=== PATIENT | female | born 1950 | race Caucasian/White ===

== ENCOUNTER 2020-01-08 17:21 | Outpatient (CLI) | payer MEDICARE, SELFPAY | END 2020-01-08 17:22 | disposition home or self-care (01) | LOC: ANHLAB 17:25 | PROVIDERS: PCP Internal Medicine; Visit Provider Internal Medicine | DX: R19.7 Diarrhea, unspecified (principal) | CPT/HCPCS: 87045; 87046; 87427 ==

== ENCOUNTER → 2020-01-22 10:31 | Outpatient (CLI) | payer MEDICARE, OTHER, SELFPAY ==
--- NOTE | ~2020-01-22 | XR_ITS ---
EXAMINATION: XR hip RT min 2V DATE: 01/22/2020 11:07 INDICATION: Anterior right hip pain and limited range of motion post fall 5-6 weeks prior. TECHNIQUE: Anteroposterior and frog-leg lateral views of the right hip were obtained. COMPARISON: None. FINDINGS: Alignment is normal. No fracture or suspected avascular necrosis. Mild right hip osteoarthritis with small marginal osteophytes along the femoral head and acetabulum but relatively preserved joint space . Mild osteoarthritis at the right sacroiliac joint and moderate lower lumbar facet osteoarthritis. M ultiple phleboliths in the pelvis. IMPRESSION: 1. Mild right hip osteoarthritis. Reviewed, dictated and finalized at location B.
== END ==
PROVIDERS: PCP Internal Medicine; Visit Provider Internal Medicine
DX: M25.551 Pain in right hip (principal); W19.XXXA Unspecified fall, initial encounter; M17.11 Unilateral primary osteoarthritis, right knee
CPT/HCPCS: 73502

== ENCOUNTER → 2020-07-11 01:58 | Outpatient (CLI) | payer MEDICARE, OTHER, SELFPAY ==
[2020-07-11 19:34] LABS: SARS-CoV-2 RNA PCR Negative
== END ==
PROVIDERS: PCP Internal Medicine; Visit Provider Internal Medicine Gastroenterology
DX: Z01.812 Encounter for preprocedural laboratory examination (principal); Z20.822 Contact with and (suspected) exposure to COVID-19
CPT/HCPCS: C9803; U0003; U0005

== ENCOUNTER 2020-07-15 01:06 | Day surgery (SDC) | payer MEDICARE, OTHER, SELFPAY ==
[2020-07-02 12:08] VITALS: BMI 28.0
[2020-07-15 10:57] VITALS: BP 112/73; PULSE 94; RESP 16; TEMP 36.8; O2SAT 97; BMI 28.7
[2020-07-15] MEDS: LACTATED RINGERS 1,000 ML 150 ML IV CONT (11:09)
--- NOTE | 2020-07-15 11:24 | WPDANESEPPF ---
Anes - Initial Pre Proc Eval Procedure: Operation Date: 07/15/20 12:30 Proposed Procedures p Colonoscopy - Tashi Grimes MD Date/Time: 07/15/20 11:24 Surgeon: Tashi Grimes MD Pre Op Diagnosis: constipation Patient Data Age: 70 Gender: F Height: 5 ft 1 in Weight: 69 kg Last Vital Signs Temp 98.3 F 07/15/20 10:57 Pulse 94 07/15/20 10:57 Resp 16 07/15/20 10:57 BP 112/73 07/15/20 10:57 Pulse Ox 97 07/15/20 10:57 Allergies Allergy/AdvReac Type Severity Reaction Status Date / Time No Known Allergies Allergy Verified 07/15/20 10:54 Home Medications Medication Instructions Recorded Confirmed Type albuterol sulfate 90 mcg/actuation 2 puff INHALATION Q4-6H #6.7 gm 05/31/19 07/02/20 Rx aerosol inhaler melatonin 5 mg tablet 5 mg PO .BEDTIME tablet 05/31/19 07/15/20 History buspirone 15 mg tablet 15 mg PO DAILY #90 tablet 02/28/20 07/15/20 Rx trazodone 150 mg tablet See Rx Instructions .ROUTE 03/30/20 07/15/20 Rx .COMPLEX #90 tablet ropinirole 1 mg tablet See Rx Instructions .ROUTE 05/27/20 07/15/20 Rx .COMPLEX #90 tablet losartan 50 mg tablet See Rx Instructions .ROUTE 06/22/20 07/15/20 Rx .COMPLEX #90 tablet alendronate [Fosamax] 70 mg PO WEEKLY 07/02/20 07/15/20 History clonazepam [Klonopin] 1 mg PO .COMPLEX PRN 07/02/20 07/15/20 History levothyroxine [Synthroid] 88 mcg PO DAILY 07/02/20 07/15/20 History venlafaxine [Effexor XR] 150 mg PO DAILY 07/02/20 07/15/20 History linaclotide 290 mcg capsule See Rx Instructions .ROUTE 07/06/20 07/15/20 Rx .COMPLEX #90 cap Patient hx anesthesia problems: none Family hx anesthesia problems: none PMFSH Past Medical History Medical History (Updated 06/03/20 @ 14:27 by Marycruz Ortiz DISABILITY REPRESENTATIVE-C) Acute insomnia Allergic rhinitis, seasonal Anxiety Arthritis Bacterial vaginosis Blood clotting disorder Bowel trouble Broken wrist Dementia Depression Diverticulitis GERD (gastroesophageal reflux disease) 6, not currently Hematuria Hemorrhoids Herniated disc High cholesterol History of anemia History of migraine headaches Kidney disease Mammogram abnormal Meniscus degeneration Normal colonoscopy Renal cyst RLS (restless legs syndrome) Stroke Suicide attempt Surgical History Surgical History History of appendectomy Knee joint replacement status Previous back surgery Family History Family History Father Family history of lung disease Depression Family history of malignant neoplasm of gastrointestinal tract Family history of migraine headaches Mother Family history of heart disease in male family member before age 55 Sibling Depression Family history of migraine headaches Other Family history of alcoholism Family history of mental disorder Hypertension Social History Social History Smoking packs per day: 1 Smoking cigarettes per day: 20.0 Years smoked: 6 Smoking pack-years: 6.00 Smoking status: Former smoker Tobacco type: cigarettes Second hand tobacco smoke exposure: No Alcohol intake: current Substance use type: does not use Living arrangements: with family Gender identity (if verbalized by the patient): Female Anes - Eval Final PreProcedure Day of Procedure 07/15/20 11:24 Patient weight: overweight Heart: regular rate and rhythm Lungs: clear to auscultation Airway: Mallampati scale class II Neurological: alert and oriented Last oral intake: >/= 8 hours ASA classification: III Emergent: no Anesthetic plan: proceed Anesthesia type and monitoring: general GIVS and standard monitoring Informed Consent: The patient's anesthetic plan and its attendant risks and benefits were discussed with the patient/family/POA. Questions were solicited and answers provided to the sa
--- NOTE | 2020-07-15 11:43 | PM.HPGS ---
History of Present Illness History of Present Illness Consent: Risks, benefits, and alternatives have been discussed and questions answered. Patient agrees to proceed with procedure. Chief complaint: constipation Narrative: Zena Butler is a 70 year old female with last colonoscopy 5 years ago, father with colon cancer Review of Systems Constitutional: Constitutional: Denies headache(s) and Denies weakness Eyes: Eyes: Denies blurry vision ENT: Reports Normal hearing present, Denies headache(s) and Denies neck pain Cardiovascular: Cardiovascular: Denies chest pain and Denies dyspnea Respiratory: Respiratory: Denies dyspnea Gastrointestinal: Gastrointestinal: Reports no additional gastrointestinal complaints Genitourinary: Genitourinary: Denies dysuria Musculoskeletal: Musculoskeletal: Denies neck pain Integumentary/Breasts: Skin/Breast: Denies dry skin Neurologic: Reports Normal hearing present, Denies headache(s) and Denies weakness Psychiatric: Psychiatric: Denies anxiety Endocrine: Endocrine: Denies change in body appearance Hematologic/Lymphatic: Hematologic/Lymphatic: Denies easy bleeding Allergic/Immunologic: Allergic/Immunologic: Denies urticaria PMFSH Past Medical History Medical History (Updated 07/15/20 @ 11:44 by Tashi Grimes MD) Acute insomnia Allergic rhinitis, seasonal Anxiety Arthritis Bacterial vaginosis Blood clotting disorder Bowel trouble Broken wrist Dementia Depression Diverticulitis Family history of colon cancer GERD (gastroesophageal reflux disease) 6, not currently Hematuria Hemorrhoids Herniated disc High cholesterol History of anemia History of migraine headaches Kidney disease Mammogram abnormal Meniscus degeneration Normal colonoscopy Renal cyst RLS (restless legs syndrome) Stroke Suicide attempt Surgical History Surgical History History of appendectomy Knee joint replacement status Previous back surgery Family History Family History Father Family history of lung disease Depression Family history of malignant neoplasm of gastrointestinal tract Family history of migraine headaches Mother Family history of heart disease in male family member before age 55 Sibling Depression Family history of migraine headaches Other Family history of alcoholism Family history of mental disorder Hypertension Social History Social History Smoking packs per day: 1 Smoking cigarettes per day: 20.0 Years smoked: 6 Smoking pack-years: 6.00 Smoking status: Former smoker Tobacco type: cigarettes Second hand tobacco smoke exposure: No Alcohol intake: current Substance use type: does not use Living arrangements: with family Gender identity (if verbalized by the patient): Female Meds Home Medications and Allergies Home Medications Medication Instructions Recorded Confirmed Type albuterol sulfate 90 mcg/actuation 2 puff INHALATION Q4-6H #6.7 gm 05/31/19 07/02/20 Rx aerosol inhaler melatonin 5 mg tablet 5 mg PO .BEDTIME tablet 05/31/19 07/15/20 History buspirone 15 mg tablet 15 mg PO DAILY #90 tablet 02/28/20 07/15/20 Rx trazodone 150 mg tablet See Rx Instructions .ROUTE 03/30/20 07/15/20 Rx .COMPLEX #90 tablet ropinirole 1 mg tablet See Rx Instructions .ROUTE 05/27/20 07/15/20 Rx .COMPLEX #90 tablet losartan 50 mg tablet See Rx Instructions .ROUTE 06/22/20 07/15/20 Rx .COMPLEX #90 tablet alendronate [Fosamax] 70 mg PO WEEKLY 07/02/20 07/15/20 History clonazepam [Klonopin] 1 mg PO .COMPLEX PRN 07/02/20 07/15/20 History levothyroxine [Synthroid] 88 mcg PO DAILY 07/02/20 07/15/20 History venlafaxine [Effexor XR] 150 mg PO DAILY 07/02/20 07/15/20 History linaclotide 290 mcg capsule See Rx Instructions .ROUTE 07/06/20 07/15/20 Tulio
[2020-07-15 12:09] VITALS: BP 96/61; PULSE 89; RESP 30; O2SAT 94
[2020-07-15 12:19] VITALS: BP 107/72; PULSE 67; RESP 17; O2SAT 100
[2020-07-15 12:29] VITALS: BP 106/69; PULSE 76; RESP 22; O2SAT 100
== END 2020-07-15 12:48 | disposition home or self-care (01) ==
PROVIDERS: PCP Internal Medicine; Visit Provider Internal Medicine Gastroenterology
PROC: 0DJD8ZZ Inspection of Lower Intestinal Tract, Via Natural or Artificial Opening Endoscopic (ICD-10-PCS; CPT 45378; principal; 2020-07-15 12:30)
DX: Z12.11 Encounter for screening for malignant neoplasm of colon (principal); K57.30 Diverticulosis of large intestine without perforation or abscess without bleeding; K64.8 Other hemorrhoids; Z80.0 Family history of malignant neoplasm of digestive organs; K21.9 Gastro-esophageal reflux disease without esophagitis; F03.90 Unspecified dementia, unspecified severity, without behavioral disturbance, psychotic disturbance, mood disturbance, and anxiety; E78.00 Pure hypercholesterolemia, unspecified; G25.81 Restless legs syndrome; Z86.73 Personal history of transient ischemic attack (TIA), and cerebral infarction without residual deficits; F32.9 Major depressive disorder, single episode, unspecified; Z79.51 Long term (current) use of inhaled steroids; Z87.891 Personal history of nicotine dependence
CPT/HCPCS: G0105; C9803; J2704; J7120; U0003; U0005

== ENCOUNTER 2020-07-18 09:59 | Outpatient (CLI) | payer MEDICARE, OTHER, SELFPAY ==
--- NOTE | ~2020-07-18 | US_ITS ---
EXAMINATION: US abdomen complete DATE: 07/18/2020 10:30 INDICATION: Unspecified abdominal pain TECHNIQUE: Multiple grayscale and Doppler ultrasound images of the abdomen were obtained. COMPARISON: CT, 08/11/2017 FINDINGS: The head and body of the pancreas are normal. The pancreatic tail is obscured by bowel gas. The liver is normal with normal echogenicity and echotexture. No surface nodularity. Normal hepatope rosy flow in the main portal vein. The gallbladder is surgically absent. The normal common bile duct m easures 4 mm. The visualized portions of the aorta and inferior vena cava are normal. The right kidney measures 9.1 x 4.8 x 4.8 cm. The left kidney measures 8.3 x 3.5 x 4.4 cm and contain s a 6.2 cm cyst. The kidneys demonstrate normal parenchymal echogenicity. The bladder area was scanne d however the bladder is not visualized due to recent voiding. There is no hydronephrosis. The spleen is normal in appearance and measures 9.7 cm. IMPRESSION: 1. Unremarkable postcholecystectomy ultrasound. Reviewed, dictated and finalized at location F.
== END 2020-07-18 10:00 | disposition home or self-care (01) ==
PROVIDERS: PCP Internal Medicine; Visit Provider Nurse Practitioner
DX: R10.9 Unspecified abdominal pain (principal)
CPT/HCPCS: 76700

== ENCOUNTER → 2021-01-29 05:20 | Outpatient (CLI) | payer MEDICARE, OTHER, SELFPAY ==
[2021-01-29 16:43] LABS: SARS-CoV-2 RNA PCR Negative
== END ==
PROVIDERS: PCP Internal Medicine; Visit Provider Internal Medicine
DX: R68.89 Other general symptoms and signs (principal); Z20.822 Contact with and (suspected) exposure to COVID-19
CPT/HCPCS: C9803; U0003; U0005

== ENCOUNTER 2021-07-17 15:53 | Emergency (ER) | payer MEDICARE, OTHER, SELFPAY ==
--- NOTE | ~2021-07-17 | CT_ITS ---
EXAMINATION: CT abdomen pelvis w con DATE: 07/17/2021 17:10 INDICATION: lower abd pain, no bm for 6 days now with nausea. TECHNIQUE: Computed tomography (CT) of the abdomen and pelvis was performed with 100 mL Omnipaque-350 intravenous contrast. The dose-length product was 444.63 mGy-cm. COMPARISON: 08/11/2017. FINDINGS: Lower thorax: Bibasilar atelectasis. Mild coronary artery calcification. Liver: Normal. Biliary/Gallbladder: Gallbladder is absent. No bile duct dilation. Spleen: Normal. Pancreas: No mass or duct dilation. Adrenals:No mass. Kidneys: Left upper pole simple renal cyst. Left lower pole nephrolith. No hydronephrosis. Scattered bilateral hypodensities that are too small to characterize. GI tract: Distal esophageal and gastric wall edema as can be seen with gastritis. No small or large b owel dilation. Visualized. Mesentery/Peritoneum: No ascites, mass, or free air. Retroperitoneum: No mass. Pelvis: Uterus not visualized, otherwise the organs are within normal limits. Bones/Soft Tissues: Soft tissues and body wall unremarkable. Grade 1 anterolisthesis of L4 on L5. No pars defect. Additional Findings: None. IMPRESSION: No acute abdominopelvic process. Reviewed, dictated and finalized at location K.
[2021-07-17 16:03] VITALS: BP 129/80; PULSE 98; RESP 16; TEMP 36.6; O2SAT 97
--- NOTE | 2021-07-17 16:08 | ED.ABDPAIN ---
HPI - Abdominal Pain General Chief Complaint: Abdominal Pain Stated Complaint: think i have a bowel blockage Time Seen by Provider: 07/17/21 15:54 Source: patient History of Present Illness HPI narrative: Patient presents with abdominal pain. Patient reports she has a longstanding history of constipation has a bowel movement approximately once a week and required multiple doses of MiraLAX and stool softeners to initiate her bowel movement. Last bowel movement was approximately 6 days ago but she also reports she had a liquidy stool this morning has attempted her usual routine but now has some nausea so she came to the ER for evaluation. Patient also reporting abdominal pain for the past 3 days is achy, constant, no radiation, no clear aggravating or alleviating factors. She denies any urinary symptoms denies any fever any known sick contacts. Related Data Allergies Allergy/AdvReac Type Severity Reaction Status Date / Time No Known Allergies Allergy Verified 07/17/21 16:22 Review of Systems Review of Systems: CONSTITUTIONAL: Denies fever, chills, or sweats. EYES: Denies visual changes, redness, or discharge. ENT: Denies rhinorrhea, congestion, sore throat, or otalgia. CARDIOVASCULAR: Denies chest pain, palpitations, or edema. RESPIRATORY: Denies cough or dyspnea. GASTROINTESTINAL: Mild pain nausea and vomiting GENITOURINARY: Denies dysuria or hematuria. SKIN: Denies rash or itching. MUSCULOSKELETAL: Denies back pain, joint pain, or myalgia. NEUROLOGIC: Denies headache, numbness, dizziness, or weakness. PSYCHIATRIC: Denies anxiety or depression. All systems reviewed & are unremarkable except as noted in HPI and below PMFSH Past Medical History Medical History Acute insomnia Allergic rhinitis, seasonal Anxiety Arthritis Bacterial vaginosis Blood clotting disorder Bowel trouble Broken wrist Dementia Depression Diverticulitis GERD (gastroesophageal reflux disease) 6, not currently Hematuria Hemorrhoids Herniated disc High cholesterol History of anemia History of migraine headaches Kidney disease Mammogram abnormal Meniscus degeneration Normal colonoscopy Renal cyst RLS (restless legs syndrome) Screening for lipid disorders Stroke Suicide attempt Surgical History Surgical History History of appendectomy Knee joint replacement status Previous back surgery Family History Family History Father Family history of lung disease Depression Family history of malignant neoplasm of gastrointestinal tract Family history of migraine headaches Mother Family history of heart disease in male family member before age 55 Sibling Depression Family history of migraine headaches Other Family history of alcoholism Family history of mental disorder Hypertension Social History Social History Smoking packs per day: 1 Smoking cigarettes per day: 20.0 Years smoked: 6 Smoking pack-years: 6.00 Smoking status: Never smoker Tobacco type: cigarettes Second hand tobacco smoke exposure: No Alcohol intake: current Substance use type: does not use Gender identity (if verbalized by the patient): Female Exam Narrative: GENERAL: Well-appearing, well-nourished, and in no acute distress. HEAD: Normocephalic, atraumatic. EYES: PERRLA and EOMI. ENT: Nares clear, no rhinorrhea or epistaxis. Mucous membranes moist. NECK: Supple. No masses. No JVD CHEST: Clear to auscultation. No respiratory distress. No wheezes rales or rhonchi HEART: Regular rate and rhythm. No murmur heard. Normal peripheral pulses. ABDOMEN: Mild pain with deep palpation in the lower abdomen no rebound or guarding soft, nondistended EXTREMITIES: Normal range of motion. No edema. SKIN: Warm, dry, no holli
[2021-07-17] MEDS: SODIUM CHLORIDE 0.9% IV 1,000 ML 999 ML IV CONT (16:25)
[2021-07-17 16:27] LABS: Basophils Percent Auto 0.5 % (0.2-1.2); Eosinophils Absolute Auto 0.1 K/mm3 (0-0.3); Hematocrit 39.3 % (37.0-47.0); Hemoglobin 12.4 g/dL (12.0-15.0); Immature Granulocyte Absolute 0.04 K/mm3 (0.00-0.031); Immature Granulocyte Percent A 0.5 % (0-0.5); Lymphocytes Absolute Auto 1.91 K/mm3 (0.9-3.2); Lymphocytes Percent Auto 23.1 % (18.3-44.2); Mean Corpuscular HGB Conc 31.6 g/dl (32-36); Mean Corpuscular Hemoglobin 26.7 pg (26-34); Mean Corpuscular Volume 84.7 fl (80-100); Mean Platelet Volume 9.3 fl (7.4-10.4); Monocytes Absolute Auto 0.6 K/mm3 (0.1-0.6); Monocytes Percent Auto 7.5 % (2.6-8.5); Neutrophils Absolute Auto 5.6 K/mm3 (1.3-6.7); Neutrophils Percent Auto 67.4 % (45.5-73.1); Platelet Count Result 203 k/mm3 (150-375); Red Blood Count 4.64 M/mm3 (4.2-5.4); Red Cell Distribution Width 14.4 % (11.5-14.5); White Blood Count 8.3 K/mm3 (4.5-10.0)
[2021-07-17 16:31] LABS: Add Urine Microscopic? YES; Appearance Urine Clear (Clear); Bilirubin Urine Negative (Negative); Blood Urine 2+ (Negative); Color Urine Straw (Yellow); Glucose Urine UA Negative (Negative); Ketones Urine Negative (Negative); Leukocyte Esterase Ur Negative LEU/UL (Negative); Nitrate Urine Negative (Negative); Protein Urine Negative (Negative); RBC Urine 0-2 /hpf (0-2); Urobilinogen Urine Negative mg/dL (<2.0); WBC Urine 0-3 /hpf
[2021-07-17 16:34] LABS: Specific Grav Ur 1.003 (1.001-1.035)
[2021-07-17 16:36] LABS: Alanine Aminotransferase 13 U/L (4-35); Albumin Level 4.2 g/dL (3.5-5.1); Alkaline Phosphatase 72 U/L (38-126); Anion Gap 7 mmol/L (8-16); Aspartate Amino Transferase 23 U/L (14-36); Bilirubin,Total 0.3 mg/dL (0.2-1.3); Blood Urea Nitrogen 16 mg/dL (7-17); Calcium 8.7 mg/dL (8.4-10.2); Carbon Dioxide 24 mmol/L (22-30); Chloride 105 mmol/L (98-107); Estimated CRCL calculation 52 ml/min; Estimated Glomerular Filt Rate > 60; Glucose 106 mg/dL (65-110); Lipase 72 U/L (23-300); Potassium 3.7 mmol/L (3.4-5.0); Sodium 136 mmol/L (137-145)
[2021-07-17 16:52] VITALS: BP 133/89; PULSE 90; RESP 14; O2SAT 97
[2021-07-17 18:12] VITALS: BP 117/73; PULSE 89; RESP 15; O2SAT 97
== END 2021-07-17 18:15 | disposition home or self-care (01) ==
PROVIDERS: Emergency Provider Emergency Medicine; PCP Internal Medicine
DX: R10.30 Lower abdominal pain, unspecified (principal); K59.09 Other constipation; F03.90 Unspecified dementia, unspecified severity, without behavioral disturbance, psychotic disturbance, mood disturbance, and anxiety; E78.00 Pure hypercholesterolemia, unspecified; N28.9 Disorder of kidney and ureter, unspecified; M19.90 Unspecified osteoarthritis, unspecified site; K21.9 Gastro-esophageal reflux disease without esophagitis; G25.81 Restless legs syndrome; D68.9 Coagulation defect, unspecified; F17.210 Nicotine dependence, cigarettes, uncomplicated; Z86.2 Personal history of diseases of the blood and blood-forming organs and certain disorders involving the immune mechanism; Z86.73 Personal history of transient ischemic attack (TIA), and cerebral infarction without residual deficits; Z96.659 Presence of unspecified artificial knee joint
CPT/HCPCS: 36415; 74177; 80053; 81001; 83690; 85025; 96360; 99284; J7030; Q9967

== ENCOUNTER 2022-02-24 16:45 | Emergency (ER) | payer MEDICARE, SELFPAY ==
[2022-02-24 16:52] VITALS: BP 129/82; PULSE 90; RESP 16; TEMP 36.9; O2SAT 97
== END 2022-02-24 17:33 | disposition left against medical advice (07) ==
LOC: EXPGOSH 16:47
PROVIDERS: Emergency Provider Registered Nurse; PCP Internal Medicine
DX: Z53.21 Procedure and treatment not carried out due to patient leaving prior to being seen by health care provider (principal)
CPT/HCPCS: 99199

== ENCOUNTER 2022-07-15 12:57 | Outpatient (CLI) | payer MEDICARE, SELFPAY ==
[2022-07-15 14:00] LABS: Appearance Urine Clear (Clear); Bacteria Urine None Seen /hpf; Bilirubin Urine Negative (Negative); Blood Urine Trace (Negative); Color Urine Yellow (Yellow); Glucose Urine UA Negative (Negative); Ketones Urine Negative (Negative); Leukocyte Esterase Ur Negative LEU/UL (NEGATIVE); Nitrate Urine Negative (Negative); Non Pathogenic Casts 0-2; Protein Urine Negative (Negative); Specific Grav Ur 1.014 (1.001-1.035); Squamous Epithelial Cell Urine None seen /hpf (Few); Urobilinogen Urine 0.2 mg/dL (<2.0); WBC Urine 0-5 /hpf (0-3)
[2022-07-15 14:06] LABS: Add Urine Microscopic? YES
== END 2022-07-15 12:58 | disposition home or self-care (01) ==
LOC: ANHLAB 12:59
PROVIDERS: PCP Internal Medicine; Visit Provider Nurse Practitioner
DX: R31.9 Hematuria, unspecified (principal)
CPT/HCPCS: 81001

== ENCOUNTER 2022-07-29 09:12 | Outpatient (CLI) | payer MEDICARE, SELFPAY ==
[2022-07-29 09:34] LABS: Appearance Urine Clear (Clear); Bacteria Urine None Seen /hpf; Bilirubin Urine Negative (Negative); Blood Urine 2+ (Negative); Color Urine Yellow (Yellow); Glucose Urine UA Negative (Negative); Ketones Urine Trace mg/dL (Negative); Leukocyte Esterase Ur Trace LEU/UL (Negative); Nitrate Urine Negative (Negative); Non Pathogenic Casts 0-2; Protein Urine Negative (Negative); Specific Grav Ur 1.016 (1.001-1.035); Squamous Epithelial Cell Urine None seen /hpf (Few); WBC Urine 0-5 /hpf
[2022-07-29 09:38] LABS: Add Urine Microscopic? YES
== END 2022-07-29 09:13 | disposition home or self-care (01) ==
PROVIDERS: PCP Internal Medicine; Visit Provider Nurse Practitioner
DX: R31.9 Hematuria, unspecified (principal)
CPT/HCPCS: 81001

== ENCOUNTER 2022-08-09 10:43 | Emergency (ER) | payer MEDICARE, OTHER, SELFPAY ==
--- NOTE | ~2022-08-09 | XR_ITS ---
EXAMINATION: XR heel RT min 2V DATE: 08/09/2022 11:11 INDICATION: Right heel pain TECHNIQUE: Lateral and axial views of the right calcaneus were obtained. COMPARISON: None. FINDINGS: Bone alignment is normal. No fracture. Joint spaces are normal. No ankle joint effusion. Small Achill es and plantar calcaneal spurs with additional small enthesopathic ossicle at the distal Achilles ten don. No erosions. IMPRESSION: 1. Chronic Achilles and plantar calcaneal enthesopathy with small enthesophytes and small enthesopath ic ossicle in the distal Achilles tendon. Reviewed, dictated and finalized at location L. IMPRESSION: 1. Chronic Achilles and plantar calcaneal enthesopathy with small enthesophytes and small enthesopathic ossicle in the distal Achilles tendon.
--- NOTE | 2022-08-09 10:46 | ED.LOWEXIN ---
HPI - Extremity Injury (Lower) General Chief Complaint: Extremity Injury, Lower Stated Complaint: R HEEL PAIN Time Seen by Provider: 08/09/22 10:46 Source: patient and RN notes reviewed History of Present Illness HPI Narrative: Patient is a 72-year-old female who presents to urgent care with complaints of right heel pain that radiates to the side of the foot. Patient states she believes she has plantar fasciitis. States that she had this issue approximately 6 months ago and saw information security analyst to gave her a cortisone shot. Patient states she has been working in the [employer] a lot and wanted to make sure she did not fracture or injure the heel. Patient is requesting another cortisone shot if it truly is plantar fasciitis. Patient has not taken anything [id number] for her pain. States that she does wear insoles in her shoes without any relief. No other acute complaints. No acute distress noted. Patient aware of the plan of care. Some parts of this dictation were generated by voice recognition software and may contain typographical and/or grammatical inaccuracies. Related Data Home Medications Medication Instructions Recorded Confirmed albuterol sulfate 90 mcg/actuation 2 puff inhalation Q4-6H PRN 06/21/22 08/09/22 aerosol inhaler Shortness Of Breath buspirone 15 mg tablet 15 mg PO ONCE 06/29/22 08/09/22 Allergies Allergy/AdvReac Type Severity Reaction Status Date / Time No Known Allergies Allergy Verified 08/09/22 10:53 Review of Systems Review of Systems: CONSTITUTIONAL: Denies fever, chills, or sweats. EYES: Denies visual changes, redness, or discharge. ENT: Denies rhinorrhea, congestion, sore throat, or otalgia. CARDIOVASCULAR: Denies chest pain, palpitations, or edema. RESPIRATORY: Denies cough or dyspnea. GASTROINTESTINAL: Denies abdominal pain, nausea, vomiting, or diarrhea. GENITOURINARY: Denies dysuria or hematuria. SKIN: Denies rash or itching. MUSCULOSKELETAL: Reports of right heel pain NEUROLOGIC: Denies headache, numbness, or weakness. All other systems reviewed are negative, except as documented in HPI. [facility] Past Medical History Medical History (Updated 08/09/22 @ 11:51 by JAELYN Hernandez) Acute insomnia Allergic rhinitis, seasonal Anxiety Arthritis Bacterial vaginosis Blood clotting disorder Bowel trouble Broken wrist Cataract (lens) fragments in eye following cataract surgery, bilateral COVID-19 Dementia Depression Diverticulitis GERD (gastroesophageal reflux disease) 6, not currently Hematuria Hemorrhoids Herniated disc High cholesterol History of anemia History of migraine headaches Kidney disease Mammogram abnormal Meniscus degeneration Normal colonoscopy Renal cyst RLS (restless legs syndrome) Screening for lipid disorders Stroke Suicide attempt Surgical History Surgical History History of appendectomy Knee joint replacement status Previous back surgery Family History Family History Father Family history of lung disease Depression Family history of malignant neoplasm of gastrointestinal tract Family history of migraine headaches Mother Family history of heart disease in male family member before age 55 Sibling Depression Family history of migraine headaches Other Family history of alcoholism Family history of mental disorder Hypertension Social History Social History Smoking packs per day: 1 Smoking cigarettes per day: 20.0 Years smoked: 6 Smoking pack-years: 6.00 Smoking status: Former smoker Tobacco type: cigarettes Second hand tobacco smoke exposure: No Smoking end date: 04/10/75 Alcohol intake: never Substance use: current Substance use type: marijuana Living arrangements: with family Gender identity (if verbalized by the patient): Female
[2022-08-09 10:54] VITALS: BP 125/83; PULSE 85; RESP 16; TEMP 36.4; O2SAT 99
[2022-08-09 11:00] VITALS: BP 125/83; PULSE 85; RESP 16; TEMP 36.4; O2SAT 99
== END 2022-08-09 11:53 | disposition home or self-care (01) ==
PROVIDERS: Emergency Provider Nurse Practitioner Family; PCP Internal Medicine
DX: M77.31 Calcaneal spur, right foot (principal); Z87.891 Personal history of nicotine dependence; F12.90 Cannabis use, unspecified, uncomplicated; F41.9 Anxiety disorder, unspecified; M19.90 Unspecified osteoarthritis, unspecified site; Z86.16 Personal history of COVID-19; F03.90 Unspecified dementia, unspecified severity, without behavioral disturbance, psychotic disturbance, mood disturbance, and anxiety; F32.A Depression, unspecified; K21.9 Gastro-esophageal reflux disease without esophagitis; E78.00 Pure hypercholesterolemia, unspecified; G25.81 Restless legs syndrome; Z86.73 Personal history of transient ischemic attack (TIA), and cerebral infarction without residual deficits
CPT/HCPCS: 73650; 99213; G0463

== ENCOUNTER → 2022-08-17 14:10 | Outpatient (CLI) | payer MEDICARE, OTHER, SELFPAY ==
--- NOTE | ~2022-08-17 | MR_ITS ---
MRI of the lumbar spine Clinical History: Lumbar radiculopathy Technique: Axial T2-weighted images, and sagittal T1-weighted, T2-weighted, and T2 fat-sat images wer e acquired. Findings: Minimal grade 1 anterolisthesis of L4 over L5 noted. Minimal grade 1 retrolisthesis of L5 o tita S1 noted. No fracture. No suspicious bone marrow signal abnormality seen. At L1-L2, L2-L3, L3-L4, there is no disc bulge or herniation. There are moderate facet joint degenera tive changes at these levels. No spinal canal stenosis or neural foraminal narrowing at these levels. At L4-L5, there is minimal disc bulge. There is severe facet arthropathy bilaterally. No humble centra l canal stenosis. Bilateral neural foramina are preserved. At L5-S1, there is mild disc bulge and mild facet arthropathy. No humble spinal canal stenosis. There is moderate right neural foraminal narrowing and mild left neural foraminal narrowing. Paravertebral soft tissues are unremarkable. Impression: Bilateral neural foraminal narrowing at L5-S1, as detailed above. Additional mild degenerative changes, as above. Minimal grade 1 anterolisthesis of L4 over L5. Minimal grade 1 retrolisthesis of L5 over S1. Reviewed, dictated and finalized at location . Impression: Bilateral neural foraminal narrowing at L5-S1, as detailed above. Additional mild degenerative changes, as above. Minimal grade 1 anterolisthesis of L4 over L5. Minimal grade 1 retrolisthesis of L5 over S1.
== END ==
PROVIDERS: PCP Internal Medicine; Visit Provider Nurse Practitioner Family
DX: M54.16 Radiculopathy, lumbar region (principal)
CPT/HCPCS: 72148

== ENCOUNTER 2022-09-22 14:39 | Outpatient (CLI) | payer MEDICARE, OTHER, SELFPAY ==
--- NOTE | ~2022-09-22 | MM_ITS ---
EXAMINATION: MM screening [place] BI w [facility] HISTORY: Screening mammogram TECHNIQUE: Craniocaudal and mediolateral oblique 3-D tomosynthesis images were obtained and synthetic 2-D images were generated. CAD analysis was submitted and interpreted. COMPARISON: 08/03/2017, 12/15/2015 bilateral screening mammogram examinations BREAST PARENCHYMAL COMPOSITION: There are scattered areas of fibroglandular density. FINDINGS: There is no evidence of suspicious mass, calcification, or architectural distortion to sugg est malignancy in either breast. There has been no suspicious interval change. IMPRESSION: 1. No mammographic evidence of malignancy. 2. Recommend routine screening mammography in one year. BI-RADS Category 1: Negative Reviewed, dictated and finalized at location A.
== END 2022-09-22 14:40 | disposition home or self-care (01) ==
LOC: ANHIMG 14:42
PROVIDERS: PCP Internal Medicine; Visit Provider Nurse Practitioner
DX: Z12.31 Encounter for screening mammogram for malignant neoplasm of breast (principal)
CPT/HCPCS: 77063; 77067

== ENCOUNTER 2023-01-10 13:58 | Outpatient (CLI) | payer MEDICARE, OTHER, SELFPAY ==
[2023-01-10 15:01] LABS: Alanine Aminotransferase 16 U/L (6-35); Albumin Level 4.1 g/dL (3.5-5.1); Alkaline Phosphatase 63 U/L (38-126); Anion Gap 6 mmol/L (8-16); Aspartate Amino Transferase 22 U/L (14-36); Bilirubin,Total 0.5 mg/dL (0.2-1.3); Blood Urea Nitrogen 14 mg/dL (7-17); Calcium 8.5 mg/dL (8.4-10.2); Carbon Dioxide 30 mmol/L (22-30); Chloride 103 mmol/L (98-107); Cholesterol 192 mg/dL (0-200); Estimated Glomerular Filt Rate > 60; Glucose 94 mg/dL (65-110); HDL Direct 53 mg/dL; Potassium 3.8 mmol/L (3.4-5.0); Sodium 139 mmol/L (137-145); Triglycerides 130 mg/dL (<150)
[2023-01-10 15:25] LABS: Vitamin D 25 Hydroxy 43.1 ng/mL
[2023-01-10 15:59] LABS: LDL Cholesterol Direct 88 mg/dL
== END 2023-01-10 13:59 | disposition home or self-care (01) ==
LOC: ANHLAB 14:00
PROVIDERS: PCP Nurse Practitioner; Visit Provider Nurse Practitioner
DX: E78.2 Mixed hyperlipidemia (principal); E55.9 Vitamin D deficiency, unspecified
CPT/HCPCS: 36415; 80053; 80061; 82306

== ENCOUNTER 2023-01-31 13:52 | Emergency (ER) | payer MEDICARE, SELFPAY ==
[2023-01-31] VITALS (17 sets, daily range): BP systolic 121–141; BP diastolic 75–94; PULSE 77–108; RESP 17–20; TEMP 36.7; O2SAT 96–100
--- NOTE | ~2023-01-31 | CT_ITS ---
EXAMINATION: CT abdomen pelvis w con DATE: 01/31/2023 15:04 INDICATION: Abdomen pain with constipation TECHNIQUE: Computed tomography (CT) of the abdomen and pelvis was performed with 100 cc Omnipaque 350 intravenous contrast. The dose-length product was 489.96 mGy-cm. Automated exposure control and iter ative reconstruction technique were employed. COMPARISON: CT dated 07/17/2021. FINDINGS: There are air-fluid levels throughout the small bowel and:, Consistent with ileus. No obstr uction. Fatty infiltration of the liver. Status post cholecystectomy with expected prominence of the bile ducts. Lung bases unremarkable. There is a 6.8 cm left renal cyst. Status post hysterectomy. The spleen, pancreas, adrenal glands and right kidney are unremarkable. There is disc narrowing at L5-S1 . There is grade 1 degenerative spondylolisthesis at L4-5. There are nonobstructing left renal stones at the lower pole. IMPRESSION: 1. Air-fluid levels throughout the small bowel and colon, consistent with ileus. No obstruction. 2: Nonobstructing left nephrolithiasis. Reviewed, dictated and finalized at location L. IMPRESSION: 1. Air-fluid levels throughout the small bowel and colon, consistent with ileus . No obstruction. 2: Nonobstructing left nephrolithiasis.
[2023-01-31 14:19] LABS: Basophils Absolute Auto 0.1 K/mm3 (0.0-0.1); Basophils Percent Auto 0.7 % (0.2-1.2); Eosinophils Absolute Auto 0.1 K/mm3 (0-0.3); Eosinophils Percent Auto 1.2 % (0-4.4); Hematocrit 44.7 % (37.0-47.0); Hemoglobin 14.1 g/dL (12.0-15.0); Immature Granulocyte Absolute 0.08 K/mm3 (0.00-0.031); Immature Granulocyte Percent A 0.8 % (0-0.5); Lymphocytes Absolute Auto 2.24 K/mm3 (0.9-3.2); Lymphocytes Percent Auto 22.3 % (18.3-44.2); Mean Corpuscular HGB Conc 31.5 g/dl (32-36); Mean Corpuscular Volume 85.5 fl (80-100); Mean Platelet Volume 9.9 fl (7.4-10.4); Monocytes Absolute Auto 0.8 K/mm3 (0.1-0.6); Monocytes Percent Auto 8.3 % (2.6-8.5); Neutrophils Absolute Auto 6.7 K/mm3 (1.3-6.7); Neutrophils Percent Auto 66.7 % (45.5-73.1); Platelet Count Result 206 k/mm3 (150-375); Red Blood Count 5.23 M/mm3 (4.2-5.4); Red Cell Distribution Width 14.3 % (11.5-14.5)
--- NOTE | 2023-01-31 14:19 | ED.ABDPAIN ---
HPI - Abdominal Pain General Chief Complaint: Abdominal Pain <RAJINDER Jarrett Last Filed: 01/31/23 18:53> Stated Complaint: blocked bowel <RAJINDER Jarrett Last Filed: 01/31/23 18:53> Time Seen by Provider: 01/31/23 16:51 <RAJINDER Jarrett Last Filed: 01/31/23 18:53> Source: patient <RAJINDER Jarrett Last Filed: 01/31/23 18:53> Mode of arrival: ambulatory <RAJINDER Jarrett Last Filed: 01/31/23 18:53> Limitations: no limitations <RAJINDER Jarrett Last Filed: 01/31/23 18:53> History of Present Illness HPI narrative: This is a 72 year old female that presents to the ER for abdominal discomfort. Ongoing over the last week. Reports she has not had a bowel movement. She has been using enemas without relief. Denies fever or vomiting. <RAJINDER Jarrett Last Filed: 01/31/23 18:53> Related Data Home Medications: Home Medications Medication Instructions Recorded Confirmed albuterol sulfate 90 mcg/actuation 2 puff inhalation Q4-6H PRN 06/21/22 12/13/22 aerosol inhaler Shortness Of Breath buspirone 15 mg tablet 15 mg PO ONCE 06/29/22 12/13/22 <RAJINDER Jarrett Last Filed: 01/31/23 18:53> Allergies/Adverse Reactions: Allergies Allergy/AdvReac Type Severity Reaction Status Date / Time No Known Allergies Allergy Verified 01/31/23 13:53 <RAJINDER Jarrett Last Filed: 01/31/23 18:53> Review of Systems Review of Systems: CONSTITUTIONAL: Denies fever GASTROINTESTINAL: Reports abdominal pain. Denies nausea, vomiting, or diarrhea. GENITOURINARY: Denies dysuria <RAJINDER Jarrett Last Filed: 01/31/23 18:53> All systems reviewed & are unremarkable except as noted in HPI and below <RAJINDER Jarrett Last Filed: 01/31/23 18:53> [facility] Past Medical History Medical History: Medical History (Updated 02/01/23 @ 00:00 by Eduard Owens) Acute insomnia Allergic rhinitis, seasonal Anxiety Arthritis Bacterial vaginosis Blood clotting disorder Bowel trouble Broken wrist Cataract (lens) fragments in eye following cataract surgery, bilateral COVID-19 Dementia Depression Diverticulitis GERD (gastroesophageal reflux disease) 6, not currently Hematuria Hemorrhoids Herniated disc High cholesterol History of anemia History of migraine headaches Kidney disease Mammogram abnormal Meniscus degeneration Normal colonoscopy Renal cyst RLS (restless legs syndrome) Screening for lipid disorders Stroke Suicide attempt <Rosa Montero PA-C - Last Filed: 01/31/23 18:53> Surgical History Surgical History: Surgical History History of appendectomy Knee joint replacement status Previous back surgery <Rosa Montero PA-C - Last Filed: 01/31/23 18:53> Family History Family History: Family History (Updated 01/10/23 @ 13:23 by Altagracia Carl [facility]) Father Family history of lung disease Depression Family history of malignant neoplasm of gastrointestinal tract Family history of migraine headaches Family history of alcoholism Cancer Mother Family history of heart disease in male family member before age 55 Hypertension Sibling Depression Family history of migraine headaches Cancer Other Family history of mental disorder <Rosa Montero PA-C - Last Filed: 01/31/23 18:53> Social History Social History: Social History Smoking packs per day: 1 Smoking cigarettes per day: 20.0 Years smoked: 6 Smoking pack-years: 6.00 Smoking status: Former smoker Tobacco type: cigarettes Second hand tobacco smoke exposure: No Smoking end date: 04/10/75 Alcohol intake: never Substance use: current Substance use type: marijuana Lack of Transportation: No Current Housing: I Have Housing Concerned About Future Housing: No
[2023-01-31 14:28] LABS: Alanine Aminotransferase 19 U/L (6-35); Albumin Level 4.3 g/dL (3.5-5.1); Alkaline Phosphatase 64 U/L (38-126); Anion Gap 9 mmol/L (8-16); Aspartate Amino Transferase 23 U/L (14-36); Bilirubin,Total 0.6 mg/dL (0.2-1.3); Blood Urea Nitrogen 12 mg/dL (7-17); Calcium 8.8 mg/dL (8.4-10.2); Carbon Dioxide 25 mmol/L (22-30); Chloride 102 mmol/L (98-107); Estimated CRCL calculation 50 ml/min; Estimated Glomerular Filt Rate > 60; Glucose 118 mg/dL (65-110); Lipase 71 U/L (23-300); Potassium 3.6 mmol/L (3.4-5.0); Sodium 136 mmol/L (137-145)
[2023-01-31 14:36] LABS: Appearance Urine Clear (Clear); Bacteria Urine None Seen /hpf; Bilirubin Urine Negative (Negative); Blood Urine 1+ (Negative); Color Urine Yellow (Yellow); Glucose Urine UA Negative (Negative); Ketones Urine Negative (Negative); Leukocyte Esterase Ur Negative LEU/UL (Negative); Nitrate Urine Negative (Negative); Non Pathogenic Casts 0-2; Protein Urine Negative (Negative); RBC Urine 0-2 /hpf (0-2); Specific Grav Ur 1.009 (1.001-1.035); Squamous Epithelial Cell Urine None seen /hpf (Few); Urobilinogen Urine 0.2 mg/dL (<2.0); WBC Urine 0-5 /hpf; pH Urine 5.5 (5.0-9.0)
[2023-01-31 14:42] LABS: Add Urine Microscopic? YES
[2023-01-31] MEDS: METOCLOPRAMIDE HCL 10 MG TABLET PO (18:48)
== END 2023-01-31 19:01 | disposition home or self-care (01) ==
PROVIDERS: Emergency Medicine; Emergency Provider Emergency Medicine; PCP Nurse Practitioner
DX: K56.7 Ileus, unspecified (principal); F41.9 Anxiety disorder, unspecified; M19.90 Unspecified osteoarthritis, unspecified site; F03.90 Unspecified dementia, unspecified severity, without behavioral disturbance, psychotic disturbance, mood disturbance, and anxiety; K21.9 Gastro-esophageal reflux disease without esophagitis
CPT/HCPCS: 36415; 74177; 80053; 81001; 83690; 85025; 99284; A9270; Q9967

== ENCOUNTER 2023-02-07 13:09 | Outpatient (CLI) | payer MEDICARE, SELFPAY ==
--- NOTE | ~2023-02-07 | XR_ITS ---
EXAMINATION: XR abdomen obstructive series DATE: 02/07/2023 13:32 INDICATION: History of Crohn's disease. Ileus. TECHNIQUE: Supine and upright views of the abdomen. FINDINGS: 08/08/2011 The visualized lung parenchyma is normal.. There is a nonobstructive bowel gas pattern. Gas and stool are seen throughout the colon to the level of the rectum. There is no free air. There are left nasreen l stones. There are multiple pelvic phleboliths. There are cholecystectomy clips. IMPRESSION: 1. Left nephrolithiasis. Reviewed, dictated and finalized at location A. IMPRESSION: 1. Left nephrolithiasis.
== END 2023-02-07 13:10 | disposition home or self-care (01) ==
PROVIDERS: PCP Nurse Practitioner; Visit Provider Nurse Practitioner
DX: K56.7 Ileus, unspecified (principal); N20.0 Calculus of kidney
CPT/HCPCS: 74019

== ENCOUNTER 2023-02-24 00:31 | Day surgery (SDC) | payer MEDICARE, SELFPAY ==
[2023-02-21 14:41] VITALS: BMI 29.3
--- NOTE | 2023-02-22 10:13 | SUR.PREOP ---
Patient called regarding upcoming procedure. Reviewed preop instructions, appointment times, and procedure prep.
--- NOTE | 2023-02-22 10:16 | SUR.PREOP ---
Patient called regarding upcoming procedure. Reviewed preop instructions, appointment times, and procedure prep.
[2023-02-24 06:15] VITALS: BP 125/85; PULSE 119; RESP 18; TEMP 36.2; O2SAT 96
[2023-02-24] MEDS: LACTATED RINGERS 1,000 ML 150 ML IV CONT (06:23)
--- NOTE | 2023-02-24 07:23 | WPDHPUPDATE1 ---
History and Physical Update Update Date/Time: 02/24/23 07:23 History and Physical has been reviewed, including an updated exam of the patient. There are NO changes in the patient's condition. Risks, benefits, and alternatives have been discussed and questions answered. Patient agrees to proceed with procedure.
--- NOTE | 2023-02-24 07:42 | WPDANESEPPF ---
Anes - Initial Pre Proc Eval Procedure: Operation Date: 02/24/23 07:30 Proposed Procedures p Colonoscopy - Tashi Grimes MD Date/Time: 02/24/23 07:42 Surgeon: Tashi Grimes MD Pre Op Diagnosis: FA hx of malignant neoplasm of digestive organs Patient Data Age: 72 Gender: F Height: 1.52 m Weight: 69.1 kg Last Vital Signs Temp 97.1 F L 02/24/23 06:15 Pulse 119 H 02/24/23 06:15 Resp 18 02/24/23 06:15 BP 125/85 02/24/23 06:15 Pulse Ox 96 02/24/23 06:15 O2 Del Method Room Air 02/24/23 06:15 Allergies Allergy/AdvReac Type Severity Reaction Status Date / Time No Known Allergies Allergy Verified 02/24/23 06:15 Home Medications Medication Instructions Recorded Confirmed Type albuterol sulfate 90 mcg/actuation 2 puff inhalation Q4-6H PRN 06/21/22 02/21/23 History aerosol inhaler Shortness Of Breath linaclotide 290 mcg capsule See Rx Instructions .Route 11/01/22 02/21/23 Rx (Linzess) .COMPLEX #30 caps venlafaxine 150 mg See Rx Instructions .Route 11/28/22 02/21/23 Rx capsule,extended release 24 hr .COMPLEX #90 caps ropinirole 1 mg tablet See Rx Instructions .Route 12/05/22 02/21/23 Rx .COMPLEX #90 tabs alendronate 70 mg tablet 70 mg PO WEEKLY #12 tabs 12/13/22 02/21/23 Rx acetaminophen-calcium carbonat 500 2 tablet PO PRN PRN Pain 02/21/23 02/21/23 History mg-250 mg tablet buspirone 15 mg tablet 15 mg PO DAILY 02/21/23 02/21/23 History clonazepam 1 mg tablet 1 mg PO HS insomnia 02/21/23 02/21/23 History trazodone 150 mg tablet See Rx Instructions .Route 02/22/23 Rx .COMPLEX #90 tabs Patient hx anesthesia problems: none Family hx anesthesia problems: none Results Review: All pre-operative results and documents have been reviewed as part of the pre-operative evaluation. [facility] Past Medical History Medical History Acute insomnia Allergic rhinitis, seasonal Anxiety Arthritis Bacterial vaginosis Blood clotting disorder Bowel trouble Broken wrist Cataract (lens) fragments in eye following cataract surgery, bilateral COVID-19 Dementia Depression Diverticulitis GERD (gastroesophageal reflux disease) 6, not currently Hematuria Hemorrhoids Herniated disc High cholesterol History of anemia History of migraine headaches Kidney disease Mammogram abnormal Meniscus degeneration Normal colonoscopy Renal cyst RLS (restless legs syndrome) Screening for lipid disorders Stroke Suicide attempt Surgical History Surgical History History of appendectomy Knee joint replacement status Previous back surgery Family History Family History Father Family history of lung disease Depression Family history of malignant neoplasm of gastrointestinal tract Family history of migraine headaches Family history of alcoholism Cancer Mother Family history of heart disease in male family member before age 55 Hypertension Sibling Depression Family history of migraine headaches Cancer Other Family history of mental disorder Social History Social History Smoking packs per day: 1 Smoking cigarettes per day: 20.0 Years smoked: 6 Smoking pack-years: 6.00 Smoking status: Former smoker Tobacco type: cigarettes Second hand tobacco smoke exposure: No Smoking end date: 04/10/75 Alcohol intake: never Substance use: current Substance use type: marijuana Other substance usage details: 1/2 edible gummy for back pain a few times weekly Lack of Transportation: No Current Housing: I Have Housing Concerned About Future Housing: No Difficulty Paying Gas/Electric Bills: No Difficulty Paying for Meds: No Currently Unemployed: No Education: Trade/[employer]oc[employer]
[2023-02-24 07:50] VITALS: BP 106/67; PULSE 88; RESP 21; O2SAT 95
[2023-02-24 08:00] VITALS: BP 130/79; PULSE 91; RESP 24; O2SAT 95
[2023-02-24 08:10] VITALS: BP 139/87; PULSE 93; RESP 22; O2SAT 98
== END 2023-02-24 08:16 | disposition home or self-care (01) ==
PROVIDERS: PCP Family Medicine; Visit Provider Internal Medicine Gastroenterology
PROC: 0DJD8ZZ Inspection of Lower Intestinal Tract, Via Natural or Artificial Opening Endoscopic (ICD-10-PCS; CPT 45378; principal; 2023-02-24 07:30)
DX: K59.09 Other constipation (principal); K57.30 Diverticulosis of large intestine without perforation or abscess without bleeding; K64.8 Other hemorrhoids; G47.00 Insomnia, unspecified; F41.9 Anxiety disorder, unspecified; D64.9 Anemia, unspecified; F32.A Depression, unspecified; K21.9 Gastro-esophageal reflux disease without esophagitis; E78.00 Pure hypercholesterolemia, unspecified; F12.90 Cannabis use, unspecified, uncomplicated; F03.90 Unspecified dementia, unspecified severity, without behavioral disturbance, psychotic disturbance, mood disturbance, and anxiety; Z79.51 Long term (current) use of inhaled steroids; Z87.891 Personal history of nicotine dependence; Z80.0 Family history of malignant neoplasm of digestive organs; Z82.49 Family history of ischemic heart disease and other diseases of the circulatory system
CPT/HCPCS: 45378; J2704; J7120

== ENCOUNTER 2023-03-09 08:04 | Outpatient (CLI) | payer MEDICARE, SELFPAY ==
--- NOTE | ~2023-03-09 | XR_ITS ---
EXAMINATION: XR small bowel follow through DATE: 03/09/2023 09:00 INDICATION: Adynamic ileus. Constipation. TECHNIQUE: Oral contrast was administered, and a time course of radiographs of the abdomen was obtain ed. Fluoroscopy of the small bowel was performed. Fluoroscopy exposure time was 0.2 minutes. The tota l number of images was 12. COMPARISON: CT abdomen and pelvis 01/31/2023 FINDINGS: There are no dilated loops of bowel. There is no mass or stricture. The terminal ileum is normal. Tra nsit time from the stomach to proximal colon was approximately 15 minutes. IMPRESSION: 1. Normal small bowel series. Reviewed, dictated and finalized at location A. TER OPERATOR
--- NOTE | ~2023-03-09 | CT_ITS ---
EXAMINATION: CTA chest PE protocol DATE: 03/09/2023 11:42 BOXCAR WEIGHER INDICATION: Evaluate for pulmonary embolism. Abdomen pain. Abnormal results of pulmonary function shandra dies. TECHNIQUE: Computed tomographic angiography (CTA) of the chest was performed with 100 mL Omnipaque-35 0 intravenous contrast. The dose-length product was 229.38 mGy-cm. Maximum intensity projection 3D-re constructions of the aorta and other arteries were constructed by the technologist on a separate work station. Automated exposure control and iterative reconstruction technique were employed. COMPARISON: Chest x-ray dated 11/19/2018. FINDINGS: Study is technically adequate. There are small weblike filling defects and segmental and melchor bsegmental pulmonary arteries bilaterally involving the right middle lobe, left upper lobe and right lower lobe, consistent with pulmonary embolism, small thrombus burden, possibly chronic. No thoracic lymphadenopathy. No evidence for aortic aneurysm or dissection. No significant pleural or pericardial effusion. Heart size normal. Status post cholecystectomy. There is a 6.8 cm left renal cyst. There i s dependent atelectasis. No endobronchial lesions. No pneumothorax. IMPRESSION: 1. Bilateral pulmonary embolism, small thrombus burden, possibly at least partially chronic. Dr. Jackson Shaw discussed with Dr. Tashi Grimes MD at 03/09/2023 11:50 BOXCAR WEIGHER. Reviewed, dictated and finalized at location L. AR WEIGHER IMPRESSION: 1. Bilateral pulmonary embolism, small thrombus burden, possibly at least parti ally chronic. Dr. Jackson Shaw discussed with Dr. Tashi Grimes MD at 03/09/2023 11:50 BOXCAR WEIGHER.
[2023-03-09 11:34] LABS: Estimated Glomerular Filt Rate > 60
== END 2023-03-09 08:05 | disposition home or self-care (01) ==
PROVIDERS: PCP Family Medicine; Visit Provider Internal Medicine Gastroenterology
DX: K56.7 Ileus, unspecified (principal); R19.8 Other specified symptoms and signs involving the digestive system and abdomen; I26.99 Other pulmonary embolism without acute cor pulmonale
CPT/HCPCS: 71275; 74250; Q9967

== ENCOUNTER 2023-03-09 12:04 | Emergency (ER) | payer MEDICARE, SELFPAY ==
[2023-03-09] VITALS (9 sets, daily range): BP systolic 126–158; BP diastolic 73–96; PULSE 71–80; RESP 16–29; TEMP 36.6; O2SAT 89–99
--- NOTE | ~2023-03-09 | US_ITS ---
EXAMINATION:US venous doppler LE BI INDICATION:Right lateral thigh pain TECHNIQUE: Multiple grayscale, color flow and Doppler images of the right lower extremity deep venous systems were obtained and reviewed. COMPARISON:Ultrasound dated 04/18/2014 FINDINGS: The common femoral, superficial femoral and popliteal veins demonstrate normal respiratory variation, augmentation and compressibility. Color flow is also seen within the posterior tibial, pe roneal, greater saphenous and profunda veins. IMPRESSION: 1: No lower extremity deep venous thrombosis. Reviewed, dictated and finalized at location L. DRY PROCESS ENGINEER
--- NOTE | 2023-03-09 13:06 | ED.GENADULT ---
HPI - General Adult General Chief complaint: Unspecified Stated complaint: PE Time Seen by Provider: 03/09/23 13:06 Source: patient and family Mode of arrival: ambulatory Limitations: no limitations History of Present Illness HPI narrative: 73 YEARS OLD WHITE FEMALE CAME TO THE EMERGENCY ROOM WITH ACCIDENTAL FINDING OF PULMONARY EMBOLISM IN THE CT SCAN TODAY. PATIENT DENIES ANY CHEST PAIN OR SHORTNESS OF BREATH OR PALPITATION. PATIENT BEEN HAVING ABDOMINAL DISCOMFORT, CONSTIPATION FOR A WHILE, HAD COLONOSCOPY 1 WEEK AGO WITH NORMAL RESULTS, TODAY HAD UPPER GI AND SMALL-BOWEL X-RAY WHICH SHOWED POSSIBLE PULMONARY EMBOLISM AND DR. LOBATO WAS ADVISED BY THE RADIOLOGIST TO GET CTA PULMONARY TO RULE OUT THE POSSIBILITY OF PULMONARY EMBOLISM. CTA SHOWED BILATERAL PULMONARY EMBOLISM, SMALL THROMBUS BURDEN, POSSIBLY AT LEAST PARTIALLY CHRONIC. PATIENT REPORT COVID INFECTION TWICE IN A ROW WITHIN 3 MONTHS APART LAST 1 WAS 2022 Related Data Home Medications Medication Instructions Recorded Confirmed albuterol sulfate 90 mcg/actuation 2 puff inhalation Q4-6H PRN 06/21/22 02/21/23 aerosol inhaler Shortness Of Breath acetaminophen-calcium carbonat 500 2 tablet PO PRN PRN Pain 02/21/23 02/21/23 mg-250 mg tablet buspirone 15 mg tablet 15 mg PO DAILY 02/21/23 02/21/23 clonazepam 1 mg tablet 1 mg PO HS insomnia 02/21/23 02/21/23 Allergies Allergy/AdvReac Type Severity Reaction Status Date / Time No Known Allergies Allergy Verified 03/09/23 12:22 Review of Systems Review of Systems: All systems reviewed & are unremarkable except as noted in HPI and below PMFSH Past Medical History Medical History Abnormal lung scan Acute insomnia Allergic rhinitis, seasonal Anxiety Arthritis Bacterial vaginosis Blood clotting disorder Bowel trouble Broken wrist Cataract (lens) fragments in eye following cataract surgery, bilateral COVID-19 Dementia Depression Diverticulitis GERD (gastroesophageal reflux disease) 6, not currently Hematuria Hemorrhoids Herniated disc High cholesterol History of anemia History of migraine headaches Kidney disease Mammogram abnormal Meniscus degeneration Normal colonoscopy Renal cyst RLS (restless legs syndrome) Screening for lipid disorders Stroke Suicide attempt Surgical History Surgical History History of appendectomy Knee joint replacement status Previous back surgery Family History Family History Father Family history of lung disease Depression Family history of malignant neoplasm of gastrointestinal tract Family history of migraine headaches Family history of alcoholism Cancer Mother Family history of heart disease in male family member before age 55 Hypertension Sibling Depression Family history of migraine headaches Cancer Other Family history of mental disorder Social History Social History Smoking packs per day: 1 Smoking cigarettes per day: 20.0 Years smoked: 6 Smoking pack-years: 6.00 Smoking status: Former smoker Tobacco type: cigarettes Second hand tobacco smoke exposure: No Smoking end date: 04/10/75 Alcohol intake: never Substance use: current Substance use type: marijuana Other substance usage details: 1/2 edible gummy for back pain a few times weekly Lack of Transportation: No Current Housing: I Have Housing Concerned About Future Housing: No Difficulty Paying Gas/Electric Bills: No Difficulty Paying for Meds: No Currently Unemployed: No Education: Trade/Vocational Certificate Difficulty w/ Childcare or Family Care: No Living arrangements: with family Gender identity (if verbalized by the patient): Female Spiritual care concerns: No Exam Narrative: GENERAL A
--- NOTE | 2023-03-09 14:04 | ECG_ITS ---
Measurements Intervals [place] Rate: 66 P: 51 AL: 161 QRS: -3 QRSD: 76 T: 28 QT: 391 QTc: 413 Interpretive Statements SINUS RHYTHM BORDERLINE R WAVE PROGRESSION, ANTERIOR LEADS CONSIDER INFERIOR INFARCT, AGE INDETERMINATE ABNORMAL ECG COMPARED TO ECG 11/19/2018 10:12:51 NO SIGNIFICANT CHANGES Electronically Signed On 03-09-2023 14:31:57 TAPERING MACHINE OPERATOR by Robby Choi D.O.
[2023-03-09 14:23] LABS: Basophils Absolute Auto 0.1 K/mm3 (0.0-0.1); Basophils Percent Auto 0.7 % (0.2-1.2); Eosinophils Absolute Auto 0.1 K/mm3 (0-0.3); Eosinophils Percent Auto 1.7 % (0-4.4); Hematocrit 42.9 % (37.0-47.0); Hemoglobin 13.2 g/dL (12.0-15.0); Immature Granulocyte Absolute 0.03 K/mm3 (0.00-0.031); Immature Granulocyte Percent A 0.4 % (0-0.5); Lymphocytes Absolute Auto 1.92 K/mm3 (0.9-3.2); Lymphocytes Percent Auto 26.6 % (18.3-44.2); Mean Corpuscular HGB Conc 30.8 g/dl (32-36); Mean Corpuscular Hemoglobin 26.2 pg (26-34); Mean Corpuscular Volume 85.1 fl (80-100); Mean Platelet Volume 9.3 fl (7.4-10.4); Monocytes Absolute Auto 0.5 K/mm3 (0.1-0.6); Monocytes Percent Auto 7.1 % (2.6-8.5); Neutrophils Absolute Auto 4.6 K/mm3 (1.3-6.7); Neutrophils Percent Auto 63.5 % (45.5-73.1); Platelet Count Result 176 k/mm3 (150-375); Red Blood Count 5.04 M/mm3 (4.2-5.4); Red Cell Distribution Width 14.4 % (11.5-14.5); White Blood Count 7.2 K/mm3 (4.5-10.0)
[2023-03-09 14:33] LABS: Alanine Aminotransferase 18 U/L (6-35); Albumin Level 3.9 g/dL (3.5-5.1); Alkaline Phosphatase 65 U/L (38-126); Anion Gap 7 mmol/L (8-16); Aspartate Amino Transferase 22 U/L (14-36); Bilirubin,Total 0.6 mg/dL (0.2-1.3); Blood Urea Nitrogen 13 mg/dL (7-17); Calcium 8.6 mg/dL (8.4-10.2); Carbon Dioxide 31 mmol/L (22-30); Chloride 99 mmol/L (98-107); Estimated CRCL calculation 48 ml/min; Estimated Glomerular Filt Rate > 60; Glucose 93 mg/dL (65-110); Potassium 4.1 mmol/L (3.4-5.0); Sodium 137 mmol/L (137-145)
[2023-03-09] MEDS: ENOXAPARIN 80 MG/0.8 ML SYRINGE 70 MG SUB-Q (14:40)
[2023-03-09 14:45] LABS: Troponin I < 0.012 ng/mL (0.000-0.034)
[2023-03-09 15:42] LABS: Prothrombin Time 13.3 Seconds (11.1-14.7)
[2023-03-09 15:43] LABS: Partial Thromboplastin Time 25.2 SECONDS (22.3-36.8)
== END 2023-03-09 16:58 | disposition home or self-care (01) ==
PROVIDERS: Emergency Provider Emergency Medicine; PCP Family Medicine
DX: I26.99 Other pulmonary embolism without acute cor pulmonale (principal); H59.023 Cataract (lens) fragments in eye following cataract surgery, bilateral; F03.90 Unspecified dementia, unspecified severity, without behavioral disturbance, psychotic disturbance, mood disturbance, and anxiety; E78.00 Pure hypercholesterolemia, unspecified; N28.9 Disorder of kidney and ureter, unspecified; K21.9 Gastro-esophageal reflux disease without esophagitis; M19.90 Unspecified osteoarthritis, unspecified site; G25.81 Restless legs syndrome; F41.9 Anxiety disorder, unspecified; F32.A Depression, unspecified; Z96.659 Presence of unspecified artificial knee joint; Z86.2 Personal history of diseases of the blood and blood-forming organs and certain disorders involving the immune mechanism; Z86.16 Personal history of COVID-19; Z86.73 Personal history of transient ischemic attack (TIA), and cerebral infarction without residual deficits; Z87.891 Personal history of nicotine dependence; R94.31 Abnormal electrocardiogram [ECG] [EKG]
CPT/HCPCS: 36415; 71275; 74250; 80053; 84484; 85025; 85610; 85730; 93005; 93970; 96372; 99284; J1650; Q9967

== ENCOUNTER 2023-07-28 10:57 | Outpatient (CLI) | payer MEDICARE, SELFPAY ==
[2023-07-28 11:58] LABS: Alanine Aminotransferase 14 U/L (6-35); Albumin Level 4.5 g/dL (3.5-5.1); Alkaline Phosphatase 56 U/L (38-126); Anion Gap 6 mmol/L (4-12); Aspartate Amino Transferase 22 U/L (14-36); Bilirubin,Total 0.6 mg/dL (0.2-1.3); Blood Urea Nitrogen 14 mg/dL (7-17); Carbon Dioxide 27 mmol/L (22-30); Chloride 107 mmol/L (98-107); Estimated Glomerular Filt Rate > 60; Glucose 113 mg/dL (65-110); Sodium 140 mmol/L (137-145)
== END 2023-07-28 10:58 | disposition home or self-care (01) ==
PROVIDERS: PCP Nurse Practitioner; Visit Provider Nurse Practitioner
DX: E03.9 Hypothyroidism, unspecified (principal); Z79.899 Other long term (current) drug therapy
CPT/HCPCS: 36415; 80053; 84443

== ENCOUNTER 2024-06-21 10:11 | Emergency (ER) | payer MEDICARE, BC, SELFPAY ==
--- NOTE | ~2024-06-21 | XR_ITS ---
CHEST RADIOGRAPH, PA AND LATERAL CLINICAL HISTORY: cp X TODAY . COMPARISON: 11/19/2018 TECHNIQUE: PA and lateral views of the chest. FINDINGS The cardiomediastinal silhouette is unremarkable. The lungs are clear. Visualized osseous structures and soft tissues are unremarkable. IMPRESSION: No focal infiltrate or effusion. Reviewed, dictated and finalized at location A.
--- NOTE | ~2024-06-21 | CT_ITS ---
EXAMINATION: CTA chest PE protocol DATE: 06/21/2024 13:41 CDT INDICATION: Chest pain TECHNIQUE: Computed tomographic angiography (CTA) of the chest was performed with 100 mL Omnipaque-35 0 intravenous contrast. The dose-length product was 214.73 mGy-cm. Maximum intensity projection 3D-re constructions of the aorta and other arteries were constructed by the technologist on a separate work station. COMPARISON: 03/09/2023 FINDINGS/OBSERVATIONS: PULMONARY ARTERIES: No filling defect is identified within the main or proximal pulmonary artery. Chronic filling defect within the posterior basal segmental branch of the right lower lobe pulmonary artery, unchanged from 2022. No new peripheral filling defects are appreciated. The main pulmonary artery is not enlarged. THORACIC AORTA: No aneurysmal dilatation or dissection is present. The great vessels are intact LUNGS: Trace bibasilar atelectasis. MEDIASTINUM: No morphologically suspicious or pathologically enlarged lymph nodes are identified with in the mediastinum or bilateral axilla. BONES OF THE CHEST: No acute fracture. No significant degenerative disease. No lytic or blastic lesions. HEART: The heart is enlarged, unchanged, without pericardial effusion. WITHIN THE UPPER ABDOMEN: A small hiatal hernia is identified. The gallbladder is surgically absent. Large focus of fluid attenuation within the upper pole of the left kidney, consistent with a simple c yst, unchanged from 2022. IMPRESSION: No acute or subacute pulmonary embolus. Chronic nonocclusive pulmonary embolus within the right lower lobe subsegmental branch, unchanged fro 2022. No thoracic aortic dissection. Trace bibasilar atelectasis. Reviewed, dictated and finalized at location A. IMPRESSION: No acute or subacute pulmonary embolus. Chronic nonocclusive pulmonary embolus within the right lower lobe subsegmental branch, unchanged from 2022. No thoracic aortic dissection. Trace bibasilar atelectasis.
--- NOTE | 2024-06-21 10:13 | ECG_ITS ---
Test Date: 2024-06-21 10:23:17 Measurements Intervals [place] Rate: 64 P: 56 ID: [id number] QRS: -8 QRSD: 71 T: 30 QT: 384 QTc: 398 Interpretive Statements SINUS RHYTHM POSSIBLE ANTERIOR MYOCARDIAL INFARCTION , OF INDETERMINATE AGE Electronically Signed On 06-23-2024 13:47:26 CDT by Barron Holbrook D.O
[2024-06-21 10:17] VITALS: BP 152/80; PULSE 65; RESP 16; TEMP 36.3; O2SAT 99
--- OUTSIDE RECORDS SUMMARY | 2024-06-21 10:49 | XMS_ITS | Data Portability ---
Author Organization [facility] Address [address] [place] [address] Care Team Providers Care Pharmaceutical Service Representative Name Role Phone VANI FULLER Primary Care Provider [phone] ALISIA HUTSON Primary Care Provider [phone] Assessment Encounter Date Assessment Date Assessment LastModified by Organization Details LastModified Time 09/08/2020 09/08/2020 Annual gynecological exam performed. Patient will come back in a year unless there are new symptoms. Not available 09/08/2020 16:35:40 Plan of Treatment Reminders Order Date Submit Date Provider Last Modified By Organization Details Last Modified Time Details Appointments None recorded . Lab urinalys is, dipstick 2022 023 [email or web address] [address], [address], [place], [address], 3 18:26:03 Referral None recorded . Procedures None recorded . Surgeries None recorded . Imaging US, breast, unilater al 2020 021 ELI [facility], [address] [facility], [place], [address], 15:51:43 MAMMO, diagnost ic, digital, bilatera l 2020 021 juan [facility], [address] [facility], [place], [address], 15:38:07 DEXA, axial skeleton + vertebra l fracture assessme nt 2020 [facility], [address], [place], [address], 2 16:46:34 Medication Orders clotrima libane-bet amethaso ne 1 %-0.05 % topical cream [address] [id number], [address], [place], [place], [id number], 4 12:37:20 fluconaz ole 150 mg tablet [address] [facility] #[id number], [address], [place], [place], [id number], 4 12:37:26 Cipro 500 mg tablet [address] [facility][id number], [address], [place], [place], [id number], 3 18:26:03 nystatin -triamci nolone 100,000 unit/gra m-0.1 % topical ointment [address] [facility]28373, [address], [place], [place], [id number], 3 18:26:03 nystatin -triamci nolone 100,000 unit/gra m-0.1 % topical ointment [address] [facility] #35482, [address], [place], [place], [id number], 3 15:46:31 Patient TargetsNo targets recorded. Patient InstructionsNo instructions recorded. Reason for Referral None Reported. Results Created Date Observation Date Name Description Value Unit Range Abnormal Flag Note LastModifiedBy Organization Detail LastModifiedTime 06/17/1906/16/2022 CULTU RE: URINE result report SEE RESULT S BELOW Test: Cultu re: Urine Speci men Sourc e: Urine Voide d Speci men Type: Urine Speci men Date: 023 4:58 PM Resul t Date: 2022 6:20 AM Resul t Statu s: Final resul t Abnor mal: No Resul ting Lab: [facility] [address] [facility] [address] Tel: CULTU RE ----- ----- ----- --- No growt h in 1 day (dete ction level of 10,00 0 colon ies / ml.) Not Available [facility] (Lab) [address] , [place], [address], 06/18/2022 07:25:01 06/17/19 23 06/16/2022 urina lysis , dipst ick Leukocytes TRACE Not Available [facility] [address], [place], [address], 06/16/2022 17:06:29 06/17/19 23 06/16/2022 urina lysis , dipst ick Blood +++ Not Available [facility] [address], [place], [address], 06/16/2022 17:06:29 06/30/19 24 06/30/2023 VAGIN ITIS/ VAGIN OSIS, DNA PROBE angie sp. detection, direct probe Negati ve negati ve Not Available [facility] (Lab) [address] [place], [address], 07/03/2023 09:45:04 06/30/19 24 06/30/2023 VAGIN ITIS/ VAGIN OSIS, DNA PROBE gardnerella vag. detection, direct probe Negati ve negati ve Not Available [facility] (Lab) [address] [place], [address], 07/03/2023 09:45:04 06/30/19 24 06/30/2023 VAGIN ITIS/ VAGIN OSIS, DNA PROBE trichomonas vag. detection, direct probe Negati ve negati ve Not Available [facility] (Lab) [address], [place], [address], 07/03/2023 09:45:04 09/15/19 21 09/14/2020 US, breas t, unila teral No observ ation record ed. [facility] [address] [place] [address], [place], [address], 09/17/2020 16:14:13 09/15/19 21 09/14/2020 MAMMO , diagn ostic , digit al, bilat eral No observ ation record ed. [facility] [address] [place] [address], [place], [address], 09/17/2020 16:21:20 Result Notes None recorded. Problems Name Problem SNOMED Code Status Onset Date Resolution Date Notes Provider Name and Address Organization Details Recorded Time Screenin g for malignan t neoplasm of rectum Completed 201209/08/2020 Screenin g for malignan t neoplasm s of the rectum;P ractice ID: 0001 Laurel Skelton [facility] 16:38:38 Prolapse of female genital organs 62401823 Completed 201209/08/2020 Other specifie d genital prolapse ;Practic e ID: 0001 Laurel Skelton [facility] 16:38:30 Uterine prolapse [id number] Completed 201209/08/2020 Uterine prolapse without mention of vaginal wall prolapse ;Practic e ID: 0001 Laurel Skelton [facility] 16:38:47 Right lower quadrant pain [id number] Completed 201209/08/2020 Abdomina l pain, right lower quadrant ;Practic e ID: 0001 Laurel Skelton [facility] 16:38:33 Evaluati on finding Completed 201709/08/2020 Hematuri a, unspecif ied;Prac carlotta ID: 0001 Laurel Skelton [facility] 16:38:[address] Concept Completed 201709/08/2020 Encounte r for general adult medical exam w abnormal findings ;Practic e ID: 0001 Laurel Skelton [facility] 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 16:38:40 Screenin g for malignan t neoplasm of cervix Completed 201209/08/2020 Screenin g for malignan t neoplasm s of the cervix;R ecorded Elsewher e: No Locat ion: [facility] S ource: EHR Air Twist Operator quinn: N Practi ce ID: 0001 Reynaldo lable Time: 10:00:00 AM Laurel Skelton [facility] 16:38:36 Adult health examinat ion Completed 201009/08/2020 Routine Medical Exam;Rec orded Elsewher e: No Locat ion: [facility] S ource: EHR Air Twist Operator quinn: N Practi ce ID: 0001 Reynaldo lable Time: 01:00:00 PM Laurel Skelton [facility] 16:38:13 Menopaus al symptom [id number] Completed 201109/08/2020 Menopaus al or female climacte matthias states;R ecorded Elsewher e: No Locat ion: [facility] S ource: EHR Air Twist Operator quinn: N Practi ce ID: 0001 Reynaldo lable Time: 02:00:00 PM Laurel Skelton [facility] 16:38:22 Constipa tion [id number] Completed 201209/08/2020 Constipa tion, unspecif ied;Arnaldo rded Elsewher e: No Locat ion: Lisa hurt [facility] S ource: EHR Air Twist Operator quinn: Y Practi ce ID: 0001 Reynaldo lable Time: 01:45:00 PM Laurel Skelton [facility] 16:38:15 Urinary tract infectio us disease [id number] Completed 201009/08/2020 Urinary Tract Infectio n;Record ed Elsewher e: No Locat ion: Lisa hurt [facility] S ource: EHR Air Twist Operator quinn: N Practi ce ID: 0001 Reynaldo lable Time: 02:15:00 PM Laurel Skelton [facility] 16:38:45 Postoper ative follow-u p visit Completed 201209/08/2020 Follow-u p examinat ion, followin g unspecif ied surgery; Recorded Elsewher e: No Locat ion: Lisa hurt [facility] S ource: EHR Air Twist Operator quinn: N Practi ce ID: 0001 Reynaldo lable Time: 02:00:00 PM Laurel Skelton [facility] 16:38:26 Microsco pic hematuri a [id number] Completed 201009/08/2020 MICROSCO PIC HEMATURI A;Record ed Elsewher e: No Locat ion: Lisa hurt [facility] S ource: EHR Air Twist Operator quinn: N Practi ce ID: 0001 Reynaldo lable Time: 02:15:00 PM Laurel Skelton [facility] 16:38:24 Vaginiti s and vulvovag initis Completed 201009/08/2020 Vaginiti s;Record ed Elsewher e: No Locat ion: Lisa hurt [facility] S ource: EHR Air Twist Operator quinn: N Practi ce ID: 0001 Reynaldo lable Time: 02:15:00 PM [facility]urel [facility] 16:38:48 Speciali lm medical examinat ion Completed 201209/08/2020 Gynecolo gical Examinat ion;Arnaldo rded Elsewher e: No Locat ion: Lisa hurt [facility] S ource: EHR Air Twist Operator quinn: N Practi ce ID: 0001 Reynaldo lable Time: 10:00:00 AM Laurel [facility] 16:38:42 Breast lump [id number] Active 2010 Lump or mass in breast;P ractice ID: 0001 Not Available [facility] 0 14:46:41 Ill-defi vanna intestin al infectio n Completed 201109/08/2020 No Show Fee;Prac carlotta ID: 0001 Laurel [facility] 16:38:18 Problem Notes None recorded. Procedures Surgical History Date Name Laterality Status Provider Name and Address Organization Details Recorded Time 09/09/19 21 Date of Last Pap Smear completed [facility] 09/08/2020 16:41:50 08/02/19 18 Date of Last Mammogram completed [facility] 09/08/2020 16:42:15 04/10/19 13 Total Hysterectomy completed [facility] 09/08/2020 16:50:13 04/10/19 11 [facility] 09/08/2020 16:48:14 04/10/19 07 repair of stress incontinence by suprapubic sling completed [facility] 09/08/2020 16:48:31 04/10/19 05 Carpal tunnel surgery completed [facility] 09/08/2020 16:49:02 04/10/18 97 repair of stress incontinence by suprapubic sling completed [facility] 09/08/2020 16:49:23 04/10/18 66 Tonsillectomy completed [facility] 09/08/2020 16:48:03 04/10/18 62 appendectomy completed [facility] 09/08/2020 16:48:40 procedure on back completed [facility] 09/08/2020 16:47:51 extraction of cataract completed [facility] 06/30/2023 12:20:44 Imaging Results Imaging Date Name Status LastModified by Organiz ation Details LastModified Time 09/14/2020 US, breast, unilateral completed [facility] [place] [address] [facility], [place], [address], 09/17/2020 16:14:13 09/14/2020 MAMMO, diagnostic, digital, bilateral [facility] [place] [address] [facility], [place], [address], 09/17/2020 16:21:20 Procedure Notes None recorded. Medical Equipment None Reported. Allergies Allergen ID Allergen Name Allergen Category Reaction Reaction Severity Criticality Documentation Date Start Date Code Code System Note Provider Name and Address Organization Details Recorded Time 95125 levofloxa андрей medicatio n Not available Not available Not available 03/27/2020 03030 RxNorm React ion: tendo ns hurt; Comme nt: [facility]at [facility] Agent : Levaq uin; Laurel [facility] 3 15:28:11 Medications Name Sig Start Date Stop Date Status Note LastModified by Organization Details LastModified Time Miralax 17 gram/dose oral powder take by oral route every day mixed with 8 oz. water, juice, soda, coffee or tea active Prescrib ed Elsewher e: Yes Loca tion: Lisa hurt [facility] odify By: adan fine DateTime : 12/15/19 13 01:45:00 PM Not Available Not Available Not Available ropinirol e 1 mg tablet take 1 tablet by oral route 3 times every day active Prescrib ed Elsewher e: Yes Loca tion: Lisa hurt [facility] odify By: janel link DateTime : 01/05/20 11 02:15:00 PM Not Available Not Available Not Available trazodone 50 mg tablet take 1 tablet by oral route 3 times every day after meals active Prescrib ed Elsewher e: Yes Loca tion: Lisa hurt [facility] odify By: adan abrahamuntvero DateTime : 12/15/19 13 01:45:00 PM Not Available Not Available Not Available fluconazo le 150 mg tablet Take 1 tablet every other day by oral route. 2023 active Not Available Not Available Not Avai lable clonazepa m 0.5 mg tablet take 1 tablet by oral route 3 times every day active Prescrib ed Elsewher e: Yes Loca tion: Lisa hurt [facility] odify By: blessing fine DateTime : 06/08/19 12 02:00:00 PM Not Available Not Available Not Available BuSpar 5 mg tablet take 1 tablet by oral route 3 times every day 09/08 completed Prescrib ed Elsewher e: Yes Loca tion: Lisa hurt [facility] odify By: blessing fine DateTime : 06/08/19 12 02:00:00 PM Not Available Not Available Not Available temazepam 7.5 mg capsule take 1 capsule by oral route every day at bedtime as needed 09/08 completed Prescrib ed Elsewher e: Yes Loca tion: Lisa hurt [facility] odify By: blessing fine DateTime : 06/08/19 12 02:00:00 PM Not Available Not Available Not Available Macrobid 100 mg capsule take 1 capsule (100MG) by oral route every 12 hours with food 2011 completed Prescrib ed Elsewher e: No Locat ion: Lisa hurt [facility] odify By: blessing fine DateTime : 04/20/19 12 03:30:20 PM Not Available Not Available Not Available nystatin- triamcino lone 100,000 unit/gram -0.1 % topical ointment APPLY TO THE AFFECTED AREA(S) BY TOPICAL ROUTE 2 TIMES PER DAY 2022 active Not Available Not Available Not Avai lable FiberCon 625 mg tablet 06/15 completed Prescrib ed Elsewher e: Yes Loca tion: Lisa hurt [facility] odify By: adan fine DateTime : 12/15/19 13 01:45:00 PM Not Available Not Available Not Available Metrogel Vaginal 0.75 % (37.5 mg/5 gram) insert 1 applicat orful (37.5MG) by vaginal route every day at bedtime 09/08 completed Prescrib ed Elsewher e: No Locat ion: Lisa hurt [facility] odify By: elizabeth yee DateTime : 01/29/20 13 10:00:00 AM Not Available Not Available Not Available Flagyl 500 mg tablet take 1 tablet (500MG) by oral route every 12 hours 01/02 completed Prescrib ed Elsewher e: No Locat ion: Lisa hurt [facility] odify By: ton yee DateTime : 12/27/19 13 03:55:25 PM Not Available Not Available Not Available Cipro 500 mg tablet active Not Available Not Available No t Available clotrimaz ole-betam ethasone 1 %-0.05 % topical cream APPLY TO THE AFFECTED AND SURROUND ING AREAS OF SKIN BY TOPICAL ROUTE 2 TIMES PER DAY IN THE MORNING AND EVENING FOR 2 WEEKS 2023 active Not Available Not Available Not Avai lable Effexor XR 150 mg capsule,e xtended release take 1 capsule (150MG) by oral route every day active Prescrib ed Elsewher e: Yes Loca tion: Lisa hurt [facility] odify By: janel link DateTime : 01/05/20 11 02:15:00 PM Not Available Not Available Not Available Transderm -Scop 1 mg over 3 days transderm al patch apply 1 patch by transder mal route 09/08 completed Prescrib ed Elsewher e: No Locat ion: Lisa hurt [facility] odify By: tgingric h Encoun ter DateTime : 01/29/20 13 10:00:00 AM Not Available Not Available Not Available Bactrim DS 800 mg-160 mg tablet take 1 tablet by oral route every 12 hours 2022 active Not Available Not Available Not Avai lable Diovan 40 mg tablet take 2 tablet by oral route every day 09/08 completed Prescrib ed Elsewher e: Yes Loca tion: Lisa hurt [facility] odify By: janel Peterson r DateTime : 01/05/20 11 02:15:00 PM Not Available Not Available Not Available Prempro 0.3 mg-1.5 mg tablet take 1 tablet by oral route every day 2011 completed Prescrib ed Elsewher e: No Locat ion: Lisa hurt [facility] odify By: isidro Patiño ntvero DateTime : 06/08/19 12 02:00:00 PM Not Available Not Available Not Available ProAir HFA 90 mcg/actua tion aerosol inhaler inhale 2 puff by inhalati on route every 4 - 6 hours as needed 06/15 completed Prescrib ed Elsewher e: Yes Loca tion: Lisa hurt [facility] odify By: adan fine DateTime : 02/07/20 13 02:00:00 PM Not Available Not Available Not Available Seroquel 50 mg tablet take 1 tablet by oral route 2 times every day 09/08 completed Prescrib ed Elsewher e: Yes Loca tion: Lisa hurt [facility] odify By: janel Peterson r DateTime : 01/05/20 11 02:15:00 PM Not Available Not Available Not Available Tirosint 13 mcg capsule take 1 capsule by oral route every day 09/08 completed Prescrib ed Elsewher e: Yes Loca tion: Lisa hurt [facility] odify By: blessing abrahamuntvero DateTime : 06/08/19 12 02:00:00 PM Not Available Not Available Not Available Xarelto 10 mg tablet take 1 tablet by oral route every day 09/08 completed Prescrib ed Elsewher e: Yes Loca tion: [facility] odify By: adan fine DateTime : 03/28/20 13 09:00:00 AM Not Available Not Available Not Available Linzess 145 mcg capsule take 1 capsule (145MCG) by oral route every day on an empty stomach at least 30 minutes before 1st meal of the day swallowi ng whole. Do not break, chew and/or open. 2012 active Prescrib ed Elsew e: No Locat ion: [facility] odify By: elizabeth cristian Mirella yee DateTime : 12/15/19 13 01:45:00 PM Not Available Not Available Not Available Eliquis 2.5 mg tablet Take 1 tablet twice a day by oral route. active Not Available Not Available No t Available Vitals Date Recorded Body height Body mass index (BMI) Body weight Systolic blood pressure Diastolic blood pressure Provider Name and Address Organization Details Last Updated DateTime 09/08/2020 152.4 cm 29.3 kg/m2 18003.86 g 152 mm[Hg] 88 mm[Hg] Laurel Skelton [facility] 16:36:45 Date Recorded Systolic blood pressure Diastolic blood pressure Provider Name and Address Organization Details Last Updated DateTime 09/08/2020 142 mm[Hg] 76 mm[Hg] Maria Isabel Smith [facility] [address], [place], [address] 09/10/2020 09:47:54 Date Recorded Body weight Provider Name an d Address Organization Details Last Updated DateTime 06/15/2022 92231.57 g Laurel Manriquez [facility] 06/15/2022 15:28:03 Date Recorded Systolic blood pressure Diastolic blood pressure Provider Name and Address Organization Details Last Updated DateTime 06/15/2022 132 mm[Hg] 79 mm[Hg] Maria Isabel Smith [facility] [address], [place], [address], [facility] 06/15/2022 15:38:27 Date Recorded Body height Body mass index (BMI) Body weight Systolic blood pressure Diastolic blood pressure Provider Name and Address Organization Details Last Updated DateTime 06/16/2022 152.4 cm 30.5 kg/m2 01754.41 g 131 mm[Hg] 85 mm[Hg] Dary Mays [facility] 16:48:20 Date Recorded Body weight Systolic blood pressure Diastolic blood pressure Provider Name and Address Organization Details Last Updated DateTime 06/30/2023 56251.19 g 131 mm[Hg] 81 mm[Hg] Laurel Manriquez [facility] 06/30/2023 12:19:06 Social History Question Answer Notes LastModified by Organizat ion Details LastModified Time Tobacco Smoking Status Never Smoker [facility] 09/08/2020 16:47:18 What Is Your Level Of Alcohol Consumption? Occasional Information not available 09/08/2020 Are You Blind Or Do You Have Difficulty Seeing? No Information not available 09/08/2020 What Is Your Level Of Caffeine Consumption? Moderate Information not available 09/08/2020 Are You Deaf Or Do You Have Serious Difficulty Hearing? No Information not available 09/08/2020 What Type Of Diet Are You Following? REGULAR Information not available 09/08/2020 Do You Use Your Seat Belt Or Car Seat Routinely? Yes Information not available 09/08/2020 Do You Have Smoke And Carbon Monoxide Detectors In Your Home? Yes Information not available 09/08/2020 Do You Feel Stressed (tense, Restless, Nervous, Or Anxious, Or Unable To Sleep At Night)? [id number] Information not available 09/08/2020 Do You Use Any Illicit Or Recreational Drugs? No Information not available 09/08/2020 Do You Use Sunscreen Routinely? Yes Information not available 09/08/2020 Sex: Unknown Functional Status Question Answer Note LastModified by Organizat ion Details LastModified Time Do you have difficulty walking or climbing stairs? No Information not available 06/15/2022 Are you able to walk? YESWOREST Information not available 09/08/2020 Are you able to care for yourself? Yes Information not available 06/15/2022 Do you have difficulty dressing or bathing? No Information not available 06/15/2022 What is your exercise level? Occasional Information not available 09/08/2020 Mental Status None recorded. Family History Relationship Description Onset Age of this Age Resolved Age Notes LastModified by Organization Details LastModified Time Brother Anxiety disorder Not available 2020 16:44:29 Brother Depressive disorder Not available 2020 16:44:54 Father Anxiety disorder Not available 2020 16:44:35 Father Depressive disorder Not available 2020 16:44:54 Father Malignant tumor of colon Not available 2020 16:45:01 Mother Congenital heart disease Not available 2020 16:45:34 Mother Hypertensive disorder Not available 2020 16:45:41 Paternal Aunt Anxiety disorder Not available 2020 16:45:53 Paternal Aunt Depressive disorder Not available 2020 16:45:58 Paternal Grandfather Anxiety disorder Not available 2020 16:46:09 Paternal Grandfather Depressive disorder Not available 2020 16:46:14 Paternal Uncle Malignant tumor of lung Not available 2020 16:46:26 Sister Multiple sclerosis Not available 2020 16:46:40 Sister Anxiety disorder Not available 2020 16:46:47 Sister Depressive disorder Not available 2020 16:46:52 Medical History Condition Response Anxiety Disorder Y Other Y Anemia Y Depression/ depression Y Hematologic disorders Y Hypertension Y GI Problems Y Asthma Y Gynecological History Statement/Question Response If Post Menopausal, Age at Menopause 47 Date of Last Mammogram 08/01/2017 Sexually Active? Y STIs/STDs N Menses Monthly N Age of first menstrual cycle 15 HPV Vaccine N Date of Last Pap Smear 09/08/2020 Sexual Problems? N Current Control Method Hysterectom y LMP Unknown Obstetrics History GPAL:G 6 P 4 0 2 4 Type Value Full Term 4 Spontaneous 2 Living 4 Total 6 Past Encounters Encounter ID Performer Location Encounter Start Date Encounter Closed Date Diagnosis/Indication Diagnosis SNOMED-CT Code Diagnosis ICD10 Code Diagnosis Note [id number] Maria Isabel Smith [facility] [address] [address] 09/08/2020 16:06:27 09/09/2020 14:59:58 Gynecologic examination 31332264 Z01.419 Take Calcium with Vitamin D 12-1500mg daily. Do monthly self breast exams. It is advised to get annual flu shot in the fall and she could obtain at [facility] or [facility] clinic. If you haven't received the Tdap vaccine in the last 10 years you should obtain one as well. Have mammogram yearly, bone density every 2-3 years and colonoscop y every 5-10 years depending on findings and history. Engage in daily exercise of low impact aerobic exercise 45-60 minutes 4-5 times weekly. Avoid tobacco and illicit drugs as well as using moderation with alcohol intake less than 1-2 8 oz beverages daily. This lifestyle behavior pattern will lead to less health conditions and longer life span. If BMI greater than 25 weight watchers or dietary consult advised. Questions have been answered. Patient appears to understand instructio ns, but if you have any further questions call or respond to this email USPSTF recommends against screening for cervical cancer in women older than 65yo who have had adequate prior screening & are not otherwise at high risk for cervical cancer. Mammo ordered Dexa ordered Postmenopa usal osteopenia [id number] M85.80 Started medication for osteporosi s by PCP. Will let us know name of medication . Mastodynia of left breast [id number] N64.4 N63.20 Will schedule. [id number] [facility] [address] [address] 06/15/2022 15:16:19 06/15/2022 16:49:46 Pain in pelvis [id number] R10.2 Wants to discuss previous Mesh surgery & if this contribute s to any issues she is havingWe talked about scar tissue/adh esions from all her other abdominal surgeries. Exam there is thin pieces of skin felt in vaginal canal which she reports is tender.Hx of hysterecto my for uterine prolapseHx of vaginal mesh & bladder sling Advised patient that I am uncertain if her previous surgeries regarding mesh placement etc or possible adhesions from multiple abdominal/ pelvic surgeries could have anything to do with what is felt on exam or the intermitte nt menstrual like cramps she will have occasional ly.She does have a Hx of diverticul itis and other GI issues which could also contribute to these sx's as well. Will have her make MD consult to discuss with TUNNEL HEADING SUPERVISOR Surgeon for their input/arnaldo mmendation s.Agreeabl e to plan of care. Time spent in visit is a total of 30 mins with at least 50% of visit consisting of counseling and review of plan of care. Vulval irritation 215807 003 N90.89 Might benefit from some topical estrogen cream in areas of inner fold of labia majora but she states she had a blood clot in her lungs in past that was an incidental finding during a hospital visit for another issue. We will start with a small amt of mycolog used sparingly to avoid thinning skin to help decrease inflammati on. Stop wearing pads. Wear cotton clothing. VCG sheet reviewed. [id number] Isrrael Butts MD [facility] [address] [address] 06/16/2022 16:38:58 06/17/2022 10:43:02 Blood in urine 06238943 R31.9 Vulval irritation 939811 003 N90.89 Pain in pelvis 06079448 R10.2 This patient is a 72-year-ol d female presents for pelvic discomfort . She has pelvic ache. Her situation is complicate d. She appears to have urinary tract infection. She has a history of a vaginal mesh. She has history of pelvic organ prolapse. She has history of bilateral joint osteoarthr itis. She has history of a fractured tailbon.e discussed her history for more than 40 minutes, talked about her symptoms, talked about solutions and evaluation s. Ultimately we agreed to treat her urinary tract infection and observe her concerns. If she wanted to pursue evaluation of the pelvic mesh in pelvic pain she would likely need to see a urogynecol ogist. History of genital prolapse [id number] Z87.42 Urinary tr act infectious disease 69081034 N39.0 [id number] Isrrael Butts MD [facility] [address] [address] 06/30/2023 11:52:13 06/30/2023 13:04:02 Vulvovaginitis 60344759 N76.0 73-year-ol d female presents for vulvar irritation and discharge. She reports odor. She reports white discharge. She is some itching and inflammati on of the vulva. Exam revealed some vulvar erythema. No lesions. No evidence of lichen sclerosus. Swabs were taken. We agreed to treat for vulvovagin itis that is fungal in nature. Treated with oral antifungal and topical steroid/an tifungal for the vulva. Spent more than 20 minutes face-to-fa ce. More than 50% was counseling . Health Concerns Section Related Observation LastModified by Organization Detai ls LastModified Time None Recorded Concern Status LastModified by Organization Details LastModified Time None Recorded Advance Directives Directive None Recorded Payers Encounter Date Sequence Insurance Name Policy Number Policy Marte Covered Member ID Marte Member ID Guarantor Name 09/08/2020 2 [facility] [place] - DOS PRIOR TO 2024 (PPO) Az Butler [id number] ALBRECHT Zena Foydctania 09/08/2020 1 [employer] (MEDICARE REPLACEMENT/ADV ANTAGE - PPO) Katherine Butler [id number] Zena Foydctania 06/15/2022 2 [facility] [place] - DOS PRIOR TO 2024 (PPO) Az Butler [id number] Zena Foydctania 06/15/2022 1 [employer] (MEDICARE REPLACEMENT/ADV ANTAGE - PPO) Katherine Foymire [id number] Zena Foydctania 06/16/2022 2 [facility] [place] - DOS PRIOR TO 2024 (PPO) Az Butler [id number] ALBRECHT Zena Foydctania 06/16/2022 1 [employer] (MEDICARE REPLACEMENT/ADV ANTAGE - PPO) Katherine Butler [id number] Zena Butler 06/30/2023 2 [facility] [place] - DOS PRIOR TO 2024 (PPO) Az Mills Carrie [id number] ALBRECHT Zena Carrie 06/30/2023 1 [employer] (MEDICARE REPLACEMENT/ADV ANTAGE - PPO) Katherine Cutler Carrie [id number] Zena Butler Notes Date Note Type Note Provider Name and Address Organization Details Recorded Time 09/08/2020 text/html 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 Post-MenopausalRepor kamille bypatient.Menopausal Symptoms:no menopausal symptoms; normal vaginal lubrication Vaginal Bleeding:history of menopause having occurred; no history of post menopausal bleeding Urinary Symptoms:no hematuria; no incontinence; no nocturia; no urinary frequency Vulva:no genital lesion; no vulvar atrophy Vagina:normal vaginal discharge; no vaginal atrophy Breast:no breast lump; no nipple discharge; no breast pain Sexual Complaints:no sexual complaints Psychological Symptoms:no depression; no anxiety Preventive Measures:encourage regular mammograms starting age 40; encourage self breast examination; encourage regular exercise; encourage no tobacco use; needs to schedule mammogram (Having some left breast tenderness for almost 3mos.); history of recent colonoscopy Maria Isabel Smith, [facility]- [address], [place], [address], [facility] 09/10/2020 09:52:14 06/15/2022 text/html Patient is a 72y o white female post-menopause with Hx of hysterectomy for uterine prolapse & Hx of bladder sling. She is here to be evaluated to see if these issue could be contributing to the random lower pelvic/back menstrual like cramps she will have; also feels she might have a lot of scar tissue or adhesions from multiple abd surgeries that could contribute to bowel function (i.e constipation); She does have a Hx of diverticulitis. Pain is weekly.Does not last longer than a few minutes.No urinary/GI sx's seem to accompany this discomfort.Does not take anything for this pain.Present for at least the last 6mos.Not routinely SA-penetration.Monog amous. In addition, she feels the inner portions of both labia majora skin has been getting irritated.She has recently stopped wearing a daily panty liner and lose cotton close; with applications of neosporin. Feels it's started to make a difference.She Would like to know what else she could be doing for this area. Neg pain of abd/flankNeg urinary sx'sNeg GI sx'sNeg N/V/F/C/DNeg Vag d/c, odor, irritation, itching Maria Isabel Smith, [facility] [address], [place], [address], [facility] 06/15/2022 16:18:08 06/16/2022 text/html This patient is a 72-year-old female presents for pelvic discomfort. She has pelvic ache. Her situation is complicated. She appears to have urinary tract infection. She has a history of a vaginal mesh. She has history of pelvic organ prolapse. She has history of bilateral joint osteoarthritis. She has history of a fractured tailbon.e discussed her history for more than 40 minutes, talked about her symptoms, talked about solutions and evaluations. Ultimately we agreed to treat her urinary tract infection and observe her concerns. If she wanted to pursue evaluation of the pelvic mesh in pelvic pain she would likely need to see a urogynecologist. Isrrael Butts MD [address], [place], [address], [facility] 06/16/2022 18:26:25 06/30/2023 text/html 73-year-old fema alexander presents for vulvar irritation and discharge. She reports odor. She reports white discharge. She is some itching and inflammation of the vulva. Exam revealed some vulvar erythema. No lesions. No evidence of lichen sclerosus. Swabs were taken. We agreed to treat for vulvovaginitis that is fungal in nature. Treated with oral antifungal and topical steroid/antifungal for the vulva. Spent more than 20 minutes [id number]. More than 50% was counseling. Isrrael Butts MD [address], [place], [address], [facility] 06/30/2023 12:58:41 OBGyn Episode Ob Episode Information Episode Created Date Number of Fetuses Patient Bloodtype Patient rh Status Prepregnancy Weight lbs Domestic Partner Domestic Partner Phone Father Name Parts Representative Status 09/09/19 21 1 CLOSED Fetus Data First Name Last Name Admitted to NICU Weight (g) Sex Living Outcome Pediatric Complications Fetus ID Race Codes Race Delivery Type , Spontane ous [id number] Juan Calculation Initial Juan Date Initial Exam Date Initial Exam Provider Initial Ultrasound Date Last Menstrual Period Date Ultra Sound Weeks Gestation 0 Eighteen To Twenty Week Juan Update Ultra Sound Date Fundal Height At Umbil Quickening Date Ultra Sound Latest Weeks Gestation Final Juan Confirmed By Final Juan Confirmed Date Final Juan Date Ultra Sound Latest Days Gestation 0 0 Menstrual History Last Menstrual Date Menses Monthly On Bcp Conception Prior Menses Frequency Hcg Plus Date Menarche Onset Age Delivery Information Delivery Date Delivery Type Labor Anesthesia Weeks Gestation Incision Type Labor Labor Length Hrs Delivered By Post Complications Tubal Sterilization Discharge Date Comments 1 Discharge Information Feeding Method Contraceptive Method Maternal HG B and HCT Levels Ob Episode Information Episode Created Date Number of Fetuses Patient Bloodtype Patient rh Status Prepregnancy Weight lbs Domestic Partner Domestic Partner Phone Father Name Parts Representative Status 09/09/19 21 1 CLOSED Fetus Data First Name Last Name Admitted to NICU Weight (g) Sex Living Outcome Pediatric Complications Fetus ID Race Codes Race Delivery Type M Full Term 85079 Vaginal Delivery Juan Calculation Initial Juan Date Initial Exam Date Initial Exam Provider Initial Ultrasound Date Last Menstrual Period Date Ultra Sound Weeks Gestation 0 Eighteen To Twenty Week Juan Update Ultra Sound Date Fundal Height At Umbil Quickening Date Ultra Sound Latest Weeks Gestation Final Juan Confirmed By Final Juan Confirmed Date Final Juan Date Ultra Sound Latest Days Gestation 0 0 Menstrual History Last Menstrual Date Menses Monthly On Bcp Conception Prior Menses Frequency Hcg Plus Date Menarche Onset Age Delivery Information Delivery Date Delivery Type Labor Anesthesia Weeks Gestation Incision Type Labor Labor Length Hrs Delivered By Post Complications Tubal Sterilization Discharge Date Comments 5 40 Discharge Information Feeding Method Contraceptive Method Maternal HG B and HCT Levels Ob Episode Information Episode Created Date Number of Fetuses Patient Bloodtype Patient rh Status Prepregnancy Weight lbs Domestic Partner Domestic Partner Phone Father Name Parts Representative Status 09/09/19 21 1 CLOSED Fetus Data First Name Last Name Admitted to NICU Weight (g) Sex Living Outcome Pediatric Complications Fetus ID Race Codes Race Delivery Type M Full Term 77970 Vaginal Delivery Juan Calculation Initial Juan Date Initial Exam Date Initial Exam Provider Initial Ultrasound Date Last Menstrual Period Date Ultra Sound Weeks Gestation 0 Eighteen To Twenty Week Juan Update Ultra Sound Date Fundal Height At Umbil Quickening Date Ultra Sound Latest Weeks Gestation Final Juan Confirmed By Final Juan Confirmed Date Final Juan Date Ultra Sound Latest Days Gestation 0 0 Menstrual History Last Menstrual Date Menses Monthly On Bcp Conception Prior Menses Frequency Hcg Plus Date Menarche Onset Age Delivery Information Delivery Date Delivery Type Labor Anesthesia Weeks Gestation Incision Type Labor Labor Length Hrs Delivered By Post Complications Tubal Sterilization Discharge Date Comments 1 40 Discharge Information Feeding Method Contraceptive Method Maternal HG B and HCT Levels Ob Episode Information Episode Created Date Number of Fetuses Patient Bloodtype Patient rh Status Prepregnancy Weight lbs Domestic Partner Domestic Partner Phone Father Name Parts Representative Status 09/09/19 21 1 CLOSED Fetus Data First Name Last Name Admitted to NICU Weight (g) Sex Living Outcome Pediatric Complications Fetus ID Race Codes Race Delivery Type M Full Term 14471 Vaginal Delivery Juan Calculation Initial Juan Date Initial Exam Date Initial Exam Provider Initial Ultrasound Date Last Menstrual Period Date Ultra Sound Weeks Gestation 0 Eighteen To Twenty Week Juan Update Ultra Sound Date Fundal Height At Umbil Quickening Date Ultra Sound Latest Weeks Gestation Final Juan Confirmed By Final Juan Confirmed Date Final Juan Date Ultra Sound Latest Days Gestation 0 0 Menstrual History Last Menstrual Date Menses Monthly On Bcp Conception Prior Menses Frequency Hcg Plus Date Menarche Onset Age Delivery Information Delivery Date Delivery Type Labor Anesthesia Weeks Gestation Incision Type Labor Labor Length Hrs Delivered By Post Complications Tubal Sterilization Discharge Date Comments 4 40 Discharge Information Feeding Method Contraceptive Method Maternal HG B and HCT Levels Ob Episode Information Episode Created Date Number of Fetuses Patient Bloodtype Patient rh Status Prepregnancy Weight lbs Domestic Partner Domestic Partner Phone Father Name Parts Representative Status 09/09/19 21 1 CLOSED Fetus Data First Name Last Name Admitted to NICU Weight (g) Sex Living Outcome Pediatric Complications Fetus ID Race Codes Race Delivery Type M Full Term 77191 Vaginal Delivery Juan Calculation Initial Juan Date Initial Exam Date Initial Exam Provider Initial Ultrasound Date Last Menstrual Period Date Ultra Sound Weeks Gestation 0 Eighteen To Twenty Week Juan Update Ultra Sound Date Fundal Height At Umbil Quickening Date Ultra Sound Latest Weeks Gestation Final Juan Confirmed By Final Juan Confirmed Date Final Juan Date Ultra Sound Latest Days Gestation 0 0 Menstrual History Last Menstrual Date Menses Monthly On Bcp Conception Prior Menses Frequency Hcg Plus Date Menarche Onset Age Delivery Information Delivery Date Delivery Type Labor Anesthesia Weeks Gestation Incision Type Labor Labor Length Hrs Delivered By Post Complications Tubal Sterilization Discharge Date Comments 9 40 Discharge Information Feeding Method Contraceptive Method Maternal HG B and HCT Levels Ob Episode Information Episode Created Date Number of Fetuses Patient Bloodtype Patient rh Status Prepregnancy Weight lbs Domestic Partner Domestic Partner Phone Father Name Parts Representative Status 09/09/19 21 1 CLOSED Fetus Data First Name Last Name Admitted to NICU Weight (g) Sex Living Outcome Pediatric Complications Fetus ID Race Codes Race Delivery Type , Spontane ous 10197 Juan Calculation Initial Juan Date Initial Exam Date Initial Exam Provider Initial Ultrasound Date Last Menstrual Period Date Ultra Sound Weeks Gestation 0 Eighteen To Twenty Week Juan Update Ultra Sound Date Fundal Height At Umbil Quickening Date Ultra Sound Latest Weeks Gestation Final Juan Confirmed By Final Juan Confirmed Date Final Juan Date Ultra Sound Latest Days Gestation 0 0 Menstrual History Last Menstrual Date Menses Monthly On Bcp Conception Prior Menses Frequency Hcg Plus Date Menarche Onset Age Delivery Information Delivery Date Delivery Type Labor Anesthesia Weeks Gestation Incision Type Labor Labor Length Hrs Delivered By Post Complications Tubal Sterilization Discharge Date Comments 2 Discharge Information Feeding Method Contraceptive Method Maternal HG B and HCT Levels
--- OUTSIDE RECORDS SUMMARY | 2024-06-21 10:50 | XMS_ITS | Encounter Summary ---
Author Organization [facility] Health Address [address] [place] [address] Care Team Providers Care Insurance Attorney Name Role Phone Ryan Minor DO Primary Care Provider [phone] Encounter Details Date Type Department Care Team (Late st Contact Info) Description 09/15/2021 Telephone [facility] [address] [place] [id number] Robbin Yun MD [address] [facility] 2[address] DIV OF PULMONARY/CRITICAL CARE [place], [place] [id number] Social History Tobacco Use Types Packs/Day Years Used Date Smoking Tobacco: Former Smokeless Tobacco: Never Comments:quit 40 years ago Alcohol Use Standard Drinks/Week Comments No 0 (1 standard drink = 0.6 oz pur e alcohol) Sex and Gender Information Value Date Recorded Sex Assigned at Not on file Gender Identity Not on file Sexual Orientation Not on file documented as of this encounter Functional Status Functional Status Response Date of Assess ment Is person deaf or have serious hearing difficult y? No 04/30/2018 Is person blind or have serious difficulty seein g? No 04/30/2018 Does person have serious dif ficulty walking/climbing stairs? Yes 04/30/2018 Does person have difficulty dressing/bathing? No 04/30/2018 Does person have difficulty doing errands alone? No 04/30/2018 Cognitive Status Response Date of Assessm ent Does person have difficulty concentrating/remembering/making decisions? No 04/30/2018 documented as of this encounter Miscellaneous Notes * Telephone Encounter - Gale Ring - 09/15/2021 10:31 AM CDT Current Provider name: Dr. Robbin Yun Reason for call: Ms. eZna Butler has a HST-PICKUP 09/21/2021 and was exposed to someone with COVID 09/14/2021. 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 Please call patient. Patient Call Back number: [phone] documented in this encounter Plan of Treatment Not on file documented as of this encounter Visit Diagnoses Not on filedocumented in this encounter Care Teams Insurance Attorney Relationship Specialty Start Date End Date Ryan Minor DO [address] [place] [address] PCP - General 07/02/19 documented as of this encounter
--- OUTSIDE RECORDS SUMMARY | 2024-06-21 10:50 | XMS_ITS | Continuity of Care Document ---
Author Organization [facility] Address [address] [place] [address] [place] [address] Phone Care Team Providers Care Barrel Rifler Hook Name Role Phone Qian Stokes Unavailable Unavailable Procedures Procedure Date Eye Exam Established Pt Visual Field Examination(s) Eye Exam Established Pt Office/outpatient Visit, Est Eye Exam, New Patient Advance Directives Directive Yes / No Effective Date File Name No Information Encounters Encounter Description Practice Location Reason(s) For Visit Diagnoses Date Provider Providers Copied on Encounter Formerly [facility], [address] [place] [address] [address], [place], [place], [id number], tel:[phone] [facility] No Information Jan-0 7-201 0 Divya Velazquez [address] , [address], [place], [address], [place]. tel:[phone] Formerly [facility], [address] [place] [address] [address], [place], [place], [id number], [place] tel:[phone] [facility] No Information 9-200 8 Divya Velazquez [address] , [address], [place], [address], [place]. tel:[phone] Referring Provider: Qian Stephenson [address], [place], [place], [facility]. tel:[phone] Formerly [facility], [address], [place], [place], [address], [place] tel:[phone] [facility] No Information 8 Divya Laughlin. [address], [place], [address], [place]. tel:[phone] Office/outpat ient Visit, Est Formerly [facility], [address], [place], [place], [address], [place] tel:[phone] [facility] No Information 0 200 7 Serjio Garcia. [address], [address], [place], [place], [address], [place]. tel:[phone] Formerly [facility], [address], [place], [place], [address], [place] tel:[phone] [facility] No Information 7 Divya Laughlin. [address] , [address], [place], [address], [place]. tel:[phone] Family History Family Member Type Diagnosis Age At Onset No Information Payers Payer name Insurance type Covered libertarian ID Authoriza tion(s) No Information Social History [...]
--- OUTSIDE RECORDS SUMMARY | 2024-06-21 10:50 | XMS_ITS | Encounter Summary ---
Author Organization [facility] Health Address [address] [place] [address] Care Team Providers Care Culture Room Worker Name Role Phone Ryan Minor DO Primary Care Provider Encounter Details Date Type Department Care Team (Late st Contact Info) Description 08/30/2021 Telephone [facility] [address] [place] [address] Ryan Minor DO [address] [place] [id number] Social History Tobacco Use Types Packs/Day Years [...] No 04/30/2018 documented as of this encounter Plan of Treatment Not on file documented as of this encounter Visit Diagnoses Not on filedocumented in this encounter Care Teams Culture Room Worker Relationship Specialty Start Date End Date Ryan Minor DO [address] [place] [address] PCP - General 07/02/19 documented as of this encounter
--- OUTSIDE RECORDS SUMMARY | 2024-06-21 10:50 | XMS_ITS | Continuity of Care Document ---
Author Organization [facility] Address [address] [place] [address] Phone Care Team Providers Care Composite Science Teacher Name Role Phone Daquan Redman MD Unavailable [...] Providers Copied on Encounter Office/outpat ient visit,est, [facility], [address], [id number], tel:[phone] [facility] No Information 9 Юлия Butt. [address] [facility], [place] [address], [place], [place], [id number] , [place]. tel:[phone] [facility], [address] [place] [address], [id number], tel:[phone] [facility] No Information 9 Юлия Butt. [address] [facility], [address], [place], [place], [id number] , [place]. tel: [phone] [facility], [address] [facility] [address], [place], [place], [id number], [place] [phone] [facility] No Information 9[address] 9 Юлия Butt. [address] [facility], [facility] [address], [place], [place], [id number] , [place]. tel: [phone] [facility], [address] [facility] [address], [place], [id number], [place] [phone] [facility] No Information 9 Юлия Butt. [address] [facility], [facility] [address], [place], [place], [id number] , [place]. tel: [phone] Office/outpat ient visit,[facility], [address], [id number], [place] tel:[phone] [facility] No Information 9 Юлия Butt. [address] [facility], [facility] [address], [place], [place], [id number] , [place]. tel: [phone] Office/outpat ient visit,[facility], [address], [id number], [place] tel:[phone] [facility] No Information 0200 9 Юлия Butt. [address] [facility], [address], [place], [place], [id number] , [place]. tel:[phone] Referring Provider: Luis Felipe Godwin, [address], [place], [address]. tel:[phone] Family History Family Member Type Diagnosis Age At Onset No Information Payers Payer name Insurance type Covered democrat ID Authoriza praful(s) [employer] Shiclaudine [facility] [id number] Social History Type Description Quantity Date Captured [...]
--- OUTSIDE RECORDS SUMMARY | 2024-06-21 10:50 | XMS_ITS | Patient Health Summary ---
Author Organization [facility] Address [address] [place] [address] Care Team Providers Care Seat Installer Name Role Phone Ryan Minor Primary Care Provider [phone] Note from [facility],non-owned Affiliates and Associated Physician Practices is amultiple site organization consisting of ambulatory clinics and hospital sitesin [place], [place], [place] and [place]. This disclosure is being madepursuant to the Care Everywhere program and may not contain all information available regarding this patient. Last updated 17.[facility] Allergies * Levaquin(Other) -Low Criticality Medications * Be aware that medications may not be up to date on this document. Alwaysverify current medications with the patient. * venlafaxine XR 24hr (EFFEXOR XR) 150 MG capsule(Started 01/03/2018) Take 1 capsule by mouth once daily * traZODone (DESYREL) 150 MG tablet(Started 12/26/2017) Take 1 tablet by mouth at bedtime 1 refill left * busPIRone (BUSPAR) 15 MG tablet Take 15 mg by mouth at bedtime * clonazePAM (KLONOPIN) 1 MG tablet(Started 06/29/2021) TAKE 1 TABLET BY MOUTH THREE TIMES DAILY NEEDED FOR INSOMNIA * rOPINIRole (REQUIP) 1 MG tablet(Started 05/24/2021) * fluticasone propionate (FLONASE) 50 MCG/ACT nasal spray(Started 08/20/2021) Warnock 2 (two) sprays into each nostril once daily 4 refills by 08/20/2022 * LINZESS 290 MCG capsule(Started 08/15/2021) Active Problems Problem Noted Date Diagnosed Date Knee joint replacement by other means 04/30/2018 Primary osteoarthritis of right knee 02/13/2018 Other constipation 06/18/2014 Other microscopic hematuria 07/15/2013 Acquired cyst of kidney 07/15/2013 Essential (primary) hypertension 11/18/2011 Obstructive sleep apnea 08/19/2010 Osteoarthritis 08/05/2010 Major depressive disorder, single episode 2010 Other fatigue 08/05/2010 Anxiety disorder 08/05/2010 Hypersomnia 08/05/2010 Hypothyroidism 08/05/2010 Immunizations * INFLUENZA VACCINE, TRIV. (AFLURIA, FLUZONE TRIVALENT; 6MO+) (IIV3)(Given 04/10/2010) * INFLUENZA VACCINE, QUADR. (FLUZONE; FLULAVAL; FLUARIX; AFLURIA QUADRIVALENT; 6MO+), 0.5 ML (IIV4)(Given 05/01/2018) Social History Tobacco Use Types Packs/Day Years Used Date Smoking Tobacco: Former Smokeless Tobacco: Never Tobacco Cessation:Counseling Given: No Comments:quit 40 years ago Alcohol Use Standard Drinks/Week Comments No 0 (1 standard drink = 0.6 oz pur e alcohol) AUDIT-C Answer Date Recorded Q1: How often do you have a drink containing alcohol? Never 11/15/2021 Q2: How many drinks containi ng alcohol do you have on a typical day when you are drinking? Patient does not drink Q3: How often do you have si x or more drinks on one occasion? Never 11/15/2021 Sex and Gender Information Value Date Recorded Sex Assigned at Not on file Gender Identity Not on file Sexual Orientation Not on file Last Filed Vital Signs Vital Sign Reading Time Taken Comments Blood Pressure 128/83 11/29/2021 11:54 AM CDT Pulse 66 11/29/2021 11:54 AM CDT Temperature 36.2 C (97.1 F) 11/29/2021 11:33 AM CDT Respiratory Rate 14 11/29/2021 11:54 AM CDT Oxygen Saturation 99% 11/29/2021 11:54 AM CDT Inhaled Oxygen Concentration - - Weight 70.3 kg (155 lb) 11/29/2021 8:18 AM CDT Height 152.4 cm (5') 11/29/2021 8:18 AM CDT Body Mass Index 30.27 11/29/2021 8:18 AM CDT Medical Devices Implanted Type Area Computing Consultant Device Identifier Shelf Expiration Date Model / Serial / Lot Cmnt Bone Cblt 40gm Hvisc Strl Implanted:Qty: 1 on 04/30/2018 by Alix Mckenna MD at [facility] Right: Knee [employer] 08/24/2019 [id number] / / [id number] Cmpnt Ptlr 28mm 1 Pg Wire Ascnt Arcm Kn Implanted:Qty: 1 on 04/30/2018 by Alix Mckenna MD at [facility] Right: Knee [employer] 04/04/2023 [id number] / / [id number] Cmpnt Fem Kn Rt Cr Cmnt Prm Vngrd Intlk 62.5mm Implanted:Qty: 1 on 04/30/2018 by Alix Mckenna MD at [facility] Right: Knee [employer] 02/05/2028 [id number] / / [id number] Tray Tib 71mm Kn Cocr I Beam Implanted:Qty: 1 on 04/30/2018 by Alix Mckenna MD at [facility] Right: Knee [employer] 02/10/2028 [id number] / / [id number] Brng [id number] Vngrd Arcm Kn Ant Stab Implanted:Qty: 1 on 04/30/2018 by Alix Mckenna MD at [facility] Right: Knee [employer] 01/18/2023 [id number] / / [id number] Lens Iol 0 D +20 Marlo Mod L Bcnvx Acrsf - [id number] Implanted:Qty: 1 on 11/15/2021 by Liam Brito MD at [facility] Left: Eye [employer] 09/19/2026 [id number].200 / [id number] / Lens Iol 0 D +21.5 Marlo Mod L Bcnvx - [id number] Implanted:Qty: 1 on 11/29/2021 by Liam Brito MD at [facility] Right: Eye [employer] 09/25/2026 SN60WF.215 / [id number] / Procedures * EXTRACTION CATARACT WITH INSERTION LENS(Performed 11/29/2021) Performed for Nuclear sclerotic cataract of both eyes * MA POLYSOM 6/> YRS 4/> DANIELLA(Performed 11/19/2021) Performed for VISH (obstructive sleep apnea) * EXTRACTION CATARACT WITH INSERTION LENS(Performed 11/15/2021) Performed for Nuclear sclerotic cataract of both eyes * OPH IOL TEST SLU(Performed 10/22/2021) Performed for Nuclear sclerotic cataract of both eyes * OPH CORNEAL TOPOGRAPHY TEST SLU(Performed 10/22/2021) Performed for Nuclear sclerotic cataract of both eyes * MA SLEEP STUDY UNATT&RESP EFFT(Performed 10/18/2021) Performed for VISH (obstructive sleep apnea) * VITAMIN D 25-HYDROXY(Performed 09/08/2021) * VITAMIN B12(Performed 09/08/2021) * METHYLMALONIC ACID BLOOD(Performed 09/08/2021) * IRON + TIBC + FERRITIN(Performed 09/08/2021) * URINALYSIS AUTO - POINT OF CARE (AMB) STL(Performed 06/02/2020) Performed for Hematuria, unspecified type * CULTURE URINE(Performed 06/02/2020) Performed for Hematuria, unspecified type * XR SPINE ENTIRE 2 OR 3VW(Performed 09/30/2019) Performed for Back pain, unspecified back location, unspecified back pain laterality, unspecified chronicity * MRI PELVIS WWO CONTRAST(Performed 08/07/2019) Performed for Renal cyst * MRI ABDOMEN WWO CONTRAST(Performed 08/07/2019) Performed for Renal cyst * CREATININE BLOOD - POCT (IP) SLH(Performed 08/07/2019) Performed for Renal cyst * XR KNEE RIGHT 3VW(Performed 06/11/2018) Performed for Knee joint replacement by other means * NEURAXIAL BLOCK(Performed 05/07/2018) * HGB HCT PANEL(Performed 05/02/2018) * HGB HCT PANEL(Performed 05/01/2018) * ARTHROPLASTY TOTAL KNEE(Performed 04/30/2018) * HOME CPAP/BIPAP FOR HOSP USE: NOCTURNAL 02(Performed 04/30/2018) * HOME CPAP/BIPAP FOR HOSP USE: NOCTURNAL 02(Performed 04/30/2018) * EKG 12-LEAD(Performed 04/12/2018) Performed for Preop examination * COMPREHENSIVE METABOLIC PANEL(Performed 04/12/2018) Performed for Preop examination * CBC W AUTO DIFFERENTIAL(Performed 04/12/2018) Performed for Preop examination * CULTURE MSSA/MRSA(Performed 04/12/2018) Performed for Preop examination * CT ABDOMEN PELVIS W CONTRAST(Performed 03/10/2017) * URINALYSIS REFLEX TO MICROSCOPIC NO CULTURE(Performed 03/10/2017) * COMPREHENSIVE METABOLIC PANEL(Performed 03/10/2017) * CBC W AUTO DIFFERENTIAL(Performed 03/10/2017) * CBC W AUTO DIFFERENTIAL(Performed 03/10/2017) * XR ABD OBSTRUCTION SERIES 2VW(Performed 03/10/2017) * CT US GUIDED NEEDLE PLACEMENT(Performed 08/29/2013) * CT GUIDED NEEDLE PLACEMENT(Performed 08/29/2013) * CYTOLOGY NON-SULFUR BURNER PANEL (STL)(Performed 08/29/2013) * COMPREHENSIVE METABOLIC PANEL(Performed 08/29/2013) * PT-INR SLH(Performed 08/29/2013) * PTT SLH(Performed 08/29/2013) * CBC W AUTO DIFFERENTIAL(Performed 08/29/2013) * CBC W AUTO DIFFERENTIAL(Performed 08/29/2013) * URINALYSIS AUTO - POINT OF CARE (AMB) SLU(Performed 08/15/2013) * CULTURE URINE(Performed 07/15/2013) * URINALYSIS AUTO - POINT OF CARE (AMB) SLU(Performed 07/15/2013) * US RETROPERITONEAL COMPLETE(Performed 11/18/2011) * US ABDOMEN LIMITED(Performed 11/18/2011) * PATHOLOGY REPORTS - HPF HISTORICAL(Performed 11/18/2011) * PATHOLOGY TISSUE(Performed 10/30/2011) * PATHOLOGY TISSUE(Performed 10/30/2011) * PATHOLOGY REPORTS - HPF HISTORICAL(Performed 05/03/2010) * PATHOLOGY/GENETICS HISTORICAL-ONBASE(Performed 04/26/2010) * HLA - HPF HISTORICAL REPORTS(Performed 08/27/2008) Results * MA POLYSOM 6/> YRS 4/> DANIELLA (11/19/2021 1:42 PM CDT) Narrative Robbin Yun MD - 11/19/2021 1:42 PM CDT Robbin Yun MD 11/19/2021 1:45 PM [facility] Accredited by the [employer] [facility], First Floor [address] [place] [address] Telephone : [phone] Medical Records Patient Name: Zena Butler : 1950 Date of Study: 11/18/2021 Referring Physician: Ryan Minor DO Type of Montage: Respiratory Scoring System: [facility] FULL NIGHT DIAGNOSTIC POLYSOMNOGRAM INTERPRETATION (11/18/2021) Procedure: The polysomnogram was performed with a operating room technologist in attendance. Central, occipital, and temporal EEG, EOG, submentalis, EMG, nasal thermistor, nasal pressure, thoracoabdominal motion, anterior tibialis EMG, snore sensor, and pulse oximetry were monitored. Sleep stages, periodic limb movements, and EEG arousals were scored in 30-second epochs according to the AASM Scoring Manual. Apnea-hypopnea index was calculated using the recommended definition of hypopnea for scoring events. Data acquisition, collection, and scoring have been validated and clinically correlated. Sleep History: Ms. Zena Butler, a 71 year old female, was referred to the Sleep Disorders Clinic by Ryan Minor DO for the evaluation of suspected obstructive sleep apnea (VISH). Current Outpatient Medications: busPIRone (BUSPAR) 15 MG tablet, Take 15 mg by mouth at bedtime, Disp: , Rfl: clonazePAM (KLONOPIN) 1 MG tablet, TAKE 1 TABLET BY MOUTH THREE TIMES DAILY NEEDED FOR INSOMNIA, Disp: , Rfl: fluticasone propionate (FLONASE) 50 MCG/ACT nasal spray, Warnock 2 (two) sprays into each nostril once daily, Disp: 48 g, Rfl: 4 LINZESS 290 MCG capsule, , Disp: , Rfl: moxifloxacin (Vigamox) 0.5 % ophthalmic solution, Instill 1 (one) drop into left eye as directed every 2 hours while awake today (day of surgery) then 4 times daily starting tomorrow, Disp: , Rfl: nepafenac (Nevanac) 0.1 % ophth suspension, Instill 1 drop into left eye as directed every 2 hours while awake today (day of surgery) then 4 times daily starting tomorrow, Disp: , Rfl: prednisoLONE acetate (Pred Forte) 1 % ophthalmic suspension, Instill 1 (one) drop into left eye as directed every 2 hours while awake today (day of surgery) then 4 times daily starting tomorrow, Disp: , Rfl: rOPINIRole (REQUIP) 1 MG tablet, , Disp: , Rfl: traZODone (DESYREL) 150 MG tablet, Take 1 tablet by mouth at bedtime, Disp: , Rfl: 1 venlafaxine XR 24hr (EFFEXOR XR) 150 MG capsule, Take 1 capsule by mouth once daily, Disp: , Rfl: 0 DIAGNOSTIC STUDY Sleep Architecture: During this diagnostic study, the patient was monitored from 10:52 pm to 6:02 am. The patient slept for 417 minutes and had increased sleep efficiency of 96.9%. The patient's initial sleep latency was borderline reduced at 9 minutes. The initial REM latency was within normal limits at 94.5 minutes. The sleep architecture was as follows: stage N1: 2.4%; stage N2: 62.2%; stage N3: 21.1%; stage REM: 14.3%. Respiratory Analysis: The patient's overall apnea-hypopnea index (AHI) was increased at 7.8 per hour while the respiratory effort-related arousal index was increased at 5.5 per hour. The overall respiratory disturbance index (RDI) was 13.3 per hour. The supine AHI was 21.4 per hour and the supine RERA index was 7.3 per hour. The lateral AHI was 2 per hour and the lateral RERA index was 4.7 per hour. The REM AHI was 42.4 per hour while the REM RERA index was 3 per hour. There were 45 obstructive apneas, 0 central apneas, 2 mixed apneas, 7 hypopneas, and 38 respiratory effort-related arousals (RERA). There was no evidence of periodic breathing. Oximetry Data: The minimum oxygen saturation was decreased at 87% during REM sleep and decreased at 76% during non-REM sleep. The time spent with oxygen saturation less than 90% was 41 minutes of the total diagnostic sleep time. Snoring Profile: Moderate snoring was detected during this study. Periodic Limb Movements: The patient's periodic limb movement index was within normal limits at 5.9 per hour. EEG Profile: The patient's total arousal index was within normal limits at 13.5 per hour. There was no epileptiform activity during sleep. Cardiac Profile: EKG showed normal sinus rhythm. No clinically significant arrhythmia was noted. Parasomnias: No parasomnia was noted during this diagnostic study. IMPRESSION: 1. Mild obstructive sleep apnea, worse during REM sleep and supine sleep. 2. Nocturnal hypoxemia RECOMMENDATIONS: 1. Suggest therapeutic continuous positive airway pressure (CPAP) trial Robbin Yun MD, [facility], [facility], [facility] Building Principal, [facility] Professor of Internal Medicine Adjunct Relations Liaison of Neurology Division of Pulmonary, Critical Care, and Sleep Medicine [facility] This note was electronically signed on 11/19/2021. CC: Ryan Mionr DO [address] [place] [address] Ryan Minor DO Robbin Yun MD PROCEDURE/MINOR KARMA GICAL ORDERABLES * IOL Master (Lenstar) (10/22/2021 10:45 AM CDT) Anatomical Region Laterality Modality Other 10/22/2021 10:4 5 AM CDT Liam Brito MD OPHTHALMOLOGY SERVIC ES ORDERABLES * Corneal Topography (10/22/2021 10:34 AM CDT) Anatomical Region Laterality Modality Other 10/22/2021 10:3 4 AM CDT Liam Brito MD OPHTHALMOLOGY SERVIC ES ORDERABLES * MA SLEEP STUDY UNATT&RESP EFFT (10/18/2021 2:26 PM CDT) Narrative Robbin Yun MD - 10/18/2021 2:26 PM CDT Robbin Yun MD 10/18/2021 2:30 PM [facility] Accredited by the [employer] [facility], First Floor [address] [place] [address] Telephone : [phone] Medical Records Patient Name: Zena Butler : 1950 Date of Study: 10/14/2021 Referring Physician: Provider Unknown No address on file Type of Montage: Type III Respiratory (oximetry, pulse rate, airflow, body position, respiratory movement) UNATTENDED HOME SLEEP APNEA TEST Unattended HST Summary Report Patient Name: Zena Butler Date of : 1950 Chart Code: [id number] Weight: 146.0 lbs Study Date: 10/14/21 Height: 153 cm Age: 71 BMI: 28.4 Neck Circumference: 0 Sex: Female Waist: 0 Hip: 0 Waist-Hip Ratio: 0.00 Referring Physician: Comments: Total Recording Time(TRT): 13.7 minutes Cardiac Respiratory and Snoring Events Total# Index Duration (sec.) Avg HR: 79.0 Min HR: 45.0 Max HR: 94.0 Mean Min Max Central Apneas 0 0.0 0.0 0.0 0.0 Oximetry Obstructive.Apneas 0 0.0 0.0 0.0 0.0 Mean SpO2 92.4% Mixed Apneas 0 0.0 0.0 0.0 0.0 Min SpO2 57.0% Hypopneas 5 21.8 32.8 13.7 84.0 Max SpO2 96.0% Apnea + Hypopnea 5 21.8 32.8 13.7 84.0 SpO2 Range % Minutes 90-100 % 96.9% 13.2 80-89 % 2.9% 0.4 Desaturations 5 21.8 31.2 18.1 44.1 70-79 % 0.0% 0.0 60-69% 0.0% 0.0 Snoring 44 192.2 0.8 0.4 2.2 50-59% 0.0% 0.0 < 50 % 0.1% 0.0 Body Position Supine Prone Left Side Right Side Total Non Supine % Time in Position 93.6% 0.5% 2.9% 0.0% 3.4% Snoring events 43 0 1 0 1 Apnea + Hypopnea events 4 0 1 0 1 Apnea + Hypopnea Index 18.7 0.0 150.0 0.0 128.6 SPO2 PULSE RESPIRATORY #ERR# BODYPOS BAD Total Recording Time: 13.7 minutes Patient Apnea-Hypopnea Index Severe Moderate Mild Normal Zena Salazartania 21.8 >30 15 to 30 5 to 15 <5 HOME SLEEP APNEA TEST INTERPRETATION (10/14/2021) DIAGNOSTIC STUDY During this diagnostic study, the patient was only monitored for 21 minutes. IMPRESSION: Technically inadequate study with insufficient monitoring time. RECOMMENDATIONS: Repeat HSAT or do in-laboratory polysomnography. Robbin Yun MD, [facility], [facility], [facility] Building Principal, [facility] Professor of Internal Medicine Adjunct Relations Liaison of Neurology Division of Pulmonary, Critical Care, and Sleep Medicine [facility] This note was electronically signed on 10/18/2021. CC: Provider Unknown No address on file Robbin Yun MD PROCEDURE/MINOR KARMA GICAL ORDERABLES * IRON + TIBC + FERRITIN (09/08/2021 1:35 PM CDT) Iron 87 45 - 160 mcg/dL [facility] TIBC 298 250 - 450 mcg/dL (calc) [facility] % Saturation 29 16 - 45 % (calc) [facility] Ferritin 58 16 - 288 ng/mL [facility] Comment: Test Performed at: [facility] [address] [address] ALIX TERRY DO,MPH 09/08/2021 1:35 PM CDT 09/08/2021 1:37 PM CDT Robbin Yun MD LAB - CHEMISTRY ORD ERABLES [facility] [address] [place] [address] * METHYLMALONIC ACID BLOOD (09/08/2021 1:35 PM CDT) Methylmalonic Acid 172 87 - 318 nmol/L [facility] Comment: This test was developed and its analytical performance characteristics have been determined by [facility] [place], [place]. It has not been cleared or approved by the U.S. Food and Drug Administration. This assay has been validated pursuant to the CLIA regulations and is used for clinical purposes. Test Performed at: [facility] [address] [place], [place] CANDIDO DISLA MD,PHD 09/08/2021 1:35 PM CDT 09/08/2021 1:37 PM CDT Robbin Yun MD LAB - CHEMISTRY ORD ERABLES Performing Organization Address [facility] Co de Phone Number [facility] [address] [place] [address] * VITAMIN D 25-HYDROXY (09/08/2021 1:35 PM CDT) Pathologist [facility] Vitamin D, 25 Hydroxy 35 30 - 100 ng/mL [facility] Comment: Vitamin D Status 25-OH Vitamin D: Deficiency: <20 ng/mL Insufficiency: 20 - 29 ng/mL Optimal: > or = 30 ng/mL For 25-OH Vitamin D testing on patients on D2-supplementation and patients for whom quantitation of D2 and D3 fractions is required, the QuestAssureD(TM) 25-OH VIT D, (D2,D3), LC/MS/MS is recommended: order code 17737 (patients >2yrs). See Note 1 Note 1 For additional information, please refer to http://[email or web address]/faq/[email or web address] (This link is being provided for informational/ educational purposes only.) Test Performed at: [email or web address] [address] [place] [address] ALIX TERRY DO,MPH 09/08/2021 1:35 PM CDT 09/08/2021 1:37 PM CDT Robbin Yun MD LAB - CHEMISTRY ORD ERABLES Performing Organization Address [facility] Co de Phone Number [facility] [address] [place] [address] * VITAMIN B12 (09/08/2021 1:35 PM CDT) Vitamin B12 517 200 - 1100 pg/mL [facility] Comment: Test Performed at: [email or web address] [address] [address] ALIX TERRY DO,MPH 09/08/2021 1:35 PM CDT 09/08/2021 1:37 PM CDT Robbin Yun MD LAB - CHEMISTRY ORD ERABLES [facility] [address] [place] [address] * URINALYSIS AUTO - POINT OF CARE (AMB) STL (06/02/2020 6:53 PM MINING MACHINERY ASSEMBLER) Pathologist [facility] Clarity UA POCT clear [facility] Color UA POCT light yellow [facility] Leukocyte UA negative Negative [facility] Nitrite UA POCT negative Negative [facility] Urobilinogen UA 0.2 0.1 - 1.0 [facility] Protein UA POCT negative Negative [facility] pH UA 5.0 5.0 - 8.0 pH units [facility] Blood UA +++ Negative [facility] Specific [place] UA POCT 1.002 1.002 - 1.030 [facility] Ketone UA negative Negative [facility] Bilirubin UA POCT negative Negative [facility] Glucose UA negative Negative [facility] Expiration Date 08 21 2020 [facility] Lot # [id number] [facility] QC Verified Yes Yes [facility] Urine URINE / Unknown 06/02/2020 6 :53 PM MINING MACHINERY ASSEMBLER Mita Medellin APRN-ISI LAB - POINT OF CA RE ORDERABLES [facility] [address] [phone] * CULTURE URINE (06/02/2020 6:50 PM MINING MACHINERY ASSEMBLER) Only the most recent of2 resultswithin the time period is included. Culture [facility] Comment: CULTURE, URINE, ROUTINE Micro Number: [id number] Test Status: Final Specimen Source: URINE, CLEAN CATCH Specimen Quality: Adequate Result: No Growth Test Performed at: [facility] [address] LILIANE ADAMS MD Urine URINE SPECIMEN OBTAINED BY CLEAN CATCH PROCEDURE / Unknown 06/02/2020 6:50 PM MINING MACHINERY ASSEMBLER 06/04/2020 12:31 AM MINING MACHINERY ASSEMBLER Mita Medellin CRYPTOGRAPHY TEACHER-TEACHER OF THE HEARING IMPAIRED LAB - MICROBIOLOG Y ORDERABLES [address] [address] * XR SPINE ENTIRE 2 OR 3VW (09/30/2019 1:46 PM CDT) Anatomical Region Laterality Modality Spine Radiographic Sisi ging 09/30/2019 2:38 PM CDT Impressions 09/30/2019 2:40 PM CDT IMPRESSION: No significant scoliosis. This report was electronically signed by MIGEL LAW MD on 09/30/2019 2:40 PM . Narrative 09/30/2019 2:40 PM CDT Exam: XR SPINE ENTIRE 2 VW History: M54.9: Back pain, unspecified back location, unspecified back pain laterality, unspecified chronicity Comparison: None. Findings: There is no significant scoliosis. There is grade 1 anterolisthesis at L4-5. There is moderate cervical and mild thoracic and lumbar degenerative change. Right upper quadrant clips are noted. Procedure Note Migel Law MD - 09/30/2019 Exam: XR SPINE ENTIRE 2 VW History: M54.9: Back pain, unspecified back location, unspecified back pain laterality, unspecified chronicity Comparison: None. Findings: There is no significant scoliosis. There is grade 1 anterolisthesis at L4-5. There is moderate cervical and mild thoracic and lumbardegenerative change. Right upper quadrant clips are noted. IMPRESSION: No significant scoliosis. This report was electronically signed by MIGEL LAW MD on09/30/2019 2:40 PM . Federico Gonzales MD DIAGNOSTIC IMAGING O RDERABLES * MRI PELVIS WWO CONTRAST (08/07/2019 12:10 PM CDT) Anatomical Region Laterality Modality Pelvis Magnetic Resonan ce 08/07/2019 12:3 8 PM CDT Impressions 08/07/2019 1:37 PM CDT IMPRESSION: Unchanged size of a 6.5 cm left simple renal cyst. Dictated by Robbin Mireles MD (Stitch Wheeler). I, Dr. KRISTOFER DILLON M.D. have personally reviewed and interpreted this examination/study. This report was electronically signed by KRISTOFER DILLON M.D. on 08/07/2019 1:37 PM . Narrative 08/07/2019 1:37 PM CDT EXAMINATION: Magnetic resonance imaging (MRI) of the abdomen and pelvis without and with contrast HISTORY: Follow-up for renal cyst. TECHNIQUE: MRI of the abdomen and pelvis was performed prior to and following the uneventful administration of 14 mL of Multihance intravenous gadolinium contrast according to standard protocol. COMPARISON: CT abdomen and pelvis dated March 10, 2017. FINDINGS: Abdomen: The visible lung bases are clear. There is no evidence of hepatic steatosis. No focal hepatic lesions are identified. The intrahepatic and extrahepatic bile ducts are nondilated. The hepatic arterial anatomy is conventional. The portal vein and its major branches are patent. The hepatic veins are patent. The gallbladder is surgically absent. A left mid-renal to upper pole simple cyst measures 6.5 cm TV by 6.2 cm AP (series 5, image 18) by 6.6 cm CC (series 3, image 11). There are no internal septations or enhancement. An additional 0.4 cm simple cyst is also seen in the left upper renal pole. A 0.5 cm T2 hyperintense lesion is seen at the left lower splenic pole and may represent a benign lesion such as a hemangioma. The pancreas and adrenal glands appear normal. No free intraperitoneal fluid is identified. Multilevel degenerative disc disease is present. Pelvis: The urinary bladder is empty. The uterus is surgically absent. No free pelvic fluid is identified. Procedure Note Kristofer Dillon MD - 08/07/2019 EXAMINATION: Magnetic resonance imaging (MRI) of the abdomen and pelvis without and with contrast HISTORY: Follow-up for renal cyst. TECHNIQUE: MRI of the abdomen and pelvis was performed prior to and following the uneventful administration of 14 mL of Multihanceintravenous gadolinium contrast according to standard protocol. COMPARISON: CT abdomen and pelvis dated March 10, 2017. FINDINGS: Abdomen: The visible lung bases are clear. There is no evidence of hepatic steatosis. No focal hepatic lesions are identified. The intrahepatic and extrahepatic bile ducts are nondilated. The hepatic arterial anatomy is conventional. The portal vein and its major branches are patent. The hepatic veins are patent. The gallbladder is surgically absent. A left mid-renal to upper pole simple cyst measures 6.5 cm TV by 6.2 cm AP (series 5, image 18) by 6.6cm CC (series 3, image 11). There are no internal septations orenhancement. An additional 0.4 cm simple cyst is also seen in the left upper renal pole. A 0.5 cm T2 hyperintense lesion is seen at the left lower splenic pole and may represent a benign lesion such as a hemangioma. Thepancreas and adrenal glands appear normal. No free intraperitoneal fluid is identified. Multilevel degenerative disc disease is present. Pelvis: The urinary bladder is empty. The uterus is surgically absent. No free pelvic fluid is identified. IMPRESSION: Unchanged size of a 6.5 cm left simple renal cyst. Dictated by Robbin Mireles MD ([employer]). Dr. KRISTOFER Mata M.D. have personally reviewed and interpreted this examination/study. This report was electronically signed by KRISTOFER DILLON M.D. on08/07/2019 1:37 PM . Ankit Mayorga MD MR ORDERABLES * MRI ABDOMEN WWO CONTRAST (08/07/2019 12:09 PM CDT) Anatomical Region Laterality Modality Abdomen Magnetic Resonan ce 08/07/2019 12:3 8 PM CDT Impressions 08/07/2019 1:37 PM CDT IMPRESSION: Unchanged size of a 6.5 cm left simple renal cyst. Dictated by Robbin Mireles MD ([employer]). Dr. KRISTOFER Mata M.D. have personally reviewed and interpreted this examination/study. This report was electronically signed by KRISTOFER DILLON M.D. on 08/07/2019 1:37 PM . Narrative 08/07/2019 1:37 PM CDT EXAMINATION: Magnetic resonance imaging (MRI) of the abdomen and pelvis without and with contrast HISTORY: Follow-up for renal cyst. TECHNIQUE: MRI of the abdomen and pelvis was performed prior to and following the uneventful administration of 14 mL of Multihance intravenous gadolinium contrast according to standard protocol. COMPARISON: CT abdomen and pelvis dated March 10, 2017. FINDINGS: Abdomen: The visible lung bases are clear. There is no evidence of hepatic steatosis. No focal hepatic lesions are identified. The intrahepatic and extrahepatic bile ducts are nondilated. The hepatic arterial anatomy is conventional. The portal vein and its major branches are patent. The hepatic veins are patent. The gallbladder is surgically absent. A left mid-renal to upper pole simple cyst measures 6.5 cm TV by 6.2 cm AP (series 5, image 18) by 6.6 cm CC (series 3, image 11). There are no internal septations or enhancement. An additional 0.4 cm simple cyst is also seen in the left upper renal pole. A 0.5 cm T2 hyperintense lesion is seen at the left lower splenic pole and may represent a benign lesion such as a hemangioma. The pancreas and adrenal glands appear normal. No free intraperitoneal fluid is identified. Multilevel degenerative disc disease is present. Pelvis: The urinary bladder is empty. The uterus is surgically absent. No free pelvic fluid is identified. Procedure Note Kristofer Dillon MD - 08/07/2019 EXAMINATION: Magnetic resonance imaging (MRI) of the abdomen and pelvis without and with contrast HISTORY: Follow-up for renal cyst. TECHNIQUE: MRI of the abdomen and pelvis was performed prior to and following the uneventful administration of 14 mL of Multihanceintravenous gadolinium contrast according to standard protocol. COMPARISON: CT abdomen and pelvis dated March 10, 2017. FINDINGS: Abdomen: The visible lung bases are clear. There is no evidence of hepatic steatosis. No focal hepatic lesions are identified. The intrahepatic and extrahepatic bile ducts are nondilated. The hepatic arterial anatomy is conventional. The portal vein and its major branches are patent. The hepatic veins are patent. The gallbladder is surgically absent. A left mid-renal to upper pole simple cyst measures 6.5 cm TV by 6.2 cm AP (series 5, image 18) by 6.6cm CC (series 3, image 11). There are no internal septations orenhancement. An additional 0.4 cm simple cyst is also seen in the left upper renal pole. A 0.5 cm T2 hyperintense lesion is seen at the left lower splenic pole and may represent a benign lesion such as a hemangioma. Thepancreas and adrenal glands appear normal. No free intraperitoneal fluid is identified. Multilevel degenerative disc disease is present. Pelvis: The urinary bladder is empty. The uterus is surgically absent. No free pelvic fluid is identified. IMPRESSION: Unchanged size of a 6.5 cm left simple renal cyst. Dictated by Robbin Mireles MD ([employer]). I, Dr. KRISTOFER DILLON M.D. have personally reviewed and interpreted this examination/study. This report was electronically signed by KRISTOFER DILLON M.D. on08/07/2019 1:37 PM . Ankit Mayorga MD MR ORDERABLES * CREATININE BLOOD - POCT (IP) [facility] (08/07/2019 10:56 AM CDT) Creatinine POCT 0.95 0.3 - 1.3 mg/dL [facility] POCT TESTING eGFR POCT 60 60 ml/min [facility] POCT TESTING Blood BLOOD SPECIMEN / Unknown 08/07/2019 10:56 AM CDT Ankit Mayorga MD LAB - POINT OF CAR E ORDERABLES [facility] POCT TESTING [address] [phone] * XR KNEE RIGHT 3VW (06/11/2018 3:52 PM MINING MACHINERY ASSEMBLER) Anatomical Region Laterality Modality Lower Extremity Computed Radiogr aphy Narrative 06/11/2018 5:33 PM MINING MACHINERY ASSEMBLER Deb Aponte, RT(R) 06/11/2018 5:33 PM See progress notes for results Lorie Corrigan PA-C DIAGNOSTIC IM AGING ORDERABLES * NEURAXIAL BLOCK (05/07/2018 8:16 AM MINING MACHINERY ASSEMBLER) Narrative Bob Clemente MD - 05/07/2018 8:16 AM MINING MACHINERY ASSEMBLER Nasim Kaye, CRYPTOGRAPHY TEACHER-CHIEF CONTRACT OFFICER 04/30/2018 10:34 AM Neuraxial Block Note Procedure Name: Neuraxial Block Patient Location: OR Pre-Procedure: Indications: surgical anesthesia Pre-Anesthetic Checklist: Patient identified, IV Checked, Risks and benefits discussed, Surgical consent verified, Monitors and equipment, Site examined, Pre-op evaluation done, Informed consent obtained, Questions answered/anesthesia questions answered and Allergies reviewed Anticoagulation/ Anti-thrombosis status confirmed? Yes Supplemental O2: room air Monitors: BP and continuous pluse ox Patient Condition: sedated, meaningful contact maintained throughout procedure Sedation Type: mild Sedation Agents: versed, fentanyl Procedure: Block Type: Spinal Prep: Betadine Sterile Field: mask, cap/hat, sterile established and sterile gloves Approach: midline Skin localized with: lidocaine 1% 1 mL Spinal Block: Needle Type: beveled Needle Gauge: 22 Needle Length: 90 mm Placement Site: L3-4 Number of Attempts: 1 CSF: free flow, aspiration before injection Spinal Local Anesthetic: Bupivacaine: 2 mL of 0.75% in dextrose Degree of difficulty: none Procedure Tolerance: tolerated well Sensory Level: T8 Motor Blockade: Yes Position post procedure: supine Vital Signs: Vital sings monitored and stable throughout. See anesthesia record for details. Staff: Anesthesia Provider: NASIM KAYE performed the procedure Bob Clemente MD GENERAL ANESTHESIA O RDERABLES * (ABNORMAL) HGB HCT PANEL (05/02/2018 4:59 AM MINING MACHINERY ASSEMBLER) Only the most recent of2 resultswithin the time period is included. [facility] Signature Hemoglobin 11.6(L) 12.0 - 15.6 gm/dL 05/02/2018 6:13 AM MINING MACHINERY ASSEMBLER [facility] Hematocrit 37.2 35.9 - 45.5 % 05/02/2018 6:13 AM MINING MACHINERY ASSEMBLER [facility] Blood BLOOD SPECIMEN / Unknown Venipuncture / Unknown 05/02/2018 4:59 AM MINING MACHINERY ASSEMBLER 05/02/2018 5:58 AM MINING MACHINERY ASSEMBLER Alix Mckenna MD LAB - HEMATOLOGY ORD ERABLES [facility] [address] [place] [address] * EKG 12-LEAD (04/12/2018 3:04 PM MINING MACHINERY ASSEMBLER) Ventricular Rate 73 BPM [facility] Atrial Rate 73 BPM [facility] P-R Interval 142 ms [facility] QRS Duration ms 68 ms [facility] Q-T Interval ms 376 ms [facility] QTC Calculation (Bezet) 414 ms [facility] Calculated P [place] 51 degrees [facility] Calculated R [place] 8 degrees [facility] Calculated T [place] 46 degrees [facility] Interpretation EKG Sinus rhythm with occasional Premature ventricular complexes Nonspecific ST and T wave abnormality Abnormal ECG No previous ECGs available Confirmed by Liang Avalos ([id number]) on 04/13/2018 10:06:46 AM [facility] 04/12/2018 3:04 PM MINING MACHINERY ASSEMBLER 04/13/2018 10:06 AM MINING MACHINERY ASSEMBLER Alix Mckenna MD ECG ORDERABLES Performing Organization Address [facility] Co de Phone Number [facility] * CULTURE MSSA/MRSA (04/12/2018 2:15 PM MINING MACHINERY ASSEMBLER) Pathologist [facility] Culture Negative for Staphylococcus aureus (MRSA/MSSA) SYBIL 04/14/2018 7:43 AM MINING MACHINERY ASSEMBLER [facility] MICROBIOLOGY Microbiology SPECIMEN FROM NASAL FOSSAE / Unknown Collection / Unknown 04/12/2018 2:15 PM MINING MACHINERY ASSEMBLER 04/12/2018 2:41 PM MINING MACHINERY ASSEMBLER Alix Mckenna MD LAB - MICROBIOLOGY O RDERABLES Performing Organization Address [facility] Co de Phone Number [facility] [address] [place] [phone] * (ABNORMAL) CBC W AUTO DIFFERENTIAL (04/12/2018 2:15 PM MINING MACHINERY ASSEMBLER) Only the most recent of5 resultswithin the time period is included. WBC 6.9 4.4 - 10.7 x10E9/L 04/12/2018 2:50 PM MINING MACHINERY ASSEMBLER [facility] WBC Corrected x10E9/L 04/12/2018 2:50 PM MINING MACHINERY ASSEMBLER [facility] RBC 5.07 3.80 - 5.20 x10E12/L 04/12/2018 2:50 PM MINING MACHINERY ASSEMBLER [facility] Hemoglobin 13.3 12.0 - 15.6 gm/dL 04/12/2018 2:50 PM MINING MACHINERY ASSEMBLER [facility] Hematocrit 42.5 35.9 - 45.5 % 04/12/2018 2:50 PM MINING MACHINERY ASSEMBLER [facility] MCV 83.8 80.7 - 98.3 fl 04/12/2018 2:50 PM [facility] MCH 26.2(L) 26.7 - 34.0 pg 04/12/2018 2:50 PM [facility] MCHC 31.3 30.8 - 35.9 gm/dL 04/12/2018 2:50 PM [facility] Platelet Count 173 153 - 416 x10E9/L 04/12/2018 2:50 PM [facility] RDW-CV 13.8 12.1 - 14.9 % 04/12/2018 2:50 PM [facility] MPV 10.2 9.4 - 12.9 fl 04/12/2018 2:50 PM [facility] Neutrophils % 61.0 44.0 - 73.0 % 04/12/2018 2:50 PM [facility] Lymphocytes % 29.1 20.0 - 43.0 % 04/12/2018 2:50 PM [facility] Monocytes % 7.0 5.0 - 13.0 % 04/12/2018 2:50 PM [facility] Eosinophils % 1.9 0.0 - 6.0 % 04/12/2018 2:50 PM [facility] Basophils % 0.6 0.0 - 2.0 % 04/12/2018 2:50 PM [facility] Immature Granulocytes 0.4 0 - 1 % 04/12/2018 2:50 PM [facility] Neutrophil Absolute 4.18 2.01 - 7.14 x10E9/L 04/12/2018 2:50 PM [facility] Lymphocytes Absolute 1.99 1.07 - 3.94 x10E9/L 04/12/2018 2:50 PM MINING MACHINERY ASSEMBLER [facility] Monocytes Absolute 0.48 0.26 - 1.07 x10E9/L 04/12/2018 2:50 PM [facility] Eosinophils Absolute 0.13 0 - 0.47 x10E9/L 04/12/2018 2:50 PM [facility] Basophils Absolute 0.04 0 - 0.08 x10E9/L 04/12/2018 2:50 PM MINING MACHINERY ASSEMBLER [facility] Immature Granulocytes Absolute 0.03 0.00 - 0.06 x10E9/L 04/12/2018 2:50 PM [facility] nRBC Auto 0 /100 WBC 04/12/2018 2:50 PM [facility] Blood BLOOD SPECIMEN / Unknown Venipuncture / Unknown 04/12/2018 2:15 PM MINING MACHINERY ASSEMBLER 04/12/2018 2:41 PM MINING MACHINERY ASSEMBLER Alix Mckenna MD LAB - HEMATOLOGY ORD ERABLES [facility] [address] [place] [address] * (ABNORMAL) COMPREHENSIVE METABOLIC PANEL (04/12/2018 2:15 PM MINING MACHINERY ASSEMBLER) Only the most recent of3 resultswithin the time period is included. Glucose 98 74 - 106 mg/dL 04/12/2018 3:03 PM [facility] Sodium 137 136 - 145 mmol/L 04/12/2018 3:03 PM [facility] Potassium 4.2 3.5 - 5.1 mmol/L 04/12/2018 3:03 PM [facility] Chloride 104 98 - 107 mmol/L 04/12/2018 3:03 PM [facility] CO2 30 22 - 31 mmol/L 04/12/2018 3:03 PM [facility] Calcium 8.4(L) 8.5 - 10.1 mg/dL 04/12/2018 3:03 PM [facility] Anion Gap 3(L) 8 - 16 mmol/L 04/12/2018 3:03 PM [facility] BUN 20 7 - 21 mg/dL 04/12/2018 3:03 PM [facility] Creatinine 0.88 0.50 - 1.30 mg/dL 04/12/2018 3:03 PM [facility] Alkaline Phosphatase 75 38 - 126 U/L 04/12/2018 3:03 PM [facility] ALT 23 13 - 61 U/L 04/12/2018 3:03 PM [facility] AST 12 5 - 40 U/L 04/12/2018 3:03 PM [facility] Protein Total 6.9 6.4 - 8.2 gm/dL 04/12/2018 3:03 PM MINING MACHINERY ASSEMBLER [facility] Albumin 3.5 3.4 - 5.0 gm/dL 04/12/2018 3:03 PM MINING MACHINERY ASSEMBLER [facility] Bilirubin Total 0.2 0.2 - 1.0 mg/dL 04/12/2018 3:03 PM MINING MACHINERY ASSEMBLER [facility] eGFR by MDRD >60 >60 mL/min/1.7 3m2 04/12/2018 3:03 PM MINING MACHINERY ASSEMBLER [facility] eGFR by MDRD >60 >60 mL/min/1.7 3m2 04/12/2018 3:03 PM MINING MACHINERY ASSEMBLER [facility] Blood BLOOD SPECIMEN / Unknown Venipuncture / Unknown 04/12/2018 2:15 PM MINING MACHINERY ASSEMBLER 04/12/2018 2:41 PM MINING MACHINERY ASSEMBLER Alix Mckenna MD LAB - CHEMISTRY ANDI VILLEDA [facility] [address] [place] [address] * CT ABDOMEN PELVIS W CONTRAST (03/10/2017 2:25 PM MINING MACHINERY ASSEMBLER) Anatomical Region Laterality Modality Abdomen, Pelvis Other Impressions 03/10/2017 2:33 PM MINING MACHINERY ASSEMBLER IMPRESSION: 1. No acute process identified in the abdomen or pelvis. Dictated by Michael Ladd MD ([employer]). IDr. Reji M.D. have personally reviewed and interpreted this examination/study. This report was electronically signed by Reji KHAN M.D. on 03/10/2017 2:33 PM . Narrative 03/10/2017 2:33 PM MINING MACHINERY ASSEMBLER EXAMINATION: Computed tomography (CT) of the abdomen and pelvis with contrast HISTORY: History of constipation, concern for ileus versus partial small bowel obstruction on radiograph TECHNIQUE: CT of the abdomen and pelvis was performed following the uneventful administration of 100 mL of Omnipaque 350 intravenous contrast according to standard protocol. COMPARISON: No prior study is available for comparison. FINDINGS: The aorta is normal in course and caliber. The visible lung bases are clear. The heart size is normal without pericardial effusion. The liver enhances homogenously. The gallbladder is surgically absent. The intrahepatic and extrahepatic bile ducts are nondilated. A subcentimeter hypodense focus in the inferior spleen is too small to characterize. Otherwise, the spleen enhances homogenously. The pancreas and adrenal glands are normal. Other than a 6.4 cm cyst on the left, the kidneys enhance symmetrically. There is no evidence of renal calculus or hydronephrosis. The distal esophagus and stomach appear normal. The sigmoid colon is redundant. The small bowel and large bowel are normal in caliber without evidence of wall thickening or obstruction. The appendix appears normal without appendicolith or surrounding inflammatory changes. No free air or free fluid is identified within the abdomen. There is no abdominal lymphadenopathy. The urinary bladder is distended with fluid and appears normal. The uterus is absent. No free fluid is seen within the pelvis. There is no pelvic lymphadenopathy. Bone windows demonstrate no suspicious lytic or blastic lesions. The visible osseous structures are intact. Multilevel degenerative changes are noted in the spine. Procedure Note Dea Khan MD - 07/07/2017 EXAMINATION: Computed tomography (CT) of the abdomen and pelvis withcontrast HISTORY: History of constipation, concern for ileus versus partial smallbowel obstruction on radiograph TECHNIQUE: CT of the abdomen and pelvis was performed following theuneventful administration of 100 mL of Omnipaque 350 intravenous contrastaccording to standard protocol. COMPARISON: No prior study is available for comparison. FINDINGS: The aorta is normal in course and caliber. The visible lung bases are clear. The heart size is normal withoutpericardial effusion. The liver enhances homogenously. The gallbladder is surgically absent. Theintrahepatic and extrahepatic bile ducts are nondilated. A subcentimeterhypodense focus in the inferior spleen is too small to characterize.Otherwise, the spleen enhances homogenously. The pancreas and adrenal glands are normal. Other than a 6.4cm cyst on the left, the kidneys enhance symmetrically. There is noevidence of renal calculus or hydronephrosis. The distal esophagus and stomach appear normal. The sigmoid colon isredundant. The small bowel and large bowel are normal in caliber withoutevidence of wall thickening or obstruction. The appendix appears normalwithout appendicolith or surrounding inflammatory changes. No free air or free fluid is identified within theabdomen. There is no abdominal lymphadenopathy. The urinary bladder is distended with fluid and appears normal. The uterusis absent. No free fluid is seen within the pelvis. There is no pelviclymphadenopathy. Bone windows demonstrate no suspicious lytic or blastic lesions. Thevisible osseous structures are intact. Multilevel degenerative changes arenoted in the spine. IMPRESSION IMPRESSION: 1. No acute process identified in the abdomen or pelvis. Dictated by Michael Ladd MD (president [employer]). IDr. Reji M.D. have personally reviewed and interpreted thisexamination/study. This report was electronically signed by Reji KHAN M.D. on03/10/2017 2:33 PM . Gaurav Boudreaux MD CT ORDERABLES * (ABNORMAL) URINALYSIS REFLEX TO MICROSCOPIC NO CULTURE (03/10/2017 12:04 PM MINING MACHINERY ASSEMBLER) Color UA Yellow Straw, Yellow, Colorless, Light Yellow [facility] Clarity UA Clear Clear [facility] Specific [place] UA 1.005 1.001 - 1.030 [facility] pH UA 6.5 5.0 - 8.0 [facility] Protein UA Negative <=20 mg/dL [facility] Glucose UA Negative Negative mg/dL [facility] Ketone UA Negative Negative mg/dL [facility] Bilirubin UA Negative Negative mg/dL [facility] Blood UA Trace(A) Negative [facility] Nitrite UA Negative Negative [facility] Leukocyte Esterase Negative Negative [facility] Urobilinogen UA <2.0 <2.0 mg/dL [facility] RBC UA 1 0 - 8 /HPF [facility] WBC UA <1 0 - 2 /HPF [facility] Urine specimen (specimen) 03/10/2017 12:04 PM MINING MACHINERY ASSEMBLER 03/10/2017 12:16 PM MINING MACHINERY ASSEMBLER Javon Disla MD LAB - URINALYSIS ORD ERABLES [address] [phone] * XR ABD OBSTRUCTION SERIES 2VW (03/10/2017 12:00 PM MINING MACHINERY ASSEMBLER) Anatomical Region Laterality Modality Abdomen Other Impressions 03/10/2017 1:17 PM MINING MACHINERY ASSEMBLER Impression: Multiple mildly dilated loops of small bowel with air-fluid levels may represent an ileus versus partial small bowel obstruction. Dictated by Robbin Mireles MD (Resident) Dr. MAKEDA Mata M.D. have personally reviewed and interpreted this examination/study. This report was electronically signed by MAKEDA MORA M.D. on 03/10/2017 1:17 PM . Narrative 03/10/2017 1:17 PM MINING MACHINERY ASSEMBLER Exam: XR ABD OBSTRUCTION SERIES Date: 03/10/2017 12:00 PM History: constipation Comparison: No prior studies are available for comparison at the time of this dictation. Findings: Cholecystectomy clips overlie the right upper quadrant. Gas and stool is seen in the colon. Multiple mildly dilated loops of small bowel are present with a few air- fluid levels seen on the upright exam. No pneumoperitoneum is seen on the upright view. Procedure Note Makeda Mora MD - 07/07/2017 Exam: XR ABD OBSTRUCTION SERIES Date: 03/10/2017 12:00 PM History: constipation Comparison: No prior studies are available for comparison at the time ofthis dictation. Findings: Cholecystectomy clips overlie the right upper quadrant. Gas and stool isseen in the colon. Multiple mildly dilated loops of small bowel arepresent with a few air- fluid levels seen on the upright exam. Nopneumoperitoneum is seen on the upright view. IMPRESSION Impression: Multiple mildly dilated loops of small bowel with air-fluid levels mayrepresent an ileus versus partial small bowel obstruction. Dictated by Robbin Mireles MD (Resident) Dr. MAKEDA Mata M.D. have personally reviewed and interpretedthis examination/study. This report was electronically signed by MAKEDA MORA M.D. on03/10/2017 1:17 PM . Javon Disla MD DIAGNOSTIC IMAGING O RDERABLES * CT US GUIDED NEEDLE PLACEMENT (08/29/2013 10:48 AM CDT) Anatomical Region Laterality Modality Other Impressions 08/30/2013 7:07 PM CDT Impression: Successful aspiration of left upper pole cyst with approximately 200 mL of clear venkatesh fluid sent for appropriate labs. Reported dictated by Ramiro Khalil MD (president [employer]). The attending physician, Dr Marte, was present for the entire procedure. This report was approved by Ramiro Khalil M.D. on 08/29/2013 7:22 PM . I, Dr. RENETTA MARTE M.D. have personally reviewed and interpreted this examination/study. This report was electronically signed by RENETTA MARTE M.D. on 08/30/2013 7:07 PM . Narrative 08/30/2013 7:07 PM CDT Ultrasound-guided renal cyst aspiration History: Symptomatic subcapsular left renal cyst measuring 6.6 cm in diameter for aspiration. Radiologist: 1. Dr. Marte, attending radiologist, 2. Dr. Khalil, resident radiologist Anesthesia: 1. Local anesthesia with 10 mL lidocaine Procedure in detail: The risks, benefits and alternatives of the procedure were discussed with the patient and informed consent was obtained. The patient was taken to the procedure room and placed in the prone position. The left upper pole cyst was imaged with ultrasound and site of entry was marked. The patient was prepped and draped in sterile fashion. Local anesthesia was provided with 1 percent lidocaine. The left upper pole cyst was accessed using a 5 [place] coaxial system. Aspiration yielded approximately 200 mL of venkatesh serous fluid. Postprocedure imaging demonstrated no immediate capitation and collapse of the cyst. Appropriate amount of fluid was sent for labs. The patient tolerated the procedure well and was sent back to the holding area. Procedure Note Renetta Marte MD - 07/08/2017 Ultrasound-guided renal cyst aspiration History: Symptomatic subcapsular left renal cyst measuring 6.6 cm indiameter for aspiration. Radiologist: 1. Dr. Marte, attending radiologist, 2. Dr. Khalil, resident radiologist Anesthesia: 1. Local anesthesia with 10 mL lidocaine Procedure in detail: The risks, benefits and alternatives of the procedure were discussed withthe patient and informed consent was obtained. The patient was taken tothe procedure room and placed in the prone position. The left upper polecyst was imaged with ultrasound and site of entry was marked. The patient was prepped and draped in sterilefashion. Local anesthesia was provided with 1 percent lidocaine. The left upper pole cyst was accessed using a 5 Kuwaiti coaxial system.Aspiration yielded approximately 200 mL of venkatesh serous fluid.Postprocedure imaging demonstrated no immediate capitation and collapse ofthe cyst. Appropriate amount of fluid was sent for labs. The patient tolerated the procedure well and was sent backto the holding area. IMPRESSION Impression: Successful aspiration of left upper pole cyst with approximately 200 mL ofclear venkatesh fluid sent for appropriate labs. Reported dictated by Ramiro Khalil MD (president consumer electronics company). The attending physician, Dr Marte, was present for the entireprocedure. This report was approved by Ramiro Khalil M.D. on 08/29/2013 7:[address] RENETTA Mata M.D. have personally reviewed and interpreted thisexamination/study. This report was electronically signed by RENETTA MARTE M.D. on08/30/2013 7:07 PM . Amilcar Retana MD CT ORDERABLE S * CT GUIDED NEEDLE PLACEMENT (08/29/2013 10:48 AM CDT) Anatomical Region Laterality Modality Abdomen Other Impressions 08/30/2013 7:07 PM CDT Impression: Successful aspiration of left upper pole cyst with approximately 200 mL of clear venkatesh fluid sent for appropriate labs. Reported dictated by Ramiro Khalil MD (president consumer electronics company). The attending physician, Dr Marte, was present for the entire procedure. This report was approved by Ramiro Khalil M.D. on 08/29/2013 7:22 PM . Adolfo, Dr. RENETTA MARTE M.D. have personally reviewed and interpreted this examination/study. This report was electronically signed by RENETTA MARTE M.D. on 08/30/2013 7:07 PM . Narrative 08/30/2013 7:07 PM CDT Ultrasound-guided renal cyst aspiration History: Symptomatic subcapsular left renal cyst measuring 6.6 cm in diameter for aspiration. Radiologist: 1. Dr. aMrte, attending radiologist, 2. Dr. Khalil, resident radiologist Anesthesia: 1. Local anesthesia with 10 mL lidocaine Procedure in detail: The risks, benefits and alternatives of the procedure were discussed with the patient and informed consent was obtained. The patient was taken to the procedure room and placed in the prone position. The left upper pole cyst was imaged with ultrasound and site of entry was marked. The patient was prepped and draped in sterile fashion. Local anesthesia was provided with 1 percent lidocaine. The left upper pole cyst was accessed using a 5 Kuwaiti coaxial system. Aspiration yielded approximately 200 mL of venkatesh serous fluid. Postprocedure imaging demonstrated no immediate capitation and collapse of the cyst. Appropriate amount of fluid was sent for labs. The patient tolerated the procedure well and was sent back to the holding area. Procedure Note Renetta Marte MD - 07/08/2017 Ultrasound-guided renal cyst aspiration History: Symptomatic subcapsular left renal cyst measuring 6.6 cm indiameter for aspiration. Radiologist: 1. Dr. Marte, attending radiologist, 2. Dr. Khalil, resident radiologist Anesthesia: 1. Local anesthesia with 10 mL lidocaine Procedure in detail: The risks, benefits and alternatives of the procedure were discussed withthe patient and informed consent was obtained. The patient was taken tothe procedure room and placed in the prone position. The left upper polecyst was imaged with ultrasound and site of entry was marked. The patient was prepped and draped in sterilefashion. Local anesthesia was provided with 1 percent lidocaine. The left upper pole cyst was accessed using a 5 Kuwaiti coaxial system.Aspiration yielded approximately 200 mL of venkatesh serous fluid.Postprocedure imaging demonstrated no immediate capitation and collapse ofthe cyst. Appropriate amount of fluid was sent for labs. The patient tolerated the procedure well and was sent backto the holding area. IMPRESSION Impression: Successful aspiration of left upper pole cyst with approximately 200 mL ofclear venkatesh fluid sent for appropriate labs. Reported dictated by Ramiro Khalil MD (president consumer electronics company). The attending physician, Dr Marte, was present for the entireprocedure. This report was approved by Ramiro Khalil M.D. on 08/29/2013 7:22 PM . I, Dr. RENETTA MARTE M.D. have personally reviewed and interpreted thisexamination/study. This report was electronically signed by RENETTA MARTE M.D. on08/30/2013 7:07 PM . Amilcar Retana MD CT ORDERABLE S * CYTOLOGY NON-SULFUR BURNER PANEL (STL) (08/29/2013 10:27 AM CDT) Cytology Non-Power And Recovery Shift Engineer Reference: [id number] Specimen: RENAL, CYST, LEFT Clinical History: Renal cyst Gross Description: 150cc yellow clear fluid Preparation Method: 1 cytospin pap stained slide, 1 cytospin diff-quik stained slide, 1 cell block l SPECIMEN ADEQUACY: - SATISFACTORY FOR EVALUATION FINAL DIAGNOSIS: KIDNEY, LEFT, CYST, US-GUIDED FNA: - NEGATIVE FOR MALIGNANCY MICROSCOPIC DESCRIPTION: Microscopic review shows macrophages and lymphocytes. No malignancy is seen. The cell block consists mainly of fibrin and red blood cells and is noncontributory . The history is reviewed. ES/EE COMMENT(S): The attending pathologist has reviewed all slides in this case. This case has been personally reviewed and interpreted by the attending (teaching) pathologist. Initial Evaluation performed by Farhana LENTZ(ASC). Electronically signed 08/30/2013 Final Diagnosis performed by Jeff Cartagena MD. Electronically signed 08/30/2013 [facility] ([facility]) Other (qualifier value) 08/29/2013 10:27 AM CDT 08/29/2013 2:21 PM CDT Narrative [facility] ([facility]) - 08/30/2013 4:44 PM CDT Diagnosis->renal cyst Collection Date->08/29/13 Collection Time->10:20 AM Specimen A->Fine Needle Aspirate Left Renal Cyst Renetta Marte MD LAB - PATHOLOGY/CYTO LOGY ORDERABLES [facility] ([facility]) * PTT [facility] (08/29/2013 8:55 AM CDT) APTT 25.4 23.0 - 38.4 Seconds [facility] Comment:Suggested therapeuti c range for full dose I.V. heparin therapy for venous thromboembolism is 66.0-91.0 seconds. Blood specimen (specimen) BLOOD SPECIMEN / Unknown 08/29/2013 8:55 AM CDT 08/29/2013 9:01 AM CDT Narrative [facility] - 08/29/2013 9:34 AM CDT Is patient on Heparin, Argatroban or Dabigatran?->N Renetta Marte MD LAB - COAGULATION OR DERABLES Performing Organization Address [facility]/ZIP Co de Phone Number [address] [phone] * PT-INR [facility] (08/29/2013 8:55 AM CDT) PT 12.9 12.1 - 14.8 Seconds [facility] INR 1.0 See Comment [facility] Comment: Suggested therapeutic range for low-intensity coumadin therapy for venous thromboembolism prophylaxis is an INR of 2.0-3.0. For high risk patients (Mitral Valve Prosthesis, Atrial Fibrillation, history of TIA/stroke), suggested prophylactic therapeutic range is an INR of 2.5-3.5. Blood specimen (specimen) BLOOD SPECIMEN / Unknown 08/29/2013 8:55 AM CDT 08/29/2013 9:01 AM CDT Narrative [facility] - 08/29/2013 9:34 AM CDT Is patient on Heparin, Argatroban or Dabigatran?->N Renetta Marte MD LAB - COAGULATION OR DERABLES Performing Organization Address City/[facility]/ZIP Co de Phone Number [address] [phone] * (ABNORMAL) URINALYSIS AUTO - POINT OF CARE (AMB) [facility] (08/15/2013) Only the most recent of2 resultswithin the time period is included. Glucose UA neg [facility] Bilirubin UA POCT neg [facility] Ketones UA POCT neg [facility] Specific [place] UA 1.025 [facility] Blood Urine POCT 25Ery/uL( A) [facility] pH UA 6.0 [facility] Protein UA 0.15g/L(A ) [facility] Urobilinogen UA 3.5 [facility] Nitrite UA neg [facility] WBC UA neg [facility] Urine specimen (specimen) 08/15/2013 Amilcar Retana MD LAB - POINT OF CARE ORDERABLES [facility] * RETROPERITONEAL COMPLETE (11/18/2011 3:28 PM CDT) Anatomical Region Laterality Modality Abdomen Other Impressions 11/18/2011 4:10 PM CDT Impression: No hydronephrosis or calculus. Left renal cyst. Report dictated by Brandon Butts M.D. (resident). I, Dr. Andre Horne, have personally reviewed and interpreted this examination. Narrative 11/18/2011 4:10 PM CDT Retroperitoneal ultrasound Nov 18, 2011 2:30:59 PM History: IRRITABLE BOWEL SYNDROME ABDOMEN PAIN Technique: Real time and color-flow Doppler ultrasound of the kidneys Findings: Right kidney: 11.1 x 4.6 x 4.4 cm Left kidney: 12.1 x 4.5 x 4.3. cm The renal parenchymal echogenicity is normal. There is a 6.6 x 5.5 x 5.8 cm simple cyst extending off of the upper pole of the left kidney. No hydronephrosis, calculus or solid renal mass is present. The renal arteries and veins are patent. The bladder is imaged in a partially distended state. Procedure Note Andre Horne MD - 07/09/2017 Retroperitoneal ultrasound Nov 18, 2011 2:30:59 PM History: IRRITABLE BOWEL SYNDROME ABDOMEN PAIN Technique: Real time and color-flow Doppler ultrasound of the kidneys Findings: Right kidney: 11.1 x 4.6 x 4.4 cm Left kidney: 12.1 x 4.5 x 4.3. cm The renal parenchymal echogenicity is normal. There is a 6.6 x 5.5 x 5.8cm simple cyst extending off of the upper pole of the left kidney. Nohydronephrosis, calculus or solid renal mass is present. The renalarteries and veins are patent. The bladder is imaged in a partially distended state. IMPRESSION Impression: No hydronephrosis or calculus. Left renal cyst. Report dictated by Brandon Butts M.D. (resident). I, Dr. Andre Horne, have personally reviewed and interpreted thisexamination. Nataliia Page MD US ORDERABLES * US ABDOMEN LIMITED (11/18/2011 3:28 PM CDT) Anatomical Region Laterality Modality Abdomen Other Impressions 11/18/2011 4:09 PM CDT Impression: No discrete liver lesion or biliary dilation. Patent hepatic vasculature. Report dictated by Brandon Butts M.D. (resident). I, Dr. Andre Horne, have personally reviewed and interpreted this examination. Narrative 11/18/2011 4:09 PM CDT Abdominal ultrasound limited Nov 18, 2011 2:31:01 PM History: IRRITABLE BOWEL SYNDROME ABDOMEN PAIN Findings: The contour and echotexture of the liver are normal. The liver is free of discrete mass or biliary dilation. The gallbladder is absent. Only the proximal portion of the common duct is visualized. This portion is not dilated and measures 4 mm. The distal portion of the common duct is not visualized due to bowel gas. The pancreas demonstrates normal echogenicity in the visualized portions. The right kidney measures 10.1 cm. Limited evaluation the right kidney fails to demonstrate hydronephrosis or calculus. The hepatic veins and main portal vein are patent. Procedure Note Andre Horne MD - 07/09/2017 Abdominal ultrasound limited Nov 18, 2011 2:31:01 PM History: IRRITABLE BOWEL SYNDROME ABDOMEN PAIN Findings: The contour and echotexture of the liver are normal. The liver is free ofdiscrete mass or biliary dilation. The gallbladder is absent. Only the proximal portion of the common duct isvisualized. This portion is not dilated and measures 4 mm. The distalportion of the common duct is not visualized due to bowel gas. The pancreas demonstrates normal echogenicity in the visualizedportions. The right kidney measures 10.1 cm. Limited evaluation the right kidneyfails to demonstrate hydronephrosis or calculus. The hepatic veins and main portal vein are patent. IMPRESSION Impression: No discrete liver lesion or biliary dilation. Patent hepatic vasculature. Report dictated by Brandon Butts M.D. (resident). I, Dr. Andre Horne, have personally reviewed and interpreted thisexamination. Nataliia Page MD US ORDERABLES * PATHOLOGY REPORTS - HPF HISTORICAL (11/18/2011 8:26 AM CDT) Only the most recent of2 resultswithin the time period is included. 11/18/2011 8:26 AM CDT Narrative [facility] - 11/18/2011 8:26 AM CDT Historical Provider LAB - PATHOLOGY/C YTOLOGY ORDERABLES Performing Organization Address [facility] Co de Phone Number [place] [phone] [address] * PATHOLOGY TISSUE (10/30/2011 4:26 PM CDT) Only the most recent of2 resultswithin the time period is included. 10/30/2011 4:26 PM CDT Narrative [facility] - 10/30/2011 4:26 PM CDT PATIENT HISTORY: Past Medical History: Anxiety Constipation Hypertension Heartburn Obstructive sleep apnea Arthritis Mental disorder Depression Chronic kidney disease Comment:cyst, blocked ureter Community acquired pneumonia HX OTHER MEDICAL Comment:gall bladder PONV (postoperative nausea and vomiting) Sleep apnea PRE-OP DIAGNOSIS: IRREGULAR STOOL SIZE OPERATIVE PROCEDURE / FINDINGS: COLON W/ BIOPSY - 1. Ascending colon polyp (biopsy) POST-OP DIAGNOSIS: * No post-op diagnosis entered * Collection Date->10/26/11 Collection Time-> 2:14 PM Specimen A->Colon 1 mm ascending colon polyp,1 mm, resected Drew Peguero MD LAB - PATHOLOGY/CYTO LOGY ORDERABLES Performing Organization Address [facility] Co de Phone Number [place] [phone] [address] * PATHOLOGY/GENETICS HISTORICAL-ONBASE (04/26/2010) 04/26/2010 Historical Provider LAB - CHEMISTRY O RDERABLES Performing Organization Address [facility] Co de Phone Number [facility] * HLA - HPF HISTORICAL REPORTS (08/27/2008 9:22 AM CDT) 08/27/2008 9:22 AM CDT Narrative [facility] - 08/27/2008 9:22 AM CDT Venessa Reardon MD LAB - PATHOLOGY/CYT OLOGY ORDERABLES [facility] Care Teams Seat Installer Relationship Specialty Start Date End Date Ryan Minor DO [address] [place] [address] PCP - General 07/02/19
--- OUTSIDE RECORDS SUMMARY | 2024-06-21 10:50 | XMS_ITS | Clinical Summary ---
Author Organization [facility] [employer] Address [address] [place] [address] Care Team Providers Care [employer] Consultant Name Role Phone Ryan Minor DO Primary Care Provider [phone] Source Comments [facility] [employer],non-owned Affiliates and Associated Physician Practices is amultiple site organization consisting of ambulatory clinics and hospital sitesin [place], [place], [place] and [place]. This disclosure is being madepursuant to the Care Everywhere program and may not contain all information available regarding this patient. Last updated 17.[facility] [employer] Allergies Active Allergy Reactions Criticality Noted Date Comments Elliott Other Low 08/18/2010 PT DENIES THIS ALLERGY/ Achy joints, Achy joints, Achy joints Medications * Be aware that medications may not be up to date on this document. Alwaysverify current medications with the patient. Medication Sig Dispensed Refills Start Date End Date Status venlafaxine XR 24hr (EFFEXOR XR) 150 MG capsule Take 1 capsule by mouth once daily 0 01/03/2018 Active traZODone (DESYREL) 150 MG tablet Take 1 tablet by mouth at bedtime 1 12/26/2017 Active busPIRone (BUSPAR) 15 MG tablet Take 15 mg by mouth at bedtime Active clonazePAM (KLONOPIN) 1 MG tablet TAKE 1 TABLET BY MOUTH THREE TIMES DAILY NEEDED FOR INSOMNIA 06/29/2021 Active rOPINIRole (REQUIP) 1 MG tablet 05/24/2021 Active fluticasone propionate (FLONASE) 50 MCG/ACT nasal sprayIndications:Aller gic rhinitis, unspecified seasonality, unspecified trigger [place] 2 (two) sprays into each nostril once daily 48 g 4 08/20/2021 Active LINZESS 290 MCG capsule 08/15/2021 Active Active Problems Problem Noted Date Diagnosed Date Knee joint replacement by other means 04/30/2018 Primary osteoarthritis of right knee 02/13/2018 Other constipation 06/18/2014 Overview (07/10/2017): 05/2008 - Normal colonoscopy 11/25/11 - Flex Sig - Sm internal hemorrhoids. ARM recommended. 12/25/13 - Trial of linzess, continued to have sxs 06/2014-Trial of Amitiza Other microscopic hematuria 07/15/2013 Acquired cyst of kidney 07/15/2013 Essential (primary) hypertension 11/18/2011 Obstructive sleep apnea 08/19/2010 Overview (07/10/2017): AHI 63 in July 2009. CPAP = 8 cm June 2010 DME is [facility] Osteoarthritis 08/05/2010 Major depressive disorder, single episode 2010 Other fatigue 08/05/2010 Anxiety disorder 08/05/2010 Hypersomnia 08/05/2010 Hypothyroidism 08/05/2010 Immunizations Name Administration Dates Next Due INFLUENZA VACCINE, TRIV. (AF LURIA, FLUZONE TRIVALENT; 6MO+) (IIV3) 04/10/2010 INFLUENZA VACCINE, QUADR. (F LUZONE; FLULAVAL; FLUARIX; AFLURIA QUADRIVALENT; 6MO+), 0.5 ML (IIV4) 05/01/2018 Family History Medical History Relation Name Comments Asthma Father CAD (Coronary Artery Disease) Father Cancer Father Heart Failure Mother High Cholesterol Mother Hypertension Mother Obesity Mother Migraine Sister Relation Name Status Comments Father Mother Sister Social History Tobacco Use Types Packs/Day Years [...] Mass Index 30.27 11/29/2021 8:18 AM CDT Plan of Treatment Health Maintenance Due Date Last Done Comments BONE DENSITY TESTING 1950 COLOGUARD (AGES 45-75) - COL ON CA SCREENING 1952 COLON MONITORING 1952 COLONOSCOPY - COLON CA SCREENING 1952 CT COLONOGRAPHY - COLON CA SCREENING 1950 Colorectal Cancer Screening 1952 FIT - COLON CA SCREENING 1952 FLEX SIG - COLON CA SCREENING 1952 LIPID TESTING 1952 MAMMOGRAM 1952 HEPATITIS C SCREENING 02/24/1970 DTAP/TDAP/TD VACCINES (1 - Tdap) 02/28/1971 PNEUMOCOCCAL VACCINE 50+ (1 of 1 - PCV) 02/28/2002 ZOSTER VACCINE (1 of 2) 02/28/2002 Respiratory Syncytial Virus (RSV) Vaccine Pt: or over 60 yrs (1 - Risk 60-74 years 1-dose series) 2012 SCREENING FOR DIABETES 08/20/2021 9, 03/10/2017, 08/29/2013 COVID-19 VACCINE (4 - 2023-2 5 season) 2023 02/05/2021, 06/22/2020, 05/28/2020 INFLUENZA VACCINE (#1) 2023 9, 04/10/2010 DEPRESSION SCREENING 04/10/2024 HEPATITIS B VACCINE Aged Out No longe r eligible based on patient's age to complete this topic HIB VACCINE Aged Out No longer eligi ble based on patient's age to complete this topic HPV VACCINE Aged Out No longer eligi ble based on patient's age to complete this topic MENINGOCOCCAL (Group B) VACCINE SHARED DECISION-MAKING Aged Out No longer eligible based on patient's age to complete this topic MENINGOCOCCAL GROUPS A/C/Y/W VACCINE Aged Out No longer eligible b ased on patient's age to complete this topic Medical Devices Implanted Type Area Petroleum Inspector Supervisor Device Identifier Shelf Expiration Date Model / Serial / Lot Cmnt Bone Cblt 40gm Hvisc Strl Implanted:Qty: 1 on 04/30/2018 by Az Mckenna MD at [facility] Right: Knee [employer] 08/24/2019 [id number] / / [id number] Cmpnt Ptlr 28mm 1 Pg Wire Ascnt Arcm Kn Implanted:Qty: 1 on 04/30/2018 by Az Mckenna MD at [facility] Right: Knee [employer] 04/04/2023 [id number] / / [id number] Cmpnt Fem Kn Rt Cr Cmnt Prm Vngrd Intlk 62.5mm Implanted:Qty: 1 on 04/30/2018 by Az Mckenna MD at [facility] Right: Knee [employer] 02/05/2028 [id number] / / [id number] Tray Tib 71mm Kn Cocr I Beam Implanted:Qty: 1 on 04/30/2018 by Az Mckenna MD at [facility] Right: Knee [employer] 02/10/2028 [id number] / / [id number] Brng [id number] Vngrd Arcm Kn Ant Stab Implanted:Qty: 1 on 04/30/2018 by Az Mckenna MD at [facility] Right: Knee [employer] 01/18/2023 [id number] / / [id number] Lens Iol 0 D +20 Marlo Mod L Bcnvx Acrsf - [id number] Implanted:Qty: 1 on 11/15/2021 by Liam Brito MD at [facility] Left: Eye [employer] 09/19/2026 [id number].200 / [id number] / Lens Iol 0 D +21.5 Marlo Mod L Bcnvx - [id number] Implanted:Qty: 1 on 11/29/2021 by Liam Brito MD at [facility] Right: Eye [employer] 09/25/2026 SN60WF.215 / [id number] / Procedures Procedure Name Priority Date/Time Associated Diagnosis Comments COMPREHENSIVE METABOLIC PANEL Routine 04/12/2018 2:15 PM NEWSPAPER JOURNALIST Preop examination from Last 3 Months or Most Recently Relevant to Health Maintenance Results * (ABNORMAL) COMPREHENSIVE METABOLIC PANEL (04/12/2018 2:15 PM NEWSPAPER JOURNALIST) Glucose 98 74 - 106 mg/dL 04/12/2018 3:03 PM [facility] Sodium 137 136 - 145 mmol/L 04/12/2018 3:03 PM [facility] Potassium 4.2 3.5 - 5.1 mmol/L 04/12/2018 3:03 PM [facility] Chloride 104 98 - 107 mmol/L 04/12/2018 3:03 PM [facility] CO2 30 22 - 31 mmol/L 04/12/2018 3:03 PM NEWSP[employer]ER JOURNA[facility] Calcium 8.4(L) 8.5 - 10.1 mg/dL 04/12/2018 3:03 PM [facility] Anion Gap 3(L) 8 - 16 mmol/L 04/12/2018 3:03 PM [facility] BUN 20 7 - 21 mg/dL 04/12/2018 3:03 PM [facility] Creatinine 0.88 0.50 - 1.30 mg/dL 04/12/2018 3:03 PM [facility] Alkaline Phosphatase 75 38 - 126 U/L 04/12/2018 3:03 PM NEWSPAPER JOURNALIST [facility] ALT 23 13 - 61 U/L 04/12/2018 3:03 PM NEWSPAPER JOURNALIST [facility] AST 12 5 - 40 U/L 04/12/2018 3:03 PM NEWSPAPER JOURNALIST [facility] Protein Total 6.9 6.4 - 8.2 gm/dL 04/12/2018 3:03 PM NEWSPAPER JOURNALIST [facility] Albumin 3.5 3.4 - 5.0 gm/dL 04/12/2018 3:03 PM NEWSPAPER JOURNALIST [facility] Bilirubin Total 0.2 0.2 - 1.0 mg/dL 04/12/2018 3:03 PM NEWSPAPER JOURNALIST [facility] eGFR by MDRD >60 >60 mL/min/1.7 3m2 04/12/2018 3:03 PM NEWSPAPER JOURNALIST [facility] eGFR by MDRD >60 >60 mL/min/1.7 3m2 04/12/2018 3:03 PM NEWSPAPER JOURNALIST [facility] Blood BLOOD SPECIMEN / Unknown Venipuncture / Unknown 04/12/2018 2:15 PM NEWSPAPER JOURNALIST 04/12/2018 2:41 PM NEWSPAPER JOURNALIST Az Mckenna MD LAB - CHEMISTRY ANDI VILL[facility]A [facility] Organization Address City/State/ZIP Co de Phone Number [facility] [address] [place] [phone] from Last 3 Months or Most Recently Relevant to Health Maintenance Advance Directives * Full Code (Latest Code Status on File) Date Activated Date Inactivated Comments 04/30/2018 1:54 PM 05/02/2018 2:43 PM Care Teams [employer] Consultant Relationship Specialty Start Date End Date Ryan Minor DO [address] [place] [address] PCP - General 07/02/19
--- OUTSIDE RECORDS SUMMARY | 2024-06-21 10:50 | XMS_ITS | Clinical Summary ---
Author Organization [facility] Address [address] [place] [address] Care Team Providers Care Pediatric Physician Name Role Phone Ryan Minor DO Primary Care Provider [phone] Social History Tobacco Use Types Packs/Day Years Used Date Smoking Tobacco: Never Assessed Comments Unknown Sex and Gender Information Value Date Recorded Sex Assigned at Not on file Legal Sex Female 2:46 PM CDT Gender Identity Not on file Sexual Orientation Not on file Plan of Treatment Health Maintenance Due Date Last Done Comments Colorectal Cancer Screening Colonoscopy (10 Years) 1950 Hepatitis C 02/28/1970 DTaP, Tdap and Td Vaccines ( 1 - Tdap) 02/28/1971 Mammogram Screening 1992 Zoster Vaccines (1 of 2) 02/28/2002 Dexa Scan (General) 02/28/2017 Pneumococcal Vaccine: 65+ Ye ars (1 of 1 - PCV) 02/28/2017 COVID-19 Vaccine ( - 2023-2 5 season) 2023 Influenza Adult (#1) 2024 RSV Immunization or 60+ Years (1 - 1-dose 75+ series) 02/28/2027 Meningococcal B Vaccine Aged Out No l onger eligible based on patient's age to complete this topic Meningococcal Vaccine Aged Out No maribell hailey eligible based on patient's age to complete this topic RSV Immunizations Under 20 Months Aged Out No longer eligible based on patient's age to complete this topic Insurance [facility]NA [facility] [place] [id number] Care Teams Pediatric Physician Relationship Specialty Start Date End Date Ryan Minor DO [address] [address] PCP - General INTERNAL MEDICINE 07/30/19
--- OUTSIDE RECORDS SUMMARY | 2024-06-21 10:50 | XMS_ITS | Encounter Summary ---
Author Organization [facility] Health Address [address] [facility] [place] [address] Care Team Providers Care Tank Furnace Operator Name Role Phone Ryan Minor DO Primary Care Provider [phone] Encounter Details Date Type Department Care Team (Late st Contact Info) Description 08/30/2021 Telephone [facility] [address] [place] [address] Robbin Yun MD [address] OF PULMONARY/[place] [address] Social History Tobacco Use Types Packs/Day Years [...] encounter Miscellaneous Notes * Telephone Encounter - JeffJulien campbellen - 08/30/2021 2:25 PM CDT Current Provider name:EDGAR Reason for call: Pt would like a call back about her upcoming appoinment this week. She is not clear on what this appointment is exactly. She was under the impression she was having a sleep study. Patient Call Back number: [phone] documented in this encounter Plan of Treatment Not on file documented as of this encounter Visit Diagnoses Not on filedocumented in this encounter Care Teams Tank Furnace Operator Relationship Specialty Start Date End Date Ryan Minor DO [address] [place] [address] PCP - General 07/02/19 documented as of this encounter
--- OUTSIDE RECORDS SUMMARY | 2024-06-21 10:50 | XMS_ITS | Referral Summary ---
Author Organization [facility] Address [address] [place] [address] Care Team Providers Care Castings Trimmer Name Role Phone Ryan Minor DO Primary Care Provider [phone] Source Comments [facility],non-owned Affiliates and Associated Physician Practices is amultiple site organization consisting of ambulatory clinics and hospital sitesin [place], [place], [place] and [place]. This disclosure is being madepursuant to the Care Everywhere program and may not contain all information available regarding this patient. Last updated 17.[facility] Allergies Active Allergy Reactions Criticality Noted Date [...] sprayIndications:Aller gic rhinitis, unspecified seasonality, unspecified trigger [place] 2 (two) sprays into each nostril once [...] AFLURIA QUADRIVALENT; 6MO+), 0.5 ML (IIV4) 05/01/2018 Social History Tobacco Use Types Packs/Day Years [...] Mass Index 30.27 11/29/2021 8:18 AM CDT Functional Status Functional Status Response Date of [...] person have difficulty concentrating/remembering/making decisions? No 04/30/2018 Plan of Treatment Not on file Medical Devices Implanted Type Area Cattle Knocker Device Identifier Shelf Expiration Date Model / Serial / Lot Cmnt Bone Cblt 40gm Hvisc Strl Implanted:Qty: 1 on 04/30/2018 by Az Mckenna MD at [facility] Right: Knee [employer] 08/24/2019 [id number] / / [id number] Cmpnt Ptlr 28mm 1 Pg Wire Ascnt Arcm Kn Implanted:Qty: 1 on 04/30/2018 by Az Mckenna MD at [facility] Right: Knee [employer] 04/04/2023 [id number] / / [id number] Cmpnt Fem Kn Rt Cr Cmnt Prm Vngrd Intlk 62.5mm Implanted:Qty: 1 on 04/30/2018 by Az Mckenna MD at [facility] Right: Knee [employer] 02/05/2028 [id number] / / [id number] Tray Tib 71mm Kn Cocr I Beam Implanted:Qty: 1 on 04/30/2018 by Az Mckenna MD at [facility] Right: Knee [employer] 02/10/2028 [id number] / / [id number] Brng [id number] Vngrd Arcm Kn Ant Stab Implanted:Qty: 1 on 04/30/2018 by Az Mckenna MD at [facility] Right: Knee [employer] 01/18/2023 [id number] / / [id number] Lens Iol 0 D +20 Marlo Mod L Bcnvx Acrsf - [id number] Implanted:Qty: 1 on 11/15/2021 by Liam Brito MD at [facility] Left: Eye [employer] 09/19/2026 SN60WF.200 / [id number] / Lens Iol 0 D +21.5 Marlo Mod L Bcnvx - [id number] Implanted:Qty: 1 on 11/29/2021 by Liam Brito MD at [facility] Right: Eye [employer] 09/25/2026 SN60WF.215 / [id number] / Procedures Procedure Name Priority Date/Time Associated Diagnosis Comments COMPREHENSIVE METABOLIC PANEL Routine 04/12/2018 2:15 PM IMMIGRATION LAWYER Preop examination from Last 3 Months or Most Recently Relevant to Health Maintenance Results * (ABNORMAL) COMPREHENSIVE METABOLIC PANEL (04/12/2018 2:15 PM IMMIGRATION LAWYER) Pathologist [facility] Glucose 98 74 - 106 mg/dL 04/12/2018 3:03 PM IMMIGRATION LAWYER [facility] Sodium 137 136 - 145 mmol/L 04/12/2018 3:03 PM IMMIGRATION LAWYER [facility] Potassium 4.2 3.5 - 5.1 mmol/L 04/12/2018 3:03 PM [facility] Chloride 104 98 - 107 mmol/L 04/12/2018 3:03 PM [facility] CO2 30 22 - 31 mmol/L 04/12/2018 3:03 PM [facility] Calcium 8.4(L) 8.5 - 10.1 mg/dL 04/12/2018 3:03 PM [facility] Anion Gap 3(L) 8 - 16 mmol/L 04/12/2018 3:03 PM [facility] BUN 20 7 - 21 mg/dL 04/12/2018 3:03 PM [facility] Creatinine 0.88 0.50 - 1.30 mg/dL 04/12/2018 3:03 PM [facility] Alkaline Phosphatase 75 38 - 126 U/L 04/12/2018 3:03 PM [facility] ALT 23 13 - 61 U/L 04/12/2018 3:03 PM [facility] AST 12 5 - 40 U/L 04/12/2018 3:03 PM [facility] Protein Total 6.9 6.4 - 8.2 gm/dL 04/12/2018 3:03 PM [facility] Albumin 3.5 3.4 - 5.0 gm/dL 04/12/2018 3:03 PM [facility] Bilirubin Total 0.2 0.2 - 1.0 mg/dL 04/12/2018 3:03 PM [facility] eGFR by MDRD >60 >60 mL/min/1.7 3m2 04/12/2018 3:03 PM [facility] eGFR by MDRD >60 >60 mL/min/1.7 3m2 04/12/2018 3:03 PM [facility] Blood BLOOD SPECIMEN / Unknown Venipuncture / Unknown 04/12/2018 2:15 PM IMMIGRATION LAWYER 04/12/2018 2:41 PM IMMIGRATION LAWYER Az Mckenna MD LAB - CHEMISTRY ANDI VILLEDA [facility] Organization Address City/State/ZIP Co de Phone Number [facility] [address] [place] [address] from Last 3 Months or Most Recently Relevant to Health Maintenance Advance Directives * Full Code (Latest Code Status on File) Date Activated Date Inactivated Comments 04/30/2018 1:54 PM 05/02/2018 2:43 PM Care Teams Castings Trimmer Relationship Specialty Start Date End Date Ryan Minor DO [address] [place] [address] PCP - General 07/02/19
--- OUTSIDE RECORDS SUMMARY | 2024-06-21 10:50 | XMS_ITS | Encounter Summary ---
Author Organization [facility] Health Address [address] [facility] [place] [address] Care Team Providers Care Clerical Assigner Name Role Phone Ryan Minor Primary Care Provider [phone] Encounter Details Date Type Department Care Team (Late st Contact Info) Description 08/12/2021 Telephone [facility] [address] [place] [address] Pi, [place] [address] [facility] [address] [place] [address] Social History Tobacco Use Types Packs/Day Years [...] encounter Miscellaneous Notes * Telephone Encounter - Jamar Metz - 08/12/2021 8:39 AM CDT Pt called wanting to get an apointment teressa for cataracts. Her MRN is [id number]. Her appointment with shila was bumped her phone number is [phone] documented in this encounter Plan of Treatment Not on file documented as of this encounter Visit Diagnoses Not on filedocumented in this encounter Care Teams Clerical Assigner Relationship Specialty Start Date End Date Ryan Minor DO [address] [place] [id number] PCP - General 07/02/19 documented as of this encounter
[2024-06-21 11:01] LABS: Basophils Absolute Auto 0.1 K/mm3 (0.0-0.1); Eosinophils Absolute Auto 0.1 K/mm3 (0-0.3); Eosinophils Percent Auto 1.5 % (0-4.4); Hemoglobin 13.8 g/dL (12.0-15.0); Immature Granulocyte Absolute 0.03 K/mm3 (0.00-0.031); Immature Granulocyte Percent A 0.4 % (0-0.5); Lymphocytes Absolute Auto 1.78 K/mm3 (0.9-3.2); Lymphocytes Percent Auto 25.9 % (18.3-44.2); Mean Corpuscular HGB Conc 31.4 g/dl (32-36); Mean Corpuscular Hemoglobin 26.5 pg (26-34); Mean Corpuscular Volume 84.6 fl (80-100); Mean Platelet Volume 10.3 fl (7.4-10.4); Monocytes Absolute Auto 0.5 K/mm3 (0.1-0.6); Monocytes Percent Auto 7.6 % (2.6-8.5); Neutrophils Absolute Auto 4.4 K/mm3 (1.3-6.7); Neutrophils Percent Auto 63.6 % (45.5-73.1); Platelet Count Result 190 k/mm3 (150-375); Red Cell Distribution Width 14.2 % (11.5-14.5); White Blood Count 6.9 K/mm3 (4.5-10.0)
[2024-06-21 11:03] LABS: Prothrombin Time 13.2 Seconds (11.1-14.7)
[2024-06-21 11:04] LABS: Alanine Aminotransferase 15 U/L (6-35); Albumin Level 4.2 g/dL (3.5-5.1); Alkaline Phosphatase 68 U/L (38-126); Anion Gap 6 mmol/L (4-12); Aspartate Amino Transferase 21 U/L (14-36); Bilirubin,Total 0.5 mg/dL (0.2-1.3); Blood Urea Nitrogen 15 mg/dL (7-17); Calcium 8.9 mg/dL (8.4-10.2); Carbon Dioxide 28 mmol/L (22-30); Chloride 105 mmol/L (98-107); Estimated CRCL calculation 46 ml/min; Estimated Glomerular Filt Rate > 60; Glucose 103 mg/dL (65-110); Lipase 62 U/L (23-300); Partial Thromboplastin Time 24.8 Seconds (22.3-36.8); Potassium 4.3 mmol/L (3.4-5.0); Sodium 139 mmol/L (137-145)
[2024-06-21 11:14] LABS: Troponin I < 0.012 ng/mL (0.000-0.034)
[2024-06-21 11:32] VITALS: BP 128/78; PULSE 76; RESP 17; O2SAT 100
[2024-06-21] MEDS: ASPIRIN 81 MG CHEWABLE TABLET 324 MG PO (11:55)
[2024-06-21 11:59] VITALS: BP 122/70; PULSE 71; RESP 16; O2SAT 98
[2024-06-21 12:16] VITALS: BP 110/60; PULSE 67; RESP 15; O2SAT 99
--- NOTE | 2024-06-21 12:33 | ED_ITS ---
HPI - Chest Pain General Chief Complaint: Chest Pain Stated Complaint: mid-sternal chest pain x30 minutes Time Seen by Provider: 06/21/24 12:01 History of Present Illness HPI narrative: 74-year-old female with a past medical history including hypertension, hyperlipidemia presenting to the emergency department for evaluation of substernal chest pain. Patient states that occurred 30 minutes prior to arrival and was unprovoked. Started substernally and radiated to his right ear. No history of heart attacks or heart issues in the past. She has a history of provoked DVT in the past and presently not on any kind of anticoagulation. No recent injuries, trauma, surgery, long travel. No fever, chills, shortness a breath, pleuritic chest pain. No exertional component or chest pain. No nausea or vomiting. She is otherwise well-appearing not any acute distress. Did not take anything prior to arrival. Chest pain has since resolved. Related Data Home Medications ?Medication ?Instructions ?Recorded ?Confirmed ?Last Taken ?Type albuterol sulfate 90 mcg/actuation 2 puff inhalation Q4-6H PRN 06/21/22 06/04/24 Unknown History aerosol inhaler Shortness Of Breath acetaminophen-calcium carbonat 500 2 tablet PO PRN PRN Pain 06/04/24 06/04/24 Unknown History mg-250 mg tablet Allergies Allergy/AdvReac Type Severity Reaction Status Date / Time No Known Allergies Allergy Verified 06/21/24 10:12 Review of Systems 2 Review of Systems: As reviewed above in [facility] Past Medical History Medical History BMI 30.0-30.9,adult Abnormal lung scan Cataract (lens) fragments in eye following cataract surgery, bilateral COVID-19 Screening for lipid disorders Renal cyst 6, not currently Allergic rhinitis, seasonal Anxiety Arthritis Bacterial vaginosis Blood clotting disorder Bowel trouble Broken wrist Normal colonoscopy Dementia Depression Diverticulitis GERD (gastroesophageal reflux disease) History of migraine headaches Hematuria Hemorrhoids Herniated disc High cholesterol History of anemia Acute insomnia Kidney disease Mammogram abnormal Meniscus degeneration RLS (restless legs syndrome) Stroke Suicide attempt Surgical History Surgical History H/O radiofrequency ablation (RFA) of nerve of lumbar spine History of appendectomy Previous back surgery Knee joint replacement status Family History Family History Father Family history of lung disease Depression Family history of malignant neoplasm of gastrointestinal tract Family history of migraine headaches Family history of alcoholism Cancer Mother Family history of heart disease in male family member before age 55 Hypertension Sibling Depression Family history of migraine headaches Cancer Other Family history of mental disorder Social History Social History Smoking packs per day: 1 Smoking cigarettes per day: 20.0 Years smoked: 6 Smoking pack-years: 6.00 Smoking status: Former smoker Tobacco type: cigarettes Second hand tobacco smoke exposure: No Smoking end date: 04/10/75 Alcohol intake: never Substance use: current Substance use type: marijuana Other substance usage details: 1/2 edible gummy for back pain a few times weekly Do You Feel Safe in your Home?: Yes Lack of Transportation: No Current Housing: I Have Housing Concerned About Future Housing: No Difficulty Paying Gas/Electric Bills: No Difficulty Paying for Meds: No Currently Unemployed: No Education: Trade/Vocational Certificate Difficulty w/ Childcare or Family Care: No Living arrangements: with family Occupation/Education: retired 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 Gender identity (if verbalized by the patient): Female Spiritual care concerns: No Exam 2 Narrative: GENERAL: [Well-appearing, well-nourished, and in no acute distress.] HEAD: [Normocephalic, atraumatic.] EYES: [PERRLA and EOMI.] ENT: Nares clear, no rhinorrhea or epistaxis. Mucous membranes moist. NECK: Supple. CHEST: [Clear to auscultation. No respiratory distress.] HEART: [Regular rate and rhythm]. No murmur heard. [Normal peripheral pulses.] ABDOMEN: [Soft, nondistended], [nontender], [No rigidity or guarding] EXTREMITIES: Normal range of motion. [No edema.] SKIN: Warm, dry, no rash. NEURO: [No focal deficits]. Alert and oriented [x3.] PSYCH: [Normal mood and affect.] Course Vital Signs Vital signs: Vital Signs Temperature 36.3 C L 06/21/24 10:17 Pulse Rate 65 06/21/24 10:17 Respiratory Rate 16 06/21/24 10:17 Blood Pressure 152/80 H 06/21/24 10:17 Pulse Oximetry 99 06/21/24 10:17 Oxygen Delivery Room Air 06/21/24 10:17 Temperature 36.3 C L 06/21/24 10:17 Pulse Rate 71 06/21/24 11:59 Respiratory Rate 16 06/21/24 11:59 Blood Pressure 122/70 06/21/24 11:59 Pulse Oximetry 98 06/21/24 11:59 Oxygen Delivery Room Air 06/21/24 11:59 MDM - Chest Pain MDM Narrative Medical decision making narrative: 74-year-old female history of hypertension, hyperlipidemia presenting for chest pain evaluation. Patient was otherwise in her normal state of health, had sudden-onset substernal chest pain radiating towards right ear that occurred 30 minutes prior to arrival to the ER and has since subsided completely. She has normal well-perfused extremities 2+ pulses, clear breath sounds, normal vitals any tachycardia, fever or hypoxia. Normal blood pressure. Considerations presently for musculoskeletal chest pain, costochondritis, GERD, pneumothorax, pneumonia, less likely PE or ACS but she does have risk factors. Workup ordered including serial troponin, EKG, chest x-ray, D-dimer, CBC, CMP, lipase. Presently patient is asymptomatic and was placed on pattern designer and pulse oximetry and was frequently re-evaluated. D-dimer came back elevated so CT angiography was ordered. No acute or subacute pulmonary emboli but there is a chronic nonocclusive pulmonary embolism in the right lower lobe which patient is well aware of. She is not any anticoagulation for this and follows up with her doctor. No aneurysm or dissection. Bibasilar atelectasis noted trace. Workup shows no leukocytosis or anemia. Normal platelet count. Negative troponin x2. Electrolytes within normal limits, normal renal and hepatic function panel. EKG shows normal sinus rhythm, no signs of ectopy or ischemia. Patient was re-evaluated and still having no symptoms. She is safe and stable for discharge with regular PCP follow-up this time. Provided return precautions. Medical Records Data Attestation: I reviewed the patient's medical records. Lab Data Attestation: I reviewed the patient's lab results. 06/21/24 10:29 06/21/24 10:29 Labs: Lab Results 06/21/24 06/21/24 Range/Units 10:29 13:22 WBC 6.9 (4.5-10.0) K/mm3 RBC 5.20 (4.2-5.4) M/mm3 Hgb 13.8 (12.0-15.0) g/dL Hct 44.0 (37.0-47.0) % MCV 84.6 (80-100) fl MCH 26.5 (26-34) pg MCHC 31.4 L (32-36) g/dl RDW 14.2 (11.5-14.5) % Plt Count 190 (150-375) k/mm3 MPV 10.3 (7.4-10.4) fl Immature Gran % (Auto) 0.4 (0-0.5) % Neut % (Auto) 63.6 (45.5-73.1) % Lymph % (Auto) 25.9 (18.3-44.2) % Pitt % (Auto) 7.6 (2.6-8.5) % Eos % (Auto) 1.5 (0-4.4) % Baso % (Auto) 1.0 (0.2-1.2) % Lymph # (Auto) 1.78 (0.9-3.2) K/mm3 Pitt # (Auto) 0.5 (0.1-0.6) K/mm3 Eos # (Auto) 0.1 (0-0.3) K/mm3 Baso # (Auto) 0.1 (0.0-0.1) K/mm3 Abs Immat Gran (auto) 0.03 (0.00-0.031) K/mm3 Absolute Neuts (auto) 4.4 (1.3-6.7) K/mm3 Absolute Nucleated RBC 0.000 (0.0-0.012) K/mm3 Nucleated RBC % 0.0 (0.0-0.2) % PT 13.2 (11.1-14.7) Seconds INR 1.0 APTT 24.8 (22.3-36.8) Seconds D-Dimer 0.74 H (<0.48) ug/mL Sodium 139 (137-145) mmol/L Potassium 4.3 (3.4-5.0) mmol/L Chloride 105 (98-107) mmol/L Carbon Dioxide 28 (22-30) mmol/L Anion Gap 6 (4-12) mmol/L BUN 15 (7-17) mg/dL Creatinine 0.85 (0.7-1.0) mg/dL Estim Creat Clear Calc 46 ml/min Estimated GFR > 60 (59 - ) Glucose 103 (65-110) mg/dL Calcium 8.9 (8.4-10.2) mg/dL Total Bilirubin 0.5 (0.2-1.3) mg/dL AST 21 (14-36) U/L ALT 15 (6-35) U/L Alkaline Phosphatase 68 (38-126) U/L Troponin I < 0.012 < 0.012 (0.000-0.034) ng/mL Total Protein 7.0 (6.3-8.2) g/dL Albumin 4.2 (3.5-5.1) g/dL Lipase 62 (23-300) U/L Imaging Data Attestation: I personally reviewed and interpreted this imaging study as follows: My impression: Impressions Chest X-Ray 06/21/24 12:38 IMPRESSION: No focal infiltrate or effusion. Chest CTA 06/21/24 13:41 IMPRESSION: No acute or subacute pulmonary embolus. Chronic nonocclusive pulmonary embolus within the right lower lobe subsegmental branch, unchanged from 2022. No thoracic aortic dissection. Trace bibasilar atelectasis. ECG Data EKG #1: Attestation: I personally reviewed and interpreted this ECG as follows: ECG completion date: 06/21/24 ECG completion time: 13:26 Prior ECG tracings: available for review Interpretation: No ST segment elevations, depressions or inversions. Regular rate, regular rhythm. QTC 392, PA interval 160, QRS 71. Rate of 66 beats per minute. No signs of acute ischemia. Overall normal sinus rhythm. Discharge Plan Discharge Clinical Impression: Chronic pulmonary embolism, Chest pain Patient Disposition: Home, Self-Care Condition: Stable Instructions: Antibiotic Form, Chest Pain (ED), Chest Wall Pain (ED) Additional Instructions: Your CT scan shows an old blood clot that is unchanged and not causing any issues. No new blood clots. Your heart enzymes were undetectable, EKG shows no concerning heart findings such as heart attack or dysrhythmia. Follow-up with regular doctor. Return with any new or worsening concerns. Patient Language: Montserratian Prescriptions: No Action albuterol sulfate 90 mcg/actuation HFA aerosol inhaler 2 puff INHALATION Q4-6H PRN (Reason: Shortness Of Breath) acetaminophen-calcium carbonat 500-250 mg tablet 2 tablet PO PRN PRN (Reason: Pain) clonazepam 1 mg tablet 1 mg PO HS Qty: 30 1RF alendronate 70 mg tablet See Rx Instructions .ROUTE .COMPLEX Qty: 12 1RF Dose Instruction: TAKE 1 TABLET BY MOUTH ONCE WEEKLY Rx Instructions: TAKE 1 TABLET BY MOUTH ONCE WEEKLY ropinirole 1 mg tablet See Rx Instructions .ROUTE .COMPLEX Qty: 90 1RF Dose Instruction: TAKE 1 TABLET(1 MG) BY MOUTH EVERY DAY AT BEDTIME Rx Instructions: TAKE 1 TABLET(1 MG) BY MOUTH EVERY DAY AT BEDTIME venlafaxine 150 mg capsule,extended release 24hr See Rx Instructions .ROUTE .COMPLEX Qty: 90 1RF Dose Instruction: TAKE 1 CAPSULE BY MOUTH DAILY Rx Instructions: TAKE 1 CAPSULE BY MOUTH DAILY Wegovy 0.25 mg/0.5 mL pen injector 0.25 mg subcut WEEKLY Qty: 2 0RF Rx Instructions: administer weeks 1 through 4 of therapy trazodone 150 mg tablet See Rx Instructions .ROUTE .COMPLEX Qty: 90 1RF Dose Instruction: TAKE 1 TABLET BY MOUTH EVERY NIGHT AT BEDTIME Rx Instructions: TAKE 1 TABLET BY MOUTH EVERY NIGHT AT BEDTIME buspirone 15 mg tablet 15 mg PO BID Qty: 180 1RF Rx Instructions: 15 mg orally twice a day; Follow-up/Referrals: Luis Felipe Peña APRN [Primary Care Provider] - Time of Disposition: 14:55 Quality HEART score for chest pain patients History: slightly suspicious ECG: normal Age: > or = to 65 years Risk factors: 1 or 2 risk factors Troponin: < or = to 1x normal limit Heart score: 3
[2024-06-21 12:55] LABS: D Dimer 0.74 ug/mL (<0.48)
--- OUTSIDE RECORDS SUMMARY | 2024-06-21 13:14 | XMS_ITS | Continuity of Care Document ---
Author Organization [facility] Address [address] [place] [address] [place] [address] Phone Care Team Providers Care Franchise Business Consultant Name Role Phone Qian Stokes Unavailable Unavailable Procedures Procedure Date Eye Exam Established Pt Visual Field Examination(s) Eye Exam Established Pt Office/outpatient Visit, Est Eye Exam, New Patient Advance Directives Directive Yes / No Effective Date File Name No Information Encounters Encounter Description Practice Location Reason(s) For Visit Diagnoses Date Provider Providers Copied on Encounter [facility], [address] [place] [address] [address], [place], [place], [id number], tel:[phone] [facility] No Information Jan-0 7-201 0 Divya Velazquez [address] , [address], [place], [address], [place]. tel:[phone] [facility], [address] [place] [address] [address], [place], [place], [id number], [place] tel:[phone] [facility] No Information 9-200 8 Divya Velazquez [address] [facility] , [address], [place], [address], [place]. tel:[phone] Referring Provider: Qian Stephenson [address], [place], [place], [facility]. tel:[phone] [facility], [address], [place], [place], [id number], [place] tel:[phone] [facility] No Information 8 Divya Laughlin. [address], [place], [address], [place]. tel:[phone] Office/outpat ient Visit, Est [facility], [address], [place], [place], [id number], [place] tel:[phone] [facility] No Information 0 200 7 Serjio Garcia. [address], [address], [place], [place], [id number], [place]. tel:[phone] [facility], [address], [place], [place], [id number], [place] tel:[phone] [facility] No Information 7 Divya Laughlin. [address] [facility] [facility] , [address], [place], [address], [place]. tel:[phone] Family History Family Member Type Diagnosis Age [...]
--- OUTSIDE RECORDS SUMMARY | 2024-06-21 13:15 | XMS_ITS | Clinical Summary ---
Author Organization [facility] Address [address] [place] [address] Care Team Providers Care Fish Processing Supervisor Name Role Phone Ryan Minor DO Primary Care Provider [phone] Social History Tobacco Use Types Packs/Day Years [...] age to complete this topic Insurance [facility] [place] [id number] Care Teams Fish Processing Supervisor Relationship Specialty Start Date End Date Ryan Minor DO [address] [address] PCP - General INTERNAL MEDICINE 07/30/19
--- OUTSIDE RECORDS SUMMARY | 2024-06-21 13:15 | XMS_ITS | Encounter Summary ---
Author Organization [facility] Health Address [address] [facility] [place] [address] Care Team Providers Care Department Store Salesperson Name Role Phone Ryan Minor DO Primary Care Provider [phone] Encounter Details Date Type Department Care Team (Late st Contact Info) Description 08/30/2021 Telephone [facility] [address] [place] [address] Ryan Minor DO [address] [place] [id number] Social History Tobacco Use Types Packs/Day [...] on filedocumented in this encounter Care Teams Department Store Salesperson Relationship Specialty Start Date End Date Ryan Minor DO [address] [place] [address] PCP - General 07/02/19 documented as of this encounter
--- OUTSIDE RECORDS SUMMARY | 2024-06-21 13:15 | XMS_ITS | Encounter Summary ---
Author Organization [facility] Health Address [address] [facility] [place] [address] Care Team Providers Care Coil Machine Supervisor Name Role Phone Ryan Minor DO Primary Care Provider [phone] Encounter Details Date Type Department Care Team (Late st Contact Info) Description 09/15/2021 Telephone [facility] [address] [facility] [place] [id number] Robbin Yun MD [address] [facility] 2[address] DIV OF PULMONARY/CRITICAL CARE [place], [place] [id number] Social History Tobacco Use Types Packs/Day Years [...] Dr. Robbin Yun Reason for call: Ms. Zena Butler has a HST-PICKUP 09/21/2021 and was exposed to someone with COVID 09/14/2021. She will have to have a date to telephone supervisor after 09/28/2021. Please call patient. Patient Call Back number: [phone] documented in this encounter Plan of Treatment Not on file documented as of this encounter Visit Diagnoses Not on filedocumented in this encounter Care Teams Coil Machine Supervisor Relationship Specialty Start Date End Date Ryan Minor DO [address] [place] [address] PCP - General 07/02/19 documented as of this encounter
--- OUTSIDE RECORDS SUMMARY | 2024-06-21 13:15 | XMS_ITS | Referral Summary ---
Author Organization [facility] [employer] Address [address] [facility] [place] [address] Care Team Providers Care Sole Layer Hand Name Role Phone Ryan Minor DO Primary Care Provider [phone] Source Comments [facility],non-owned Affiliates and Associated Physician Practices is amultiple site organization consisting of ambulatory clinics and hospital sitesin [place], [place], [place] and [place]. This disclosure is being madepursuant to the Care Everywhere program and may not contain all information available regarding this patient. Last updated 17.[facility] [employer] Allergies Active Allergy Reactions Criticality Noted Date [...] sprayIndications:Aller gic rhinitis, unspecified seasonality, unspecified trigger [place] 2 (two) sprays into each nostril once [...] on file Medical Devices Implanted Type Area Custom [employer]ather [employer] Maker Device Identifier Shelf Expiration Date Model / Serial / Lot Cmnt Bone Cblt 40gm Hvisc Strl Implanted:Qty: 1 on 04/30/2018 by Az Mckenna MD at [facility] Right: Knee [employer] 08/24/2019 [id number] / / [id number] Cmpnt Ptlr 28mm 1 Pg Wire Ascnt Arcm Kn Implanted:Qty: 1 on 04/30/2018 by Az Mckenna MD at [facility] Right: Knee [employer] 04/04/2023 [id number] / / [id number] Cmpnt Fem Kn Rt Cr Cmnt Prm Vngrd Intlk 62.5mm Implanted:Qty: 1 on 04/30/2018 by Az Mckenna MD at [facility] Right: Knee [employer] 02/05/2028 [id number] / / [id number] Tray Tib 71mm Kn Cocr I Beam Implanted:Qty: 1 on 04/30/2018 by Az Mckenna MD at [facility] Right: Knee [employer] 02/10/2028 [id number] / / [id number] Brng [id number] Vngrd Arcm Kn Ant Stab Implanted:Qty: 1 on 04/30/2018 by Az Mckenna MD at [facility] Right: Knee [employer] 01/18/2023 [id number] / / [id number] Lens Iol 0 D +20 Marlo Mod L Bcnvx Acrsf - [id number] Implanted:Qty: 1 on 11/15/2021 by Liam Brtio MD at [facility] Left: Eye [employer] 09/19/2026 SN60WF.200 / [id number] / Lens Iol 0 D +21.5 Marlo Mod L Bcnvx - [id number] Implanted:Qty: 1 on 11/29/2021 by Liam Brito MD at [facility] Right: Eye [employer] 09/25/2026 SN60WF.215 / [id number] / Procedures Procedure Name Priority Date/Time Associated Diagnosis Comments COMPREHENSIVE METABOLIC PANEL Routine 04/12/2018 2:15 PM ADMINISTRATIVE OFFICE SPECIALIST Preop examination from Last 3 Months or Most Recently Relevant to Health Maintenance Results * (ABNORMAL) COMPREHENSIVE METABOLIC PANEL (04/12/2018 2:15 PM ADMINISTRATIVE OFFICE SPECIALIST) Pathologist [facility] [place] Glucose 98 74 - 106 mg/dL 04/12/2018 3:03 PM ADMINISTRATIVE OFFICE SPECIALIST [facility] Sodium 137 136 - 145 mmol/L 04/12/2018 3:03 PM ADMINISTRATIVE OFFICE SPECIALIST [facility] Potassium 4.2 3.5 - 5.1 mmol/L 04/12/2018 3:03 PM [facility] Chloride 104 98 - 107 mmol/L 04/12/2018 3:03 PM [facility] CO2 30 22 - 31 mmol/L 04/12/2018 3:03 PM [facility] Calcium 8.4(L) 8.5 - 10.1 mg/dL 04/12/2018 3:03 PM [facility] Anion Gap 3(L) 8 - 16 mmol/L 04/12/2018 3:03 PM [facility] BUN 20 7 - 21 mg/dL 04/12/2018 3:03 PM [facility] Creatinine 0.88 0.50 - 1.30 mg/dL 04/12/2018 3:03 PM [facility] Alkaline Phosphatase 75 38 - 126 U/L 04/12/2018 3:03 PM [facility] ALT 23 13 - 61 U/L 04/12/2018 3:03 PM [facility] AST 12 5 - 40 U/L 04/12/2018 3:03 PM [facility] Protein Total 6.9 6.4 - 8.2 gm/dL 04/12/2018 3:03 PM [facility] Albumin 3.5 3.4 - 5.0 gm/dL 04/12/2018 3:03 PM [facility] Bilirubin Total 0.2 0.2 - 1.0 mg/dL 04/12/2018 3:03 PM [facility] eGFR by MDRD >60 >60 mL/min/1.7 3m2 04/12/2018 3:03 PM [facility] eGFR by MDRD >60 >60 mL/min/1.7 3m2 04/12/2018 3:03 PM [facility] Blood BLOOD SPECIMEN / Unknown Venipuncture / Unknown 04/12/2018 2:15 PM ADMINISTRATIVE OFFICE SPECIALIST 04/12/2018 2:41 PM ADMINISTRATIVE OFFICE SPECIALIST Az Mckenna MD LAB - CHEMISTRY ANDI VILLEDA [facility] Organization Address City/State/ZIP Co de Phone Number [facility] [address] [place] [address] from Last 3 Months or Most Recently Relevant to Health Maintenance Advance Directives * Full Code (Latest Code Status on File) Date Activated Date Inactivated Comments 04/30/2018 1:54 PM 05/02/2018 2:43 PM Care Teams Sole Layer Hand Relationship Specialty Start Date End Date Ryan Minor DO [address] [place] [address] PCP - General 07/02/19
--- OUTSIDE RECORDS SUMMARY | 2024-06-21 13:15 | XMS_ITS | Patient Health Summary ---
Author Organization [facility] Address [address] [place] [address] Care Team Providers Care Associate Professor Computer Science Name Role Phone Ryan Minor Primary Care Provider [phone] Note from [facility],non-owned Affiliates and Associated Physician Practices is amultiple site organization consisting of ambulatory clinics and hospital sitesin [place], [place], [place] and [place]. This disclosure is being madepursuant to the Care Everywhere program and may not contain all information available regarding this patient. Last updated 17.[facility] Allergies * Levaquin(Other) -Low Criticality Medications * [...] propionate (FLONASE) 50 MCG/ACT nasal spray(Started 08/20/2021) [place] 2 (two) sprays into each nostril once [...] AM CDT Medical Devices Implanted Type Area Communicable Disease Specialist Device Identifier Shelf Expiration Date Model / Serial / Lot Cmnt Bone Cblt 40gm Hvisc Strl Implanted:Qty: 1 on 04/30/2018 by Alix Mckenna MD at [facility] Right: Knee [employer] 08/24/2019 [id number] / / [id number] Cmpnt Ptlr 28mm 1 Pg Wire Ascnt Arcm Kn Implanted:Qty: 1 on 04/30/2018 by Alix Mckenna MD at [facility] Right: Knee [employer] 04/04/2023 [id number] / / [id number] Cmpnt Fem Kn Rt Cr Cmnt Prm Vngrd Intlk 62.5mm Implanted:Qty: 1 on 04/30/2018 by Alix Mckenna MD at [facility] Right: Knee [employer] 02/05/2028 [id number] / / [id number] Tray Tib 71mm Kn Cocr I Beam Implanted:Qty: 1 on 04/30/2018 by Alix Mckenna MD at [facility] Right: Knee [employer] 02/10/2028 [id number] / / [id number] Brng 65vyr82up Vngrd Arcm Kn Ant Stab Implanted:Qty: 1 on 04/30/2018 by Alix Mckenna MD at [facility] Right: Knee [employer] 01/18/2023 [id number] / / [id number] Lens Iol 0 D +20 Marlo Mod L Bcnvx Acrsf - [id number] Implanted:Qty: 1 on 11/15/2021 by Liam Brito MD at [facility] Left: Eye [employer] 09/19/2026 SN60WF.200 / [id number] / Lens Iol 0 D +21.5 Marlo Mod L Bcnvx - [id number] Implanted:Qty: 1 on 11/29/2021 by Liam Brito MD at [facility] Right: Eye [employer] 09/25/2026 SN60WF.215 / [id number] / Procedures * EXTRACTION CATARACT WITH INSERTION LENS(Performed 11/29/2021) Performed for Nuclear sclerotic cataract of both eyes * VA POLYSOM 6/> YRS 4/> DANIELLA(Performed 11/19/2021) Performed for VISH (obstructive sleep apnea) * EXTRACTION CATARACT WITH INSERTION LENS(Performed 11/15/2021) Performed for Nuclear sclerotic cataract of both eyes * OPH IOL TEST SLU(Performed 10/22/2021) Performed for Nuclear sclerotic cataract of both eyes * OPH CORNEAL TOPOGRAPHY TEST SLU(Performed 10/22/2021) Performed for Nuclear sclerotic cataract of both eyes * VA SLEEP STUDY UNATT&RESP EFFT(Performed 10/18/2021) Performed for [...] CT GUIDED NEEDLE PLACEMENT(Performed 08/29/2013) * CYTOLOGY NON-RUG SETTER VELVET PANEL (STL)(Performed 08/29/2013) * COMPREHENSIVE METABOLIC PANEL(Performed [...] - HPF HISTORICAL REPORTS(Performed 08/27/2008) Results * VA POLYSOM 6/> YRS 4/> DANIELLA (11/19/2021 1:42 PM CDT) Narrative Robbin Yun MD - 11/19/2021 1:42 PM CDT Robbin Yun MD 11/19/2021 1:45 PM [facility] Accredited by the [employer] [employer] [facility], First Floor [address] [place] [address] Telephone : [phone] Medical Records Patient Name: Zena Butler : 1950 Date of Study: 11/18/2021 Referring Physician: Ryan Minor DO Type of Montage: Respiratory Scoring System: [facility] FULL NIGHT DIAGNOSTIC POLYSOMNOGRAM INTERPRETATION (11/18/2021) Procedure: The polysomnogram was performed with a veterinary surgery technologist in attendance. Central, occipital, and temporal [...] fluticasone propionate (FLONASE) 50 MCG/ACT nasal spray, [place] 2 (two) sprays into each nostril once [...] airway pressure (CPAP) trial Robbin Yun MD, [facility], [facility], [facility] Shock Absorber Installer, [facility] Professor of Internal Medicine Adjunct Tele Grout Sewer Line Repairer of Neurology Division of Pulmonary, Critical Care, and Sleep Medicine [facility] This note was electronically signed on 11/19/2021. CC: Ryan Minor DO [address] [place] [address] Ryan Minor DO Robbin Yun MD PROCEDURE/MINOR KARMA GICAL ORDERABLES * IOL Master (Lenstar) (10/22/2021 10:45 AM CDT) Anatomical Region Laterality Modality Other 10/22/2021 10:4 5 AM CDT Liam Brito MD OPHTHALMOLOGY SERVIC ES ORDERABLES * Corneal Topography (10/22/2021 10:34 AM CDT) Anatomical Region Laterality Modality Other 10/22/2021 10:3 4 AM CDT Liam Brito MD OPHTHALMOLOGY SERVIC ES ORDERABLES * VA SLEEP STUDY UNATT&RESP EFFT (10/18/2021 2:26 PM CDT) Narrative Robbin Yun MD - 10/18/2021 2:26 PM CDT Robbin Yun MD 10/18/2021 2:30 PM [facility] Accredited by the [place] [employer] Sleep Medicine [facility], First Floor [address] [place] [address] Telephone : [phone] Medical Records Patient Name: Zena Butler : 1950 Date of Study: 10/14/2021 Referring Physician: Provider Unknown No address on file Type of Montage: Type III Respiratory (oximetry, pulse rate, airflow, body position, respiratory movement) UNATTENDED HOME SLEEP APNEA TEST Unattended HST Summary Report Patient Name: Zena Butler Date of : 1950 Chart Code: [id number] Weight: 146.0 lbs Study Date: 10/14/21 Height: [...] or do in-laboratory polysomnography. Robbin Yun MD, [facility], [facility], [facility] Shock Absorber Installer, [facility] Professor of Internal Medicine Adjunct Tele Grout Sewer Line Repairer of Neurology Division of Pulmonary, Critical Care, and Sleep Medicine [facility] This note was electronically [...] 288 ng/mL [facility] Comment: Test Performed at: [facility] [address] [address] ALIX TERRY DO,MPH 09/08/2021 1:35 PM CDT 09/08/2021 1:37 PM CDT Robbin Yun MD LAB - CHEMISTRY ORD ERABLES [facility] [address] [place] [address] * METHYLMALONIC ACID BLOOD (09/08/2021 1:35 PM CDT) Methylmalonic Acid 172 87 - 318 nmol/L [facility] Comment: This test was developed and its analytical performance characteristics have been determined by [employer] [place]. It has not been cleared or approved by the U.S. Food and Drug Administration. This assay has been validated pursuant to the CLIA regulations and is used for clinical purposes. Test Performed at: [facility] [address] [place], [place] CANDIDO DISLA MD,PHD 09/08/2021 1:35 PM CDT 09/08/2021 1:37 PM CDT Robbin Yun MD LAB - CHEMISTRY ORD ERABLES Performing Organization Address [facility] Co de Phone Number [facility] [address] [place] [address] * VITAMIN D 25-HYDROXY (09/08/2021 1:35 PM CDT) Pathologist [facility] Vitamin D, 25 Hydroxy 35 30 - 100 ng/mL [facility] Comment: Vitamin D Status 25-OH Vitamin D: Deficiency: <20 ng/mL Insufficiency: 20 - 29 ng/mL Optimal: > or = 30 ng/mL For 25-OH Vitamin D testing on patients on D2-supplementation and patients for whom quantitation of D2 and D3 fractions is required, the QuestAssureD(TM) 25-OH VIT D, (D2,D3), LC/MS/MS is recommended: order code 68909 (patients >2yrs). See Note 1 Note 1 For additional information, please refer to http://education.[employer].Presidio/faq/CEE241 (This link is being provided for informational/ educational purposes only.) Test Performed at: [facility] [address] [place] [address] ALIX TERRY DO,MPH 09/08/2021 1:35 PM CDT 09/08/2021 1:37 PM CDT Robbin Yun MD LAB - CHEMISTRY ORD ERABLES Performing Organization Address [facility] Co de Phone Number [facility] [address] [place] [address] * VITAMIN B12 (09/08/2021 1:35 PM CDT) Vitamin B12 517 200 - 1100 pg/mL [facility] Comment: Test Performed at: [facility] [address] [address] [place] [address] ALIX TERRY DO,MPH 09/08/2021 1:35 PM CDT 09/08/2021 1:37 PM CDT Robbin Yun MD LAB - CHEMISTRY ORD ERABLES [employer] [address] [place] [address] * URINALYSIS AUTO - POINT OF CARE (AMB) STL (06/02/2020 6:53 PM PROFESSOR OF BIOSTATISTICS) Pathologist [facility] Clarity UA POCT clear [facility] [...] UA +++ Negative [facility] Specific [place] UA POCT 1.002 1.002 - 1.030 [facility] Ketone UA negative Negative [facility] Bilirubin UA POCT negative Negative [facility] Glucose UA negative Negative [facility] Expiration Date 08 21 2020 [facility] Lot # [id number] [facility] QC Verified Yes Yes [facility] Urine URINE / Unknown 06/02/2020 6 :53 PM PROFESSOR OF BIOSTATISTICS Mita Medellin APRN-ISI LAB - POINT OF CA RE ORDERABLES [facility] [address] [phone] * CULTURE URINE (06/02/2020 6:50 PM PROFESSOR OF BIOSTATISTICS) Only the most recent of2 resultswithin the time period is included. Culture [facility] Comment: CULTURE, URINE, ROUTINE Micro Number: [id number] Test Status: Final Specimen Source: URINE, CLEAN CATCH Specimen Quality: Adequate Result: No Growth Test Performed at: [facility] [address] LILIANE ADAMS MD Urine URINE SPECIMEN OBTAINED BY CLEAN CATCH PROCEDURE / Unknown 06/02/2020 6:50 PM PROFESSOR OF BIOSTATISTICS 06/04/2020 12:31 AM PROFESSOR OF BIOSTATISTICS Mita Medellin JITNEY DRIVER-LICENSED REAL ESTATE BROKER LAB - MICROBIOLOG Y ORDERABLES [address] [address] * XR SPINE ENTIRE 2 OR 3VW [...] renal cyst. Dictated by Robbin Mireles MD (Rubber Vulcanizing Machine Operator). I, Dr. KRISTOFER DILLON M.D. have personally [...] renal cyst. Dictated by Robbin Mireles MD (Rubber Vulcanizing Machine Operator). Dr. KRISTOFER Mata M.D. have personally reviewed [...] renal cyst. Dictated by Robbin Mireles MD (Rubber Vulcanizing Machine Operator). Dr. KRISTOFER Mata M.D. have personally reviewed [...] renal cyst. Dictated by Robbin Mireles MD (Rubber Vulcanizing Machine Operator). I, Dr. KRISTOFER DILLON M.D. have personally reviewed and interpreted this examination/study. This report was electronically signed by KRISTOFER DILLON M.D. on08/07/2019 1:37 PM . Ankit Mayorga MD MR ORDERABLES * CREATININE BLOOD - POCT (IP) [facility] (08/07/2019 10:56 AM CDT) Creatinine POCT 0.95 0.3 - 1.3 mg/dL [facility] POCT TESTING eGFR POCT 60 60 ml/min [facility] POCT TESTING Blood BLOOD SPECIMEN / Unknown 08/07/2019 10:56 AM CDT Ankit Mayorga MD LAB - POINT OF CAR E ORDERABLES [facility] POCT TESTING [address] [phone] * XR KNEE RIGHT 3VW (06/11/2018 3:52 PM PROFESSOR OF BIOSTATISTICS) Anatomical Region Laterality Modality Lower Extremity Computed Radiogr aphy Narrative 06/11/2018 5:33 PM PROFESSOR OF BIOSTATISTICS Deb Aponte, RT(R) 06/11/2018 5:33 PM See progress notes for results Lorie Corrigan PA-C DIAGNOSTIC IM AGING ORDERABLES * NEURAXIAL BLOCK (05/07/2018 8:16 AM PROFESSOR OF BIOSTATISTICS) Narrative Bob Clemente MD - 05/07/2018 8:16 AM PROFESSOR OF BIOSTATISTICS Nasim Kaye, JITNEY DRIVER-SECURITY REPRESENTATIVE 04/30/2018 10:34 AM Neuraxial Block Note Procedure [...] (ABNORMAL) HGB HCT PANEL (05/02/2018 4:59 AM PROFESSOR OF BIOSTATISTICS) Only the most recent of2 resultswithin the time period is included. [facility] Signature Hemoglobin 11.6(L) 12.0 - 15.6 gm/dL 05/02/2018 6:13 AM PROFESSOR OF BIOSTATISTICS [facility] Hematocrit 37.2 35.9 - 45.5 % 05/02/2018 6:13 AM PROFESSOR OF BIOSTATISTICS [facility] Blood BLOOD SPECIMEN / Unknown Venipuncture / Unknown 05/02/2018 4:59 AM PROFESSOR OF BIOSTATISTICS 05/02/2018 5:58 AM PROFESSOR OF BIOSTATISTICS Alix Mckenna MD LAB - HEMATOLOGY ORD ERABLES [facility] [address] [place] [address] * EKG 12-LEAD (04/12/2018 3:04 PM PROFESSOR OF BIOSTATISTICS) Ventricular Rate 73 BPM [facility] Atrial Rate 73 BPM [facility] P-R Interval 142 ms [facility] QRS Duration ms 68 ms [facility] Q-T Interval ms 376 ms [facility] QTC Calculation (Bezet) 414 ms [facility] Calculated P Melvin 51 degrees [facility] Calculated R Melvin 8 degrees [facility] Calculated T Melvin 46 degrees [facility] Interpretation EKG Sinus rhythm with occasional Premature ventricular complexes Nonspecific ST and T wave abnormality Abnormal ECG No previous ECGs available Confirmed by Liang Aavlos ([id number]) on 04/13/2018 10:06:46 AM [facility] 04/12/2018 3:04 PM PROFESSOR OF BIOSTATISTICS 04/13/2018 10:06 AM PROFESSOR OF BIOSTATISTICS Alix Mckenna MD ECG ORDERABLES Performing Organization Address [facility] Co de Phone Number [facility] * CULTURE MSSA/MRSA (04/12/2018 2:15 PM PROFESSOR OF BIOSTATISTICS) Pathologist [facility] Culture Negative for Staphylococcus aureus (MRSA/MSSA) SYBIL 04/14/2018 7:43 AM PROFESSOR OF BIOSTATISTICS [facility] MICROBIOLOGY Microbiology SPECIMEN FROM NASAL FOSSAE / Unknown Collection / Unknown 04/12/2018 2:15 PM PROFESSOR OF BIOSTATISTICS 04/12/2018 2:41 PM PROFESSOR OF BIOSTATISTICS Alix Mckenna MD LAB - MICROBIOLOGY O RDERABLES Performing Organization Address [facility] Co de Phone Number [facility] MICROBIOLOGY [address] [place] [phone] * (ABNORMAL) CBC W AUTO DIFFERENTIAL (04/12/2018 2:15 PM PROFESSOR OF BIOSTATISTICS) Only the most recent of5 resultswithin the time period is included. WBC 6.9 4.4 - 10.7 x10E9/L 04/12/2018 2:50 PM PROFESSOR OF BIOSTATISTICS [facility] WBC Corrected x10E9/L 04/12/2018 2:50 PM PROFESSOR OF BIOSTATISTICS [facility] RBC 5.07 3.80 - 5.20 x10E12/L 04/12/2018 2:50 PM PROFESSOR OF BIOSTATISTICS [facility] Hemoglobin 13.3 12.0 - 15.6 gm/dL 04/12/2018 2:50 PM PROFESSOR OF BIOSTATISTICS [facility] Hematocrit 42.5 35.9 - 45.5 % 04/12/2018 2:50 PM PROFESSOR OF BIOSTATISTICS [facility] MCV 83.8 80.7 - 98.3 fl 04/12/2018 2:50 PM [facility] MCH 26.2(L) 26.7 - 34.0 pg 04/12/2018 2:50 PM [facility] MCHC 31.3 30.8 - 35.9 gm/dL 04/12/2018 2:50 PM [facility] Platelet Count 173 153 - 416 x10E9/L 04/12/2018 2:50 PM [facility] RDW-CV 13.8 12.1 - 14.9 % 04/12/2018 2:50 PM [facility] MPV 10.2 9.4 - 12.9 fl 04/12/2018 2:50 PM [facility] Neutrophils % 61.0 44.0 - 73.0 % 04/12/2018 2:50 PM [facility] Lymphocytes % 29.1 20.0 - 43.0 % 04/12/2018 2:50 PM [facility] Monocytes % 7.0 5.0 - 13.0 % 04/12/2018 2:50 PM [facility] Eosinophils % 1.9 0.0 - 6.0 % 04/12/2018 2:50 PM [facility] Basophils % 0.6 0.0 - 2.0 % 04/12/2018 2:50 PM [facility] Immature Granulocytes 0.4 0 - 1 % 04/12/2018 2:50 PM [facility] Neutrophil Absolute 4.18 2.01 - 7.14 x10E9/L 04/12/2018 2:50 PM [facility] Lymphocytes Absolute 1.99 1.07 - 3.94 x10E9/L 04/12/2018 2:50 PM PROFESSOR OF BIOSTATISTICS [facility] Monocytes Absolute 0.48 0.26 - 1.07 x10E9/L 04/12/2018 2:50 PM [facility] Eosinophils Absolute 0.13 0 - 0.47 x10E9/L 04/12/2018 2:50 PM [facility] Basophils Absolute 0.04 0 - 0.08 x10E9/L 04/12/2018 2:50 PM PROFESSOR OF BIOSTATISTICS [facility] Immature Granulocytes Absolute 0.03 0.00 - 0.06 x10E9/L 04/12/2018 2:50 PM [facility] nRBC Auto 0 /100 WBC 04/12/2018 2:50 PM [facility] Blood BLOOD SPECIMEN / Unknown Venipuncture / Unknown 04/12/2018 2:15 PM PROFESSOR OF BIOSTATISTICS 04/12/2018 2:41 PM PROFESSOR OF BIOSTATISTICS Alix Mckenna MD LAB - HEMATOLOGY ORD ERABLES [facility] [address] [place] [address] * (ABNORMAL) COMPREHENSIVE METABOLIC PANEL (04/12/2018 2:15 PM PROFESSOR OF BIOSTATISTICS) Only the most recent of3 resultswithin the time period is included. Glucose 98 74 - 106 mg/dL 04/12/2018 3:03 PM [facility] Sodium 137 136 - 145 mmol/L 04/12/2018 3:03 PM [facility] Potassium 4.2 3.5 - 5.1 mmol/L 04/12/2018 3:03 PM [facility] Chloride 104 98 - 107 mmol/L 04/12/2018 3:03 PM [facility] CO2 30 22 - 31 mmol/L 04/12/2018 3:03 PM [facility] Calcium 8.4(L) 8.5 - 10.1 mg/dL 04/12/2018 3:03 PM [facility] Anion Gap 3(L) 8 - 16 mmol/L 04/12/2018 3:03 PM [facility] BUN 20 7 - 21 mg/dL 04/12/2018 3:03 PM [facility] Creatinine 0.88 0.50 - 1.30 mg/dL 04/12/2018 3:03 PM [facility] Alkaline Phosphatase 75 38 - 126 U/L 04/12/2018 3:03 PM [facility] ALT 23 13 - 61 U/L 04/12/2018 3:03 PM [facility] AST 12 5 - 40 U/L 04/12/2018 3:03 PM [facility] Protein Total 6.9 6.4 - 8.2 gm/dL 04/12/2018 3:03 PM PROFESSOR OF BIOSTATISTICS [facility] Albumin 3.5 3.4 - 5.0 gm/dL 04/12/2018 3:03 PM PROFESSOR OF BIOSTATISTICS [facility] Bilirubin Total 0.2 0.2 - 1.0 mg/dL 04/12/2018 3:03 PM PROFESSOR OF BIOSTATISTICS [facility] eGFR by MDRD >60 >60 mL/min/1.7 3m2 04/12/2018 3:03 PM PROFESSOR OF BIOSTATISTICS [facility] eGFR by MDRD >60 >60 mL/min/1.7 3m2 04/12/2018 3:03 PM PROFESSOR OF BIOSTATISTICS [facility] Blood BLOOD SPECIMEN / Unknown Venipuncture / Unknown 04/12/2018 2:15 PM PROFESSOR OF BIOSTATISTICS 04/12/2018 2:41 PM PROFESSOR OF BIOSTATISTICS Alix Mckenna MD LAB - CHEMISTRY ANDI VILLEDA [facility] [address] [place] [address] * CT ABDOMEN PELVIS W CONTRAST (03/10/2017 2:25 PM PROFESSOR OF BIOSTATISTICS) Anatomical Region Laterality Modality Abdomen, Pelvis Other Impressions 03/10/2017 2:33 PM PROFESSOR OF BIOSTATISTICS IMPRESSION: 1. No acute process identified in the abdomen or pelvis. Dictated by Michael Ladd MD (engineering vice president). IDr. Reji M.D. have personally reviewed and interpreted this examination/study. This report was electronically signed by Reji KHAN M.D. on 03/10/2017 2:33 PM . Narrative 03/10/2017 2:33 PM PROFESSOR OF BIOSTATISTICS EXAMINATION: Computed tomography (CT) of the abdomen [...] or pelvis. Dictated by Michael Ladd MD (engineering vice president). IDr. Reji M.D. have personally reviewed and interpreted thisexamination/study. This report was electronically signed by Reji KHAN M.D. on03/10/2017 2:33 PM . Gaurav Boudreaux MD CT ORDERABLES * (ABNORMAL) URINALYSIS REFLEX TO MICROSCOPIC NO CULTURE (03/10/2017 12:04 PM PROFESSOR OF BIOSTATISTICS) Color UA Yellow Straw, Yellow, Colorless, Light Yellow [facility] Clarity UA Clear Clear [facility] Specific [place] UA 1.005 1.001 - 1.030 [facility] pH UA 6.5 5.0 - 8.0 [facility] Protein UA Negative <=20 mg/dL [facility] Glucose UA Negative Negative mg/dL [facility] Ketone UA Negative Negative mg/dL [facility] Bilirubin UA Negative Negative mg/dL [facility] Blood UA Trace(A) Negative [facility] Nitrite UA Negative Negative [facility] Leukocyte Esterase Negative Negative [facility] Urobilinogen UA <2.0 <2.0 mg/dL [facility] RBC UA 1 0 - 8 /HPF [facility] WBC UA <1 0 - 2 /HPF [facility] Urine specimen (specimen) 03/10/2017 12:04 PM PROFESSOR OF BIOSTATISTICS 03/10/2017 12:16 PM PROFESSOR OF BIOSTATISTICS Javon Disla MD LAB - URINALYSIS ORD ERABLES [address] [phone] * XR ABD OBSTRUCTION SERIES 2VW (03/10/2017 12:00 PM PROFESSOR OF BIOSTATISTICS) Anatomical Region Laterality Modality Abdomen Other Impressions 03/10/2017 1:17 PM PROFESSOR OF BIOSTATISTICS Impression: Multiple mildly dilated loops of small bowel with air-fluid levels may represent an ileus versus partial small bowel obstruction. Dictated by Robbin Mireles MD (Resident) Dr. MAKEDA Mata M.D. have personally reviewed and interpreted this examination/study. This report was electronically signed by MAKEDA MORA M.D. on 03/10/2017 1:17 PM . Narrative 03/10/2017 1:17 PM PROFESSOR OF BIOSTATISTICS Exam: XR ABD OBSTRUCTION SERIES Date: 03/10/2017 [...] labs. Reported dictated by Ramiro Khalil MD (engineering vice president). The attending physician, Dr Marte, was present [...] pole cyst was accessed using a 5 Indian coaxial system. Aspiration yielded approximately 200 mL [...] pole cyst was accessed using a 5 Indian coaxial system.Aspiration yielded approximately 200 mL of [...] labs. Reported dictated by Ramiro Khalil MD (engineering vice president). The attending physician, Dr Marte, was present [...] labs. Reported dictated by Ramiro Khalil MD (engineering vice president). The attending physician, Dr Marte, was present [...] pole cyst was accessed using a 5 Indian coaxial system. Aspiration yielded approximately 200 mL [...] pole cyst was accessed using a 5 Indian coaxial system.Aspiration yielded approximately 200 mL of [...] labs. Reported dictated by Ramiro Khalil MD (engineering vice president). The attending physician, Dr Marte, was present for the entireprocedure. This report was approved by Ramiro Khalil M.D. on 08/29/2013 7:22 PM . I, Dr. RENETTA MARTE M.D. have personally reviewed and interpreted thisexamination/study. This report was electronically signed by RENETTA MARTE M.D. on08/30/2013 7:07 PM . Amilcar Retana MD CT ORDERABLE S * CYTOLOGY NON-RUG SETTER VELVET PANEL (STL) (08/29/2013 10:27 AM CDT) Cytology Non-Oil Pumper Reference: [id number] Specimen: RENAL, CYST, LEFT Clinical History: Renal [...] by Jeff Cartagena MD. Electronically signed 08/30/[address] [facility] ([facility]) Other (qualifier value) 08/29/2013 10:27 AM CDT 08/29/2013 2:21 PM CDT Narrative [facility] ([facility]) - 08/30/2013 4:44 PM CDT Diagnosis->renal cyst Collection Date->08/29/13 Collection Time->10:20 AM Specimen A->Fine Needle Aspirate Left Renal Cyst Renetta Marte MD LAB - PATHOLOGY/CYTO LOGY ORDERABLES [facility] ([facility]) * PTT [facility] (08/29/2013 8:55 AM CDT) APTT 25.4 23.0 - 38.4 Seconds [facility] Comment:Suggested therapeuti c range for full dose I.V. heparin therapy for venous thromboembolism is 66.0-91.0 seconds. Blood specimen (specimen) BLOOD SPECIMEN / Unknown 08/29/2013 8:55 AM CDT 08/29/2013 9:01 AM CDT Narrative [facility] - 08/29/2013 9:34 AM CDT Is patient on Heparin, Argatroban or Dabigatran?->N Renetta Marte MD LAB - COAGULATION OR DERABLES Performing Organization Address [facility]/ZIP Co de Phone Number [address] [phone] * PT-INR [facility] (08/29/2013 8:55 AM CDT) PT 12.9 12.1 - 14.8 Seconds [facility] INR 1.0 See Comment [facility] Comment: Suggested therapeutic range for low-intensity coumadin therapy for venous thromboembolism prophylaxis is an INR of 2.0-3.0. For high risk patients (Mitral Valve Prosthesis, Atrial Fibrillation, history of TIA/stroke), suggested prophylactic therapeutic range is an INR of 2.5-3.5. Blood specimen (specimen) BLOOD SPECIMEN / Unknown 08/29/2013 8:55 AM CDT 08/29/2013 9:01 AM CDT Narrative [facility] - 08/29/2013 9:34 AM CDT Is patient on Heparin, Argatroban or Dabigatran?->N Renetta Marte MD LAB - COAGULATION OR DERABLES Performing Organization Address City/[facility]/ZIP Co de Phone Number [address] [phone] * (ABNORMAL) URINALYSIS AUTO - POINT OF CARE (AMB) [facility] (08/15/2013) Only the most recent of2 resultswithin the time period is included. Glucose UA neg [facility] Bilirubin UA POCT neg [facility] Ketones UA POCT neg [facility] Specific [place] UA 1.025 [facility] Blood Urine POCT 25Ery/uL( A) [facility] pH UA 6.0 [facility] Protein UA 0.15g/L(A ) [facility] Urobilinogen UA 3.5 [facility] Nitrite UA neg [facility] WBC UA neg [facility] Urine specimen (specimen) 08/15/2013 Amilcar Retana MD LAB - POINT OF CARE ORDERABLES [facility] * RETROPERITONEAL COMPLETE (11/18/2011 3:28 PM [...] is included. 11/18/2011 8:26 AM CDT Narrative [facility] - 11/18/2011 8:26 AM CDT Historical Provider LAB - PATHOLOGY/C YTOLOGY ORDERABLES Performing Organization Address [facility] Co de Phone Number [place] [phone] [address] * PATHOLOGY TISSUE (10/30/2011 4:26 PM CDT) Only the most recent of2 resultswithin the time period is included. 10/30/2011 4:26 PM CDT Narrative [facility] - 10/30/2011 4:26 PM CDT [...] - PATHOLOGY/CYTO LOGY ORDERABLES Performing Organization Address [facility] Co de Phone Number [place] [phone] [address] * PATHOLOGY/GENETICS HISTORICAL-ONBASE (04/26/2010) 04/26/2010 Historical Provider LAB - CHEMISTRY O RDERABLES Performing Organization Address [facility] Co de Phone Number [facility] * HLA - HPF HISTORICAL REPORTS (08/27/2008 9:22 AM CDT) 08/27/2008 9:22 AM CDT Narrative [facility] - 08/27/2008 9:22 AM CDT Venessa Reardno MD LAB - PATHOLOGY/CYT OLOGY ORDERABLES [facility] Care Teams Associate Professor Computer Science Relationship Specialty Start Date End Date Ryan Minor DO [address] [place] [address] PCP - General 07/02/19
--- OUTSIDE RECORDS SUMMARY | 2024-06-21 13:15 | XMS_ITS | Encounter Summary ---
Author Organization [facility] Address [address] [facility] [place] [address] Care Team Providers Care Construction Project Coordinator Name Role Phone Ryan Minor DO Primary Care Provider [phone] Encounter Details Date Type Department Care Team (Late st Contact Info) Description 08/30/2021 Telephone [facility] [address] [place] [address] Robbin Yun MD [address] OF PULMONARY/[place] [address] Social History Tobacco Use Types Packs/Day Years [...] a sleep study. Patient Call Back number: [phone] documented in this encounter Plan of Treatment Not on file documented as of this encounter Visit Diagnoses Not on filedocumented in this encounter Care Teams Construction Project Coordinator Relationship Specialty Start Date End Date Ryan Minor DO [address] [place] [address] PCP - General 07/02/19 documented as of this encounter
--- OUTSIDE RECORDS SUMMARY | 2024-06-21 13:15 | XMS_ITS | Continuity of Care Document ---
Author Organization [facility] Address [address] [place] [address] Phone Care Team Providers Care Seedling Sorter Name Role Phone Daquan Redman MD Unavailable [...] Providers Copied on Encounter Office/outpat ient visit,est, [facility], [address], [id number], tel:[phone] [facility] No Information 9 Юлия Butt. [address] [facility], [place] [address], [place], [place], [id number] , [place]. tel:[phone] [facility], [address] [place] [address], [id number], tel:[phone] [facility] No Information 9 Юлия Butt. [address] [facility], [address], [place], [place], [id number] , [place]. tel: [phone] [facility], [address] [facility] [address], [place], [place], [id number], [place] [phone] [facility] No Information [address] Butt. [address] [facility], [facility] [address], [place], [place], [id number] , [place]. tel: [phone] [facility], [address] [facility] [address], [place], [id number], [place] [phone] [facility] No Information 9 Юлия Butt. [address] [facility], [facility] [address], [place], [place], [id number] , [place]. tel: [phone] Office/outpat ient visit,[facility], [address], [id number], [place] tel:[phone] [facility] No Information 9 Юлия Butt. [address] [facility], [facility] [address], [place], [place], [id number] , [place]. tel: [phone] Office/outpat ient visit,[facility], [address], [id number], [place] tel:[phone] [facility] No Information [address] Butt. [address] [facility], [address], [place], [place], [id number] , [place]. tel:[phone] Referring Provider: Luis Felipe Godwin, [address], [place], [address]. tel:[phone] Family History Family Member Type Diagnosis Age At Onset No Information Payers Payer name Insurance type Covered republican ID Authoriza praful(s) [place] [employer] Shiclaudine [facility] [id number] Social History Type Description Quantity Date Captured [...]
--- OUTSIDE RECORDS SUMMARY | 2024-06-21 13:15 | XMS_ITS | Encounter Summary ---
Author Organization [facility] Address [address] [place] [address] Care Team Providers Care Tank Processor Name Role Phone Ryan Minor Primary Care Provider [phone] Encounter Details Date Type Department Care Team (Late st Contact Info) Description 08/12/2021 Telephone [facility] [address] [place] [address] Pi, [place] [address] [facility] [address] [place] [address] Social History Tobacco Use Types [...] apointment teressa for cataracts. Her MRN is [id number]. Her appointment with shila was bumped her phone number is [phone] documented in this encounter Plan of Treatment Not on file documented as of this encounter Visit Diagnoses Not on filedocumented in this encounter Care Teams Tank Processor Relationship Specialty Start Date End Date Ryan Minor DO [address] [place] [id number] PCP - General 07/02/19 documented as of this encounter
--- OUTSIDE RECORDS SUMMARY | 2024-06-21 13:15 | XMS_ITS | Clinical Summary ---
Author Organization [facility] Address [address] [place] [address] Care Team Providers Care Applications Programmer Analyst Name Role Phone Ryan Minor DO Primary Care Provider [phone] Source Comments [facility],non-owned Affiliates and Associated Physician Practices is amultiple site organization consisting of ambulatory clinics and hospital sitesin [place], [place], [place] and [place]. This disclosure is being madepursuant to the Care Everywhere program and may not contain all information available regarding this patient. Last updated 17.[facility] Allergies Active Allergy Reactions Criticality Noted Date [...] sprayIndications:Aller gic rhinitis, unspecified seasonality, unspecified trigger [place] 2 (two) sprays into each nostril once [...] this topic Medical Devices Implanted Type Area Visual Journalist Device Identifier Shelf Expiration Date Model / Serial / Lot Cmnt Bone Cblt 40gm Hvisc Strl Implanted:Qty: 1 on 04/30/2018 by Az Mckenna MD at [facility] Right: Knee [employer] 08/24/2019 [id number] / / [id number] Cmpnt Ptlr 28mm 1 Pg Wire Ascnt Arcm Kn Implanted:Qty: 1 on 04/30/2018 by Az Mckenna MD at [facility] Right: Knee [employer] 04/04/2023 [id number] / / [id number] Cmpnt Fem Kn Rt Cr Cmnt Prm Vngrd Intlk 62.5mm Implanted:Qty: 1 on 04/30/2018 by Az Mckenna MD at [facility] Right: Knee [employer] 02/05/2028 [id number] / / [id number] Tray Tib 71mm Kn Cocr I Beam Implanted:Qty: 1 on 04/30/2018 by Az Mckenna MD at [facility] Right: Knee [employer] 02/10/2028 [id number] / / [id number] Brng 32ndq93nn Vngrd Arcm Kn Ant Stab Implanted:Qty: 1 on 04/30/2018 by Az Mckenna MD at [facility] Right: Knee [employer] 01/18/2023 [id number] / / [id number] Lens Iol 0 D +20 Marlo Mod L Bcnvx Acrsf - [id number] Implanted:Qty: 1 on 11/15/2021 by Liam Briot MD at [facility] Left: Eye [employer] 09/19/2026 SN60WF.200 / [id number] / Lens Iol 0 D +21.5 Marlo Mod L Bcnvx - [id number] Implanted:Qty: 1 on 11/29/2021 by Liam Brito MD at [facility] Right: Eye [employer] 09/25/2026 SN60WF.215 / [id number] / Procedures Procedure Name Priority Date/Time Associated Diagnosis Comments COMPREHENSIVE METABOLIC PANEL Routine 04/12/2018 2:15 PM CHILD THERAPIST Preop examination from Last 3 Months or Most Recently Relevant to Health Maintenance Results * (ABNORMAL) COMPREHENSIVE METABOLIC PANEL (04/12/2018 2:15 PM CHILD THERAPIST) Glucose 98 74 - 106 mg/dL 04/12/2018 3:03 PM [facility] Sodium 137 136 - 145 mmol/L 04/12/2018 3:03 PM [facility] Potassium 4.2 3.5 - 5.1 mmol/L 04/12/2018 3:03 PM [facility] Chloride 104 98 - 107 mmol/L 04/12/2018 3:03 PM [facility] CO2 30 22 - 31 mmol/L 04/12/2018 3:03 PM CHILD THERAPIST [facility] Calcium 8.4(L) 8.5 - 10.1 mg/dL 04/12/2018 3:03 PM [facility] Anion Gap 3(L) 8 - 16 mmol/L 04/12/2018 3:03 PM [facility] BUN 20 7 - 21 mg/dL 04/12/2018 3:03 PM [facility] Creatinine 0.88 0.50 - 1.30 mg/dL 04/12/2018 3:03 PM [facility] Alkaline Phosphatase 75 38 - 126 U/L 04/12/2018 3:03 PM CHILD THERAPIST [facility] ALT 23 13 - 61 U/L 04/12/2018 3:03 PM CHILD THERAPIST [facility] AST 12 5 - 40 U/L 04/12/2018 3:03 PM CHILD THERAPIST [facility] Protein Total 6.9 6.4 - 8.2 gm/dL 04/12/2018 3:03 PM CHILD THERAPIST [facility] Albumin 3.5 3.4 - 5.0 gm/dL 04/12/2018 3:03 PM CHILD THERAPIST [facility] Bilirubin Total 0.2 0.2 - 1.0 mg/dL 04/12/2018 3:03 PM CHILD THERAPIST [facility] eGFR by MDRD >60 >60 mL/min/1.7 3m2 04/12/2018 3:03 PM CHILD THERAPIST [facility] eGFR by MDRD >60 >60 mL/min/1.7 3m2 04/12/2018 3:03 PM CHILD THERAPIST [facility] Blood BLOOD SPECIMEN / Unknown Venipuncture / Unknown 04/12/2018 2:15 PM CHILD THERAPIST 04/12/2018 2:41 PM CHILD THERAPIST Az Mckenna MD LAB - CHEMISTRY ANDI VILLEDA [facility] Organization Address City/State/ZIP Co de Phone Number [facility] [address] [place] [phone] from Last 3 Months or Most Recently Relevant to Health Maintenance Advance Directives * Full Code (Latest Code Status on File) Date Activated Date Inactivated Comments 04/30/2018 1:54 PM 05/02/2018 2:43 PM Care Teams Applications Programmer Analyst Relationship Specialty Start Date End Date Ryan Minor DO [address] [place] [address] PCP - General 07/02/19
--- NOTE | 2024-06-21 13:20 | ECG_ITS ---
Test Date: 2024-06-21 13:26:50 Measurements Intervals [place] Rate: 66 P: 56 FL: 160 QRS: -4 QRSD: 71 T: 28 QT: 373 QTc: 392 Interpretive Statements SINUS RHYTHM NONSPECIFIC T-WAVE ABNORMALITY Electronically Signed On 06-23-2024 13:50:35 CDT by Barron Holbrook D.O
[2024-06-21 14:00] LABS: Troponin I < 0.012 ng/mL (0.000-0.034)
[2024-06-21 14:45] VITALS: BP 122/67; PULSE 68; RESP 14; O2SAT 95
== END 2024-06-21 15:10 | disposition home or self-care (01) ==
PROVIDERS: Family Medicine; Emergency Provider Student in an Organized Health Care Education/Training Program; PCP Nurse Practitioner
DX: R07.2 Precordial pain (principal); I27.82 Chronic pulmonary embolism; F03.90 Unspecified dementia, unspecified severity, without behavioral disturbance, psychotic disturbance, mood disturbance, and anxiety; E78.00 Pure hypercholesterolemia, unspecified; N28.9 Disorder of kidney and ureter, unspecified; G25.81 Restless legs syndrome; K21.9 Gastro-esophageal reflux disease without esophagitis; M19.90 Unspecified osteoarthritis, unspecified site; H59.023 Cataract (lens) fragments in eye following cataract surgery, bilateral; F41.9 Anxiety disorder, unspecified; Z96.659 Presence of unspecified artificial knee joint; Z86.2 Personal history of diseases of the blood and blood-forming organs and certain disorders involving the immune mechanism; Z86.73 Personal history of transient ischemic attack (TIA), and cerebral infarction without residual deficits; Z86.16 Personal history of COVID-19; Z87.891 Personal history of nicotine dependence; Z79.899 Other long term (current) drug therapy; R94.31 Abnormal electrocardiogram [ECG] [EKG]
CPT/HCPCS: 36415; 71046; 71275; 80053; 83690; 84484; 85025; 85380; 85610; 85730; 93005; 99284; A9270; Q9967

== ENCOUNTER 2024-12-08 12:44 | Emergency (ER) | payer MEDICARE, BC, SELFPAY ==
--- OUTSIDE RECORDS SUMMARY | 2009-03-18 11:20 | XMS_ITS | Continuity of Care Document ---
Author Organization [facility] Address [address] [facility] [address] [place] [address] Phone Care Team Providers Care Hotel Yardperson Name Role Phone Daquan Redman MD Unavailable Unavailable Procedures Procedure Date Office/outpatient visit,ronen blackwood 2008 X-ray exam of knee, 1 or2 views 009 X-ray exam of both knees, standing Postop followup visit Postop followup visit Knee arthscpy mnsctmy medial or lat Office/outpatient visit,est, mod 2008 Office/outpatient visit,new, mod 2008 X-ray exam of knee, 3 views X-ray exam of both knees, standing Advance Directives Directive Yes / No Effective Date File Name No Information Encounters Encounter Description Practice Location Reason(s) For Visit Diagnoses Date Provider Providers Copied on Encounter Office/outpat ient visit,est, [facility], [address], [id number], tel:[phone] [facility] No Information 9 Юлия Butt. [address] [facility], [place] [address], [place], [place], [id number] , [place]. tel: [phone] [facility], [address] [place] [address], [id number], tel:[phone] [facility] No Information 9 Юлия Butt. [address] [facility], [address], [place], [place], [id number] , [place]. tel: [phone] [facility], [address] [facility] [address], [place], [place], [id number], [place] [phone] [facility] No Information 9200 9 Юлия Butt. [address] [facility], [facility] [address], [place], [place], [id number] , [place]. tel: [phone] [facility], [address] [facility] [address], [place], [id number], [place] [phone] [facility] No Information 9 Юлия Butt. [address] [facility], [facility] [address], [place], [place], [id number] , [place]. tel: [phone] Office/outpat ient visit,[facility], [address], [id number], [place] tel:[phone] [facility] No Information 9 Юлия Butt. [address] [facility], [facility] [address], [place], [place], [id number] , [place]. tel: [phone] Office/outpat ient visit,[facility], [address], [id number], [place] tel:[phone] [facility] No Information 0200 9 Юлия Butt. [address] [facility], [address], [place], [place], [id number] , [place]. tel:[phone] Referring Provider: Luis Felipe Godwin, [address], [place], [address]. tel:[phone] Family History Family Member Type Diagnosis Age At Onset No Information Payers Payer name Insurance type Covered green party ID Authoriza praful(s) [place] [employer] Edison Shiclaudine [facility] [id number] Social History Type Description Quantity Date Captured Comments Sex Female Smoking Status No Information Chief Complaint And Reason For Visit No Information Reason For Referral Reason For Referral No Information History Of Present Illness Encounter Date Complaint History Of Prese nt Illness No Information Functional Status Date Functional Assessmen t No Information Instructions Date Instruction Additional Infor mation No Information Assessments Type Assessment Date No Information Patient Care Teams Name Effective Dates (start - stop) Status Members No Information
--- OUTSIDE RECORDS SUMMARY | 2009-03-18 11:20 | XMS_ITS | Continuity of Care Document ---
Author Organization [facility] Address [address] [facility] [address] [place] [address] Phone Care Team Providers Care Sas Programmer Name Role Phone Daquan Redman MD Unavailable [...] Providers Copied on Encounter Office/outpat ient visit,est, [facility], [address], [id number], tel:[phone] [facility] No Information 9 Юлия Butt. [address] [facility], [place] [address], [place], [place], [id number] , [place]. tel: [phone] [facility], [address] [place] [address], [id number], tel:[phone] [facility] No Information 9 Юлия Butt. [address] [facility], [address], [place], [place], [address] , [place]. tel: [phone] [facility], [address] [facility] [address], [place], [place], [id number], [place] [phone] [facility] No Information 9200 9 Юлия Butt. [address] [facility], [facility] 100, [place], [place], [address] , [place]. tel: [phone] [facility], [address] [facility] 100[place], [place], [id number], [place] [phone] [facility] No Information 9 Юлия Butt. [address] [facility], [facility] 100, [place], [place], [address] , [place]. tel: [phone] Office/outpat ient visit,[facility], [address], [id number], [place] tel:[phone] [facility] No Information 9 Юлия Butt. [address] [facility], [facility] 100, [place], [place], [address] , [place]. tel: [phone] Office/outpat ient visit,[facility], [address], [id number], [place] tel:[phone] [facility] [employer] [facility] No Information 0200 9 лЮия Butt. [address] [facility], [address], [place], [place], [address] , [place]. tel:[phone] Referring Provider: Luis Felipe Godwin, [address], [place], [address]. tel:[phone] Family History Family Member Type Diagnosis Age At Onset No Information Payers Payer name Insurance type Covered alliance party ID Authoriza praful(s) [place] [employer] Edison Shiclaudine [facility] [id number] Social History Type Description Quantity Date Captured [...]
--- OUTSIDE RECORDS SUMMARY | 2010-01-14 04:00 | XMS_ITS | Continuity of Care Document ---
Author Organization [facility] Address [address] [place] [address] [place] [address] Phone Care Team Providers Care Wastewater Treatment Engineer Name Role Phone Qian Stokes Unavailable Unavailable Procedures Procedure Date Eye Exam Established Pt Visual Field Examination(s) Eye Exam Established Pt Office/outpatient Visit, Est Eye Exam, New Patient Advance Directives Directive Yes / No Effective Date File Name No Information Encounters Encounter Description Practice Location Reason(s) For Visit Diagnoses Date Provider Providers Copied on Encounter [facility], [address] [place] [address] [address], [place], [place], [id number], tel:[phone] [facility] No Information Jan-0 7-201 0 Divya Velazquez [address] [facility] [address] , [address], [place], [place], [facility], [place]. tel:[phone] [facility], [address] [place] [address] [address], [place], [place], [address], [place] tel:[phone] [facility] No Information 9-200 8 Divya Velazquez [address] [facility] , [address], [place], [address], [place]. tel:[phone] Referring Provider: Qian Stephenson [address] [facility] [address], [place], [place], [facility]. tel:[phone] [facility], [address], [place], [place], [address], [place] tel:[phone] [facility] No Information 8 Divya Laughlin. [address] [facility], [place], [address], [place]. tel:[phone] Office/outpat ient Visit, Est [facility], [address], [place], [place], [address], [place] tel:[phone] [facility] No Information 0 200 7 Serjio Garcia. [address], [address], [place], [place], [id number], [place]. tel:[phone] [facility], [address] [facility] [address], [place], [place], [address], [place] tel:[phone] [facility] No Information 7 Divya Laughlin. [address] [facility] , [address], [place], [address], [place]. tel:[phone] Family History Family Member Type Diagnosis Age At Onset No Information Payers Payer name Insurance type Covered green party ID Authoriza tion(s) No Information Social History Type Description Quantity Date Captured [...]
--- OUTSIDE RECORDS SUMMARY | 2010-01-14 04:00 | XMS_ITS | Continuity of Care Document ---
Author Organization [facility] Address [address] [place] [address] [place] [address] Phone Care Team Providers Care Toolmaker Grade Three Name Role Phone Qian Stokes Unavailable Unavailable Procedures Procedure Date Eye Exam Established Pt Visual Field Examination(s) Eye Exam Established Pt Office/outpatient Visit, Est Eye Exam, New Patient Advance Directives Directive Yes / No Effective Date File Name No Information Encounters Encounter Description Practice Location Reason(s) For Visit Diagnoses Date Provider Providers Copied on Encounter [facility], [address] [place] [address] [address], [place], [place], [id number], tel:[phone] [facility] No Information Jan-0 7-[address] [facility] [place] , [address], [place], [place], [facility], [place]. tel:[phone] [facility], [address] [place] [address] [address], [place], [place], [address], [place] tel:[phone] [facility] No Information 9-200 8 Divya Velazquez [address] [facility] , [address], [place], [address], [place]. tel:[phone] Referring Provider: Qian Stephenson [address] [facility] [place] [address], [place], [place], [facility]. tel:[phone] [facility], [address], [place], [place], [address], [place] tel:[phone] [facility] No Information 8 Divya Laughlin. [address] [facility] [facility] [address], [place], [address], [place]. tel:[phone] Office/outpat ient Visit, Est [facility], [address], [place], [place], [address], [place] tel:[phone] [facility] No Information 0 200 7 Serjio Garcia. [address], [place], [place], [address], [place]. tel:[phone] [facility], [address] [facility] [address], [place], [place], [address], [place] tel:[phone] [facility] No Information 7 Divya Laughlin. [address] [facility] , [address], [place], [address], [place]. tel:[phone] Family History Family Member Type Diagnosis Age At Onset No Information Payers Payer name Insurance type Covered democrat ID Authoriza tion(s) No Information Social History [...]
--- NOTE | ~2024-12-08 | XR_ITS ---
EXAMINATION: XR chest 2V DATE: 12/08/2024 13:15 INDICATION: Heart racing. Chest pain. TECHNIQUE: PA and lateral views of the chest were obtained. COMPARISON: Chest radiograph and CT dated 06/21/2024 FINDINGS: The lungs remain clear with no focal airspace opacities, pulmonary edema, pleural effusion or pneumothorax. The cardiomediastinal silhouette is normal. Cholecystectomy clips in right upper quadrant. Mild thoracic spondylosis. IMPRESSION: 1. No acute cardiopulmonary disease. Reviewed, dictated and finalized at location A.
--- NOTE | 2024-12-08 12:46 | ECG_ITS ---
Test Date: 2024-12-08 12:56:22 Measurements Intervals [place] Rate: 91 P: 5 [place]: 134 QRS: -15 QRSD: 62 T: 37 QT: 304 QTc: 375 Interpretive Statements SINUS RHYTHM DELAYED PRECORDIAL R/S TRANSITION LOW QRS VOLTAGE IN PRECORDIAL LEADS CONSIDER INFERIOR INFARCT, AGE INDETERMINATE BORDERLINE T WAVE ABNORMALITY- ANTERIOR LEADS BASELINE ARTIFACT- I, II, III, AVR, AVL, AVF, V1-V6 ABNORMAL ECG Compared to ECG 06/21/2024 13:26:50 NO SIGNIFICANT CHANGE Electronically Signed On 12-08-2024 16:04:35 CDT by Robby Choi D.O.
--- OUTSIDE RECORDS SUMMARY | 2024-12-08 12:47 | XMS_ITS | Encounter Summary ---
Author Organization [facility] Address [address] [facility] [place] [address] Care Team Providers Care Helmet Hat Puncher Name Role Phone Ryan Minor Primary Care Provider [phone] Encounter Details Date Type Department Care Team (Late st Contact Info) Description 08/12/2021 Telephone [facility] [address] [place] [address] Pi, [place] [address] [facility] [address] [place] [address] Social History Tobacco Use Types Packs/Day Years Used Date Smoking Tobacco: Former Smokeless Tobacco: Never Comments:quit 40 years ago Alcohol Use Standard Drinks/Week Comments No 0 (1 standard drink = 0.6 oz pur e alcohol) Comments No Sex and Gender Information Value Date Recorded Sex Assigned at Not on file Legal Sex Female 6:09 PM PAINTER SPRAY Gender Identity Not on file Sexual Orientation Not on file documented as of this encounter Functional Status * Is person deaf or have serious hearing difficulty? Answer Date of Assessment Author No 04/30/2018 2:06 PM PAINTER SPRAY Robbie Lanza RN * Is person blind or have serious difficulty seeing? Answer Date of Assessment Author No 04/30/2018 2:06 PM Robbie Sanders RN * Does person have serious difficulty walking/climbing stairs? Answer Date of Assessment Author Yes 04/30/2018 2:06 PM Robbie Sanders RN * Does person have difficulty dressing/bathing? Answer Date of Assessment Author No 04/30/2018 2:06 PM Robbie Sanders RN * Does person have difficulty doing errands alone? Answer Date of Assessment Author No 04/30/2018 2:06 PM Robbie Sanders RN documented as of this encounter Mental Status * Does person have difficulty concentrating/remembering/making decisions? Answer Entry Date Author No 04/30/2018 2:06 PM Robbie Sanders RN documented in this encounter Miscellaneous Notes * Telephone Encounter - Jamar Metz - 08/12/2021 8:39 AM CDT Pt called wanting to get an apointment teressa for cataracts. [place] [id number]. Her appointment with shila was bumped her phone number is [phone] documented in this encounter Plan of Treatment Not on file documented as of this encounter Visit Diagnoses Not on filedocumented in this encounter Care Teams Helmet Hat Puncher Relationship Specialty Start Date End Date Ryan Minor DO [address] [place] [address] PCP - General 07/02/19 documented as of this encounter
--- OUTSIDE RECORDS SUMMARY | 2024-12-08 12:47 | XMS_ITS | Encounter Summary ---
Author Organization [facility] Address [address] [facility] [place] [address] Care Team Providers Care Medical Office Technologist Name Role Phone Ryan Minor DO Primary Care Provider [phone] Encounter Details Date Type Department Care Team (Late st Contact Info) Description 08/30/2021 Telephone [facility] [address] [place] [address] Ryan Minor DO [address] [place] [address] Social History Tobacco Use Types Packs/Day Years Used Date Smoking Tobacco: Former Smokeless Tobacco: Never Comments:quit 40 years ago Alcohol Use Standard Drinks/Week Comments No 0 (1 standard drink = 0.6 oz pur e alcohol) Comments No Sex and Gender Information Value Date Recorded Sex Assigned at Not on file Legal Sex Female 6:09 PM TOOL CRIB LEAD Gender Identity Not on file Sexual Orientation Not on file documented as of this encounter Functional Status * Is person deaf or have serious hearing difficulty? Answer Date of Assessment Author No 04/30/2018 2:06 PM Robbie Sanders RN * Is person blind or have [...] Robbie Sanders RN documented in this encounter Plan of Treatment Not on file documented as of this encounter Visit Diagnoses Not on filedocumented in this encounter Care Teams Medical Office Technologist Relationship Specialty Start Date End Date Ryan Minor DO [address] [place] [address] PCP - General 07/02/19 documented as of this encounter
--- OUTSIDE RECORDS SUMMARY | 2024-12-08 12:47 | XMS_ITS | Encounter Summary ---
Author Organization [facility] Health Address [address] [facility] [place] [address] Care Team Providers Care Historical Manuscripts Curator Name Role Phone Ryan Minor Primary Care Provider [phone] Encounter Details Date Type Department Care Team (Late st Contact Info) Description 08/30/2021 Telephone [facility] [address] [place] [address] Robbin Yun MD [address] [address] Social History Tobacco Use Types Packs/Day Years Used Date Smoking Tobacco: Former Smokeless Tobacco: Never Comments:quit 40 years ago Alcohol Use Standard Drinks/Week Comments No 0 (1 standard drink = 0.6 oz pur e alcohol) Comments No Sex and Gender Information Value Date Recorded Sex Assigned at Not on file Legal Sex Female 6:09 PM DEBRANDER Gender Identity Not on file Sexual Orientation Not on file documented as of this encounter Functional Status * Is person deaf or have serious hearing difficulty? Answer Date of Assessment Author No 04/30/2018 2:06 PM DEBRANDER Robbie Lanza RN * Is person blind [...] encounter Miscellaneous Notes * Telephone Encounter - Naye Aguilar - 08/30/2021 2:25 PM CDT Current Provider name:EDGAR Reason for call: Pt would like a call back about her upcoming appoinment this week. She is not clear on what this appointment is exactly. She was under the impression she was having a sleep study. Patient Call Back number: [phone] documented in this encounter Plan of Treatment Not on file documented as of this encounter Visit Diagnoses Not on filedocumented in this encounter Care Teams Historical Manuscripts Curator Relationship Specialty Start Date End Date Ryan Minor DO [address] [place] [address] PCP - General 07/02/19 documented as of this encounter
--- OUTSIDE RECORDS SUMMARY | 2024-12-08 12:47 | XMS_ITS | Clinical Summary ---
Author Organization [facility] Address [address] [place] [address] Care Team Providers Care Glost Tile Shader Name Role Phone Ryan Minor DO Primary Care Provider [phone] Social History Tobacco Use Types Packs/Day Years [...] 1 - Tdap) 02/28/1971 Mammogram Screening 1992 Pneumococcal Vaccine: 50+ Ye ars (1 of 1 - PCV) 02/28/2002 Zoster Vaccines (1 of 2) 02/28/2002 Dexa Scan (General) 02/28/2017 COVID-19 Vaccine ( - 2023-2 5 season) 2023 RSV Immunization or 60+ Years (1 - [...] age to complete this topic Insurance [employer] [facility] [place] [id number] Care Teams Glost Tile Shader Relationship Specialty Start Date End Date Ryan Minor DO [address] [address] PCP - General INTERNAL MEDICINE 07/30/19
--- OUTSIDE RECORDS SUMMARY | 2024-12-08 12:47 | XMS_ITS | Patient Health Record ---
Author Organization [facility] Address [address] [facility] [address] [place] [address] Care Team Providers Care Rehabilitation Physician Name Role Phone Lorena Gonzalez [phone] Reason For Referral No Information Medications Medication SIG (Take, Route, Frequency, Duration) Notes Start Date End Date Status Levothyroxine Sodium 88 MCG Tablet Oral 08/14/2018 Active busPIRone HCl 15 MG Tablet Oral 08/14/2018 Active clonazePAM 1 MG Tablet Oral 08/14/2018 Active rOPINIRole HCl 1 MG Tablet Oral 08/14/2018 Active HYDROcodone-Acetaminophen 10-325 MG Tablet Oral 08/14/2018 Active Linzess 290 MCG Capsule Oral 08/14/2018 Active traZODone HCl 150 MG Tablet Oral 08/14/2018 Active Venlafaxine HCl ER 150 MG Capsule Extended Release 24 Hour Oral 08/14/2018 Active Losartan Potassium 50 MG Tablet Oral 08/14/2018 Active Amoxicillin 500 MG Capsule Oral 08/14/2018 Active Celecoxib 200 MG Capsule Oral 08/14/2018 Active Social History Social History Additional Details Category Social Info Options Details Migrated Social History Migrated Social History Alcohol Intake: Occasional 07/09/2018,Tobacco Years: Former smoker 07/09/2018,Smoking Status: 39 07/09/2018 Plan Of Treatment No Information Insurance Providers Payer Name Payer Address Payer Phone Subscriber Number Group Number Insured Name Patient Relationship to Insured Coverage Start Date Coverage End Date [employer] Medicare Replacemen t/Advantag e - P[place] [address] [address] [place] [address] [id number] AJ PELAEZ Self - patient is the insured [place] - Fep Ppo [address] [place] [address] [id number] ALIX PELAEZ Spouse - patient is the spouse of the insured
--- OUTSIDE RECORDS SUMMARY | 2024-12-08 12:47 | XMS_ITS | Clinical Summary ---
Author Organization [facility] [email or web address] Address [address] [facility] [place] [address] Care Team Providers Care Business Law Professor Name Role Phone Ryan Minor Primary Care Provider [phone] Source Comments [facility],non-owned Affiliates and Associated Physician Practices is amultiple site organization consisting of ambulatory clinics and hospital sitesin [place], [place], [place] and [place]. This disclosure is being madepursuant to the Care Everywhere program and may not contain all information available regarding this patient. Last updated 17.[facility] [email or web address] Allergies Active Allergy Reactions Criticality Noted Date Comments Elliott Other Low 08/18/2010 PT DENIES THIS ALLERGY/ Achy joints, Achy joints, Achy joints Medications * Be aware that medications may not be up to date on this document. Alwaysverify current medications with the patient. venlafaxine XR 24hr (EFFEXOR XR) 150 MG capsule Take 1 capsule by mouth once daily 0 8 Active traZODone (DESYREL) 150 MG tablet Take 1 tablet by mouth at bedtime 1 8 Active busPIRone (BUSPAR) 15 MG tablet Take 15 mg by mouth at bedtime Active clonazePAM (KLONOPIN) 1 MG tablet TAKE 1 TABLET BY MOUTH THREE TIMES DAILY NEEDED FOR INSOMNIA 2 Active rOPINIRole (REQUIP) 1 MG tablet 2 Active fluticasone propionate (FLONASE) 50 MCG/ACT nasal sprayIndications :Allergic rhinitis, unspecified seasonality, unspecified trigger Reading 2 (two) sprays into each nostril once daily 48 g 4 2 Active LINZESS 290 MCG capsule 2 Active Active Problems Problem Noted Date Diagnosed [...] disorder 08/05/2010 Hypersomnia 08/05/2010 Hypothyroidism 08/05/2010 Immunizations Immunization Administration Dates Next Due INFLUENZA VACCINE, TRIV. [...] more drinks on one occasion? Never 11/15/2021 Comments No Sex and Gender Information Value Date Recorded Sex Assigned at Not on file Legal Sex Female 6:09 PM AVIATION OPERATIONS SPECIALIST Gender Identity Not on file Sexual Orientation [...] 08/20/2021 9, 03/10/2017, 08/29/2013 COVID-19 VACCINE (4 2023-2 5 season) 2023 02/05/2021, 06/22/2020, 05/28/2020 DEPRESSION SCREENING 04/10/2024 INFLUENZA VACCINE (#1) 2024 9, 04/10/2010 HEPATITIS B VACCINE Aged Out No longe [...] this topic Medical Devices Implanted Type Area Pocket Grinder Operator Device Identifier Shelf Expiration Date Model / Serial / Lot Cmnt Bone Cblt 40gm Hvisc Strl Implanted:Qty: 1 on 04/30/2018 by Alix Mckenna MD at [facility] Right: Knee [employer] 08/24/2019 600-15-000 / / [id number] Cmpnt Ptlr 28mm 1 Pg Wire Ascnt Arcm Kn Implanted:Qty: 1 on 04/30/2018 by Alix Mckenna MD at [facility] Right: Knee [employer] 04/04/2023 [id number] / / [id number] Cmpnt Fem Kn Rt Cr Cmnt Prm Vngrd Intlk 62.5mm Implanted:Qty: 1 on 04/30/2018 by Alix Mckenna MD at [facility] Right: Knee [employer] 02/05/2028 [id number] / / [id number] Tray Tib 71mm Kn Cocr I Beam Implanted:Qty: 1 on 04/30/2018 by Alix Mckenna MD at [facility] Right: Knee [employer] 02/10/2028 [id number] / / [id number] [id number] Vngrd Arcm Kn Ant Stab Implanted:Qty: 1 on 04/30/2018 by Alix Mckenna MD at [facility] Right: Knee [employer] 01/18/2023 [id number] / / [id number] Lens Iol 0 D +20 Marlo Mod L Bcnvx Acrsf - [id number] Implanted:Qty: 1 on 11/15/2021 by Liam Brito MD at [facility] Left: Eye [employer] 09/19/2026 SN60WF.200 / [id number] / Lens Iol 0 D +21.5 Marol Mod L Bcnvx - [id number] Implanted:Qty: 1 on 11/29/2021 by Liam Brito MD at [facility] Right: Eye [employer] 09/25/2026 SN60WF.215 / [id number] / Procedures Procedure Name Priority Date/Time Associated Diagnosis Comments COMPREHENSIVE METABOLIC PANEL Routine 04/12/2018 2:15 PM AVIATION OPERATIONS SPECIALIST Preop examination from Last 3 Months or Most Recently Relevant to Health Maintenance Results * (ABNORMAL) COMPREHENSIVE METABOLIC PANEL (04/12/2018 2:15 PM AVIATION OPERATIONS SPECIALIST) Glucose 98 74 - 106 mg/dL 04/12/2018 3:03 PM AVIATION OPERATIONS SPECIALIST [facility] Sodium 137 136 - 145 mmol/L 04/12/2018 3:03 PM AVIATION OPERATIONS SPECIALIST [facility] Potassium 4.2 3.5 - 5.1 mmol/L 04/12/2018 3:03 PM AVIATION OPERATIONS SPECIALIST [facility] Chloride 104 98 - 107 mmol/L 04/12/2018 3:03 PM AVIATION OPERATIONS SPECIALIST [facility] CO2 30 22 - 31 mmol/L 04/12/2018 3:03 PM AVIATION OPERATIONS SPECIALIST [facility] Calcium 8.4(L) 8.5 - 10.1 mg/dL 04/12/2018 3:03 PM AVIATION OPERATIONS SPECIALIST [facility] Anion Gap 3(L) 8 - 16 mmol/L 04/12/2018 3:03 PM AVIATION OPERATIONS SPECIALIST [facility] BUN 20 7 - 21 mg/dL 04/12/2018 3:03 PM AVIATION OPERATIONS SPECIALIST [facility] Creatinine 0.88 0.50 - 1.30 mg/dL 04/12/2018 3:03 PM AVIATION OPERATIONS SPECIALIST [facility] Alkaline Phosphatase 75 38 - 126 U/L 04/12/2018 3:03 PM AVIATION OPERATIONS SPECIALIST [facility] ALT 23 13 - 61 U/L 04/12/2018 3:03 PM AVIATION OPERATIONS SPECIALIST [facility] AST 12 5 - 40 U/L 04/12/2018 3:03 PM AVIATION OPERATIONS SPECIALIST [facility] Protein Total 6.9 6.4 - 8.2 gm/dL 04/12/2018 3:03 PM AVIATION OPERATIONS SPECIALIST [facility] Albumin 3.5 3.4 - 5.0 gm/dL 04/12/2018 3:03 PM AVIATION OPERATIONS SPECIALIST [facility] Bilirubin Total 0.2 0.2 - 1.0 mg/dL 04/12/2018 3:03 PM AVIATION OPERATIONS SPECIALIST [facility] eGFR by MDRD >60 >60 mL/min/1.7 3m2 04/12/2018 3:03 PM AVIATION OPERATIONS SPECIALIST [facility] eGFR by MDRD >60 >60 mL/min/1.7 3m2 04/12/2018 3:03 PM [facility] Blood BLOOD SPECIMEN / Unknown Venipuncture / Unknown 04/12/2018 2:15 PM AVIATION OPERATIONS SPECIALIST 04/12/2018 2:41 PM AVIATION OPERATIONS SPECIALIST Alix Mckenna MD LAB - CHEMISTRY ORDERABLES Fi nal Result [facility] [address] [place] [address] from Last 3 Months or Most Recently Relevant to Health Maintenance Insurance [facility] [place] [address] [facility] [place] [id number] [place] [address] * Guarantor: AJ LOCK Account Type Relation to Patient Date of Phone Billing Address Personal/Family 1950 Advance Directives * Full Code (Latest Code Status on File) Date Activated Date Inactivated Comments 04/30/2018 1:54 PM 05/02/2018 2:43 PM Care Teams Business Law Professor Relationship Specialty Start Date End Date Ryan Minor DO [address] [place] [address] PCP - General 07/02/19
--- OUTSIDE RECORDS SUMMARY | 2024-12-08 12:47 | XMS_ITS | Encounter Summary ---
Author Organization [facility] Address [address] [facility] [place] [address] Care Team Providers Care Rotary Veneer Machine Operator Name Role Phone Ryan Minor Primary Care Provider [phone] Encounter Details Date Type Department Care Team (Late st Contact Info) Description 09/15/2021 Telephone [facility] Pulmonary, Critical Care and Sleep Medicine [address] [place] [phone] Robbin Yun MD [address] [address] Social History Tobacco Use Types Packs/Day Years Used Date Smoking Tobacco: Former Smokeless Tobacco: Never Comments:quit 40 years ago Alcohol Use Standard Drinks/Week Comments No 0 (1 standard drink = 0.6 oz pur e alcohol) Comments No Sex and Gender Information Value Date Recorded Sex Assigned at Not on file Legal Sex Female 6:09 PM UTILIZATION REVIEW RN Gender Identity Not on file Sexual Orientation [...] will have to have a date to supervisor drying and softening after 09/28/2021. Please call patient. Patient Call Back number: [phone] documented in this encounter Plan of Treatment Not on file documented as of this encounter Visit Diagnoses Not on filedocumented in this encounter Care Teams Rotary Veneer Machine Operator Relationship Specialty Start Date End Date Ryan Minor DO [address] [place] [address] PCP - General 07/02/19 documented as of this encounter
--- OUTSIDE RECORDS SUMMARY | 2024-12-08 12:47 | XMS_ITS | Clinical Summary ---
Author Organization [facility] Address [address] [place] [address] Care Team Providers Care Side Sawyer Name Role Phone Maria Isabel Smith Cassy SHEEP SORTER Unavailable [phone] Cory Porter MD Primary Care Provider [phone] Allergies No known active allergies Medications venlafaxine XR (EFFEXOR-XR) 150 mg 24 hr capsule 10/02/2017 Active losartan (COZAAR) 50 mg tablet TK 1 T PO QD 1 08/07/2017 Active levothyroxine (SYNTHROID, LEVOTHROID) 88 mcg tablet TK 1 T PO QD 1 09/08/2017 Activ e LINZESS 290 mcg capsule 11/12/2017 Active traZODone (DESYREL) 150 mg tablet TK 1 T PO QHS 1 10/01/2017 Activ e busPIRone (BUSPAR) 15 mg tabletIndicatio ns:Generalized Anxiety Disorder TK 1 T PO QD 1 11/07/2017 Active rOPINIRole (REQUIP) 0.5 mg tablet TK 1 T PO QD 0 09/06/2017 Active clonazePAM (KlonoPIN) 1 mg tablet 0 11/08/2017 Active melatonin tablet Take 20 mg by mouth. Active rOPINIRole (REQUIP) 1 mg tablet TK 1 T PO QHS 3 02/06/2018 Activ e methylPREDNISol one (Medrol, Rufino,) 4 mg Dosepack Take as directed on package 1 packet 12/04/2024 Active gabapentin (NEURONTIN) 100 mg capsuleIndicati ons:Neuropathic Pain Take 1 capsule (100 mg total) by mouth 3 (three) times a day 90 capsule 12/04/2024 01/04/20 25 Active Active Problems Problem Noted Date Diagnosed Date Primary osteoarthritis of left knee 08/23/2022 Lumbar radiculopathy 08/23/2022 Bilateral primary osteoarthritis of hip 08/24/19 23 Trochanteric bursitis of both hips 08/23/2022 Other constipation 06/18/2014 Overview (03/23/2018): Overview: 05/2008 - Normal colonoscopy 11/25/11 - Flex Sig - Sm internal hemorrhoids. ARM recommended. 12/25/13 - Trial of linzess, continued to have sxs 06/2014-Trial of Amitiza Acquired cyst of kidney 07/15/2013 Other microscopic hematuria 07/15/2013 Essential (primary) hypertension 11/18/2011 Obstructive sleep apnea 08/19/2010 Overview (03/23/2018): Overview: AHI 63 in July 2009. CPAP = 8 cm June 2010 DME is IV Respiratory Care Anxiety disorder 08/05/2010 Hypersomnia 08/05/2010 Hypothyroidism 08/05/2010 Major depressive disorder, single episode 2010 Osteoarthritis 08/05/2010 Other fatigue 08/05/2010 Encounters Date Type Department Care Team Description 12/04/2024 11:20 AM CDT Ancillary Procedure [facility] Imaging at [address] [phone] Left hip pain 12/04/2024 11:15 AM CDT Office Visit [facility] Orthopedic and Sports Medicine [address] [place] [phone] Ronnie Lindo PA Left hip pain (Primary Dx); Lumbosacral radiculopathy; SI joint arthritis 12/04/2024 Telephone [facility] Orthopedic and Sports Medicine [address] [place] [phone] Ronnie Lindo PA 12/04/2024 Orders Only [facility] Orthopedic and Sports Medicine [address] [place] [phone] Ronnie Lindo PA Left hip pain (Primary Dx); Lumbosacral radiculopathy; SI joint arthritis 12/04/2024 Orders Only [facility] Orthopedic and Sports Medicine [address] [place] [phone] Ronnie Lindo PA Left hip pain (Primary Dx); Lumbosacral radiculopathy; SI joint arthritis from Last 3 Months Surgical History Surgery Date Site/Laterality Comments NM TONSILLECTOMY PRIMARY/SEC ONDARY <AGE 14 Tonsillectomy - (Added by TW Conv) NM APPENDECTOMY Appendectomy - (Added by TW Conv) BLADDER SURGERY Bladder Surgery - (Added by TW Conv) BACK SURGERY HYSTERECTOMY KNEE SURGERY TONSILLECTOMY Medical History Medical History Date Comments Addiction to drug (HCC) Anxiety Arthritis Depression Gastric reflux Chronic kidney disease Kidney stone Pneumonia Sleep apnea Urinary tract infection Family History Medical History Relation Name Comments Alcohol abuse Father COPD Father Cancer Father Depression Father Mental illness Father Heart disease Mother Hypertension Mother Hypertension Other 1 Hypertension - (Added by TW Conv) Heart disease Other 2 Heart Disease - (Added by TW Conv) Migraines Other 3 Migraine Headac he - (Added by TW Conv) Relation Name Status Comments Father Mother Other 1 Other 2 Other 3 Social History Tobacco Use Types Packs/Day Years Used Date Smoking Tobacco: Former Cigarettes 1978 Smokeless Tobacco: Never Tobacco Cessation:Counseling Given: Not Answered Alcohol Use Standard Drinks/Week Comments Yes 0 (1 standard drink = 0.6 oz pur e alcohol) social Comments Unknown Sex and Gender Information Value Date Recorded Sex Assigned at Not on file Legal Sex Female 1:15 PM BLACKSMITH APPRENTICE Gender Identity Female 10/26/2017 11:06 AM CDT Sexual Orientation Not on file Obstetrics History Last Filed Vital Signs Vital Sign Reading Time Taken Comments Blood Pressure 137/90 12/04/2024 11:26 AM CDT Pulse 92 12/04/2024 11:26 AM CDT Temperature - - Respiratory Rate - - Oxygen Saturation 96% 03/14/2018 2:56 PM BLACKSMITH APPRENTICE Inhaled Oxygen Concentration - - Weight 64.9 kg (143 lb) 12/04/2024 11:26 AM CDT Height 152.4 cm (5') 12/04/2024 11:26 AM CDT Body Mass Index 27.93 12/04/2024 11:26 AM CDT Plan of Treatment Health Maintenance Due Date Last Done Comments Breast Cancer Screening-Mammogram 1950 Colon Cancer Screening-Colonoscopy 1950 Depression Screening 1950 Fall Risk Assessment 1950 Hepatitis C Screening 1950 Osteoporosis Screening-Bone Density Scan 1950 DTaP/Tdap/Td Vaccine (1 - Tdap) 02/28/1963 Hepatitis B Screening 02/28/1970 Pneumococcal vaccine 65+ (1 of 1 - PCV) 02/28/2002 Zoster Vaccine (1 of 2) 02/28/2002 Well Visit 65+ 02/28/2017 Covid-19 Vaccine ( season) 2023 02/05/2021, 06/22/2020, 05/28/2020 Influenza Vaccine (#1) 2024 05/01/2018, [address] [place] [address] [employer] CHOICE MEDICARE PPO Member Subscriber Plan / Payer (Ef fective 2020-Present) Name:Katherine Pelaez Relation to Subscriber:Self Name:Katherine Pelaez Payer ID:[id number] (NAIC) Type:MEDICARE RISK OTHER Address: [place] [id number] MCR SUPPLEMENT [place] [id number] [facility] SUPPLEMENT [place] [id number] [employer] MEDICARE PPO CLAIMS OFFICE [employer] MEDICARE PPO [facility] Member Subscriber Plan / Payer (Ef fective 2024-Present) Name:Katherine Pelaez Ann Relation to Subscriber:Spouse Name:AZ PELAEZ Date of :1950 Address: [address] [place] [address] [place] [address] Payer ID:[id number] (NAIC) Group ID:[id number] Type:[facility] Address: [address] [place] [id number] Care Teams Side Sawyer Relationship Specialty Start Date End Date Cory Porter MD PCP - General Family Practice 10/24/22 Maria Isabel Smith NP Nurse Practitioner Nurse Practitioner 09/18/20
[2024-12-08 12:48] VITALS: PULSE 93; RESP 18; TEMP 36.7; O2SAT 99
[2024-12-08 12:52] VITALS: PULSE 90
[2024-12-08 12:57] VITALS: BP 136/77; PULSE 88; RESP 16; O2SAT 95
[2024-12-08 13:05] LABS: Hematocrit 44.0 % (37.0-47.0); Hemoglobin 14.1 g/dL (12.0-15.0); Immature Granulocyte Percent A 0.5 % (0-0.5); Lymphocytes Absolute Auto 1.07 K/mm3 (0.9-3.2); Mean Corpuscular HGB Conc 32.0 g/dl (32-36); Mean Corpuscular Hemoglobin 26.2 pg (26-34); Mean Corpuscular Volume 81.6 fl (80-100); Nucleated Red Blood Cells Absolute Auto 0.000 K/mm3 (0.0-0.012); Nucleated Red Blood Cells Perc 0.0 % (0.0-0.2); Platelet Count Result 227 k/mm3 (150-375); Red Blood Count 5.39 M/mm3 (4.2-5.4); White Blood Count 9.7 K/mm3 (4.5-10.0)
[2024-12-08 13:18] LABS: Alanine Aminotransferase 17 U/L (6-35); Albumin Level 4.3 g/dL (3.5-5.1); Alkaline Phosphatase 64 U/L (38-126); Anion Gap 8 mmol/L (4-12); Aspartate Amino Transferase 21 U/L (14-36); Bilirubin,Total 0.4 mg/dL (0.2-1.3); Blood Urea Nitrogen 26 mg/dL (7-17); Calcium 8.9 mg/dL (8.4-10.2); Carbon Dioxide 26 mmol/L (22-30); Chloride 104 mmol/L (98-107); Estimated CRCL calculation 46 ml/min; Estimated Glomerular Filt Rate > 60; Glucose 151 mg/dL (65-110); Lipase 93 U/L (23-300); Potassium 4.0 mmol/L (3.4-5.0); Sodium 138 mmol/L (137-145); Total Protein 7.4 g/dL (6.3-8.2)
[2024-12-08 13:26] LABS: INR 0.9; Prothrombin Time 12.8 Seconds (11.1-14.7)
[2024-12-08 13:27] LABS: Partial Thromboplastin Time 23.4 Seconds (22.3-36.8)
[2024-12-08 13:27] LABS: Troponin I < 0.012 ng/mL (0.000-0.034)
[2024-12-08] MEDS: ASPIRIN 81 MG CHEWABLE TABLET 324 MG PO (13:37)
[2024-12-08 13:47] VITALS: BP 116/69; PULSE 85; RESP 11; O2SAT 94
--- OUTSIDE RECORDS SUMMARY | 2024-12-08 13:58 | XMS_ITS | Clinical Summary ---
Author Organization [facility] [employer] Address [address] [facility] [place] [address] Care Team Providers Care Senior Application Software Engineer Name Role Phone Ryan Minor Primary Care Provider [phone] Source Comments [facility],non-owned Affiliates and Associated Physician Practices is amultiple site organization consisting of ambulatory clinics and hospital sitesin [place], [place], [place] and [place]. This disclosure is being madepursuant to the Care Everywhere program and may not contain all information available regarding this patient. Last updated 17.[facility] [employer] Allergies Active Allergy Reactions Criticality Noted [...] sprayIndications :Allergic rhinitis, unspecified seasonality, unspecified trigger Pepin 2 (two) sprays into each nostril once [...] on file Legal Sex Female 6:09 PM CAPACITOR INSPECTOR Gender Identity Not on file Sexual Orientation [...] this topic Medical Devices Implanted Type Area Jewelry Drill Operator Device Identifier Shelf Expiration Date Model / Serial / Lot Cmnt Bone Cblt 40gm Hvisc Strl Implanted:Qty: 1 on 04/30/2018 by Alix Mckenna MD at [facility] Right: Knee [employer] 08/24/2019 600-15-000 / / [id number] Cmpnt Ptlr 28mm 1 Pg Wire Ascnt [employer] Kn Implanted:Qty: 1 on 04/30/2018 by Alix Mckenna MD at [facility] Right: Knee [employer] 04/04/2023 [id number] / / [id number] Cmpnt Fem Kn Rt Cr Cmnt Prm Vngrd Intlk 62.5mm Implanted:Qty: 1 on 04/30/2018 by Alix Mckenna MD at [facility] Right: Knee [employer] 02/05/2028 [id number] / / [id number] Tray Tib 71mm Kn Cocr I Beam Implanted:Qty: 1 on 04/30/2018 by Alix Mckenna MD at [facility] Right: Knee [employer] 02/10/2028 [id number] / / [id number] Brng [id number] Vngrd Arcm Kn Ant Stab Implanted:Qty: 1 on 04/30/2018 by Alix Mckenna MD at [facility] Right: Knee [employer] 01/18/2023 [id number] / / [id number] Lens Iol 0 D +20 Marlo Mod L Bcnvx Acrsf - [id number] Implanted:Qty: 1 on 11/15/2021 by Liam Brito MD at [facility] Left: Eye [employer] 09/19/2026 SN60WF.200 / [id number] / Lens Iol 0 D +21.5 Marlo Mod L Bcnvx - [id number] Implanted:Qty: 1 on 11/29/2021 by Liam Brito MD at [facility] Right: Eye [employer] 09/25/2026 SN60WF.215 / [id number] / Procedures Procedure Name Priority Date/Time Associated Diagnosis Comments COMPREHENSIVE METABOLIC PANEL Routine 04/12/2018 2:15 PM CAPACITOR INSPECTOR Preop examination from Last 3 Months or Most Recently Relevant to Health Maintenance Results * (ABNORMAL) COMPREHENSIVE METABOLIC PANEL (04/12/2018 2:15 PM CAPACITOR INSPECTOR) Glucose 98 74 - 106 mg/dL 04/12/2018 3:03 PM CAPACITOR INSPECTOR [facility] Sodium 137 136 - 145 mmol/L 04/12/2018 3:03 PM CAPACITOR INSPECTOR [facility] Potassium 4.2 3.5 - 5.1 mmol/L 04/12/2018 3:03 PM CAPACITOR INSPECTOR [facility] Chloride 104 98 - 107 mmol/L 04/12/2018 3:03 PM CAPACITOR INSPECTOR [facility] CO2 30 22 - 31 mmol/L 04/12/2018 3:03 PM CAPACITOR INSPECTOR [facility] Calcium 8.4(L) 8.5 - 10.1 mg/dL 04/12/2018 3:03 PM CAPACITOR INSPECTOR [facility] Anion Gap 3(L) 8 - 16 mmol/L 04/12/2018 3:03 PM CAPACITOR INSPECTOR [facility] BUN 20 7 - 21 mg/dL 04/12/2018 3:03 PM CAPACITOR INSPECTOR [facility] Creatinine 0.88 0.50 - 1.30 mg/dL 04/12/2018 3:03 PM CAPACITOR INSPECTOR [facility] Alkaline Phosphatase 75 38 - 126 U/L 04/12/2018 3:03 PM CAPACITOR INSPECTOR [facility] ALT 23 13 - 61 U/L 04/12/2018 3:03 PM CAPACITOR INSPECTOR [facility] AST 12 5 - 40 U/L 04/12/2018 3:03 PM CAPACITOR INSPECTOR [facility] Protein Total 6.9 6.4 - 8.2 gm/dL 04/12/2018 3:03 PM CAPACITOR INSPECTOR [facility] Albumin 3.5 3.4 - 5.0 gm/dL 04/12/2018 3:03 PM CAPACITOR INSPECTOR [facility] Bilirubin Total 0.2 0.2 - 1.0 mg/dL 04/12/2018 3:03 PM CAPACITOR INSPECTOR [facility] eGFR by MDRD >60 >60 mL/min/1.7 3m2 04/12/2018 3:03 PM CAPACITOR INSPECTOR [facility] eGFR by MDRD >60 >60 mL/min/1.7 3m2 04/12/2018 3:03 PM [facility] Blood BLOOD SPECIMEN / Unknown Venipuncture / Unknown 04/12/2018 2:15 PM CAPACITOR INSPECTOR 04/12/2018 2:41 PM CAPACITOR INSPECTOR Alix Mckenna MD LAB - CHEMISTRY ORDERABLES Fi nal Result [facility] [address] [place] [address] from Last 3 Months or Most Recently Relevant to Health Maintenance Insurance [facility] [place] [id number] [facility] [place] [id number] [place] [address] * Guarantor: AJ LOCK Account Type Relation to Patient Date of Phone Billing Address Personal/Family 1950 Advance Directives * Full Code (Latest Code Status on File) Date Activated Date Inactivated Comments 04/30/2018 1:54 PM 05/02/2018 2:43 PM Care Teams Senior Application Software Engineer Relationship Specialty Start Date End Date Ryan Minor DO [address] [place] [address] PCP - General 07/02/19
--- OUTSIDE RECORDS SUMMARY | 2024-12-08 13:58 | XMS_ITS | Encounter Summary ---
Author Organization [facility] Health Address [address] [place] [address] Care Team Providers Care Parts Department Supervisor Name Role Phone Ryan Minor DO Primary Care Provider Encounter Details Date Type Department Care Team (Late st Contact Info) Description 08/30/2021 Telephone [facility] [address] [place] [address] Ryan Minor DO [address] [place] [address] Social History Tobacco Use Types Packs/Day Years Used Date Smoking Tobacco: Former Smokeless Tobacco: Never Comments:quit 40 years ago Alcohol Use Standard Drinks/Week Comments No 0 (1 standard drink = 0.6 oz pur e alcohol) Comments No Sex and Gender Information Value Date Recorded Sex Assigned at Not on file Legal Sex Female 6:09 PM OIL AND GAS WELL TREATMENT OPERATOR Gender Identity Not on file Sexual Orientation [...] on filedocumented in this encounter Care Teams Parts Department Supervisor Relationship Specialty Start Date End Date Ryan Minor DO [address] [place] [address] PCP - General 07/02/19 documented as of this encounter
--- OUTSIDE RECORDS SUMMARY | 2024-12-08 13:58 | XMS_ITS | Clinical Summary ---
Author Organization [facility] Address [address] [place] [address] Care Team Providers Care Card Services Specialist Name Role Phone Ryan Minor DO Primary Care Provider [phone] Social History Tobacco Use Types Packs/Day Years [...] age to complete this topic Insurance [employer] [facility] [place] [id number] Care Teams Card Services Specialist Relationship Specialty Start Date End Date Ryan Minor DO [address] [address] PCP - General INTERNAL MEDICINE 07/30/19
--- OUTSIDE RECORDS SUMMARY | 2024-12-08 13:58 | XMS_ITS | Encounter Summary ---
Author Organization [facility] Health Address [address] [facility] [place] [address] Care Team Providers Care Recreation Professor Name Role Phone Ryan Minor Primary Care Provider [phone] Encounter Details Date Type Department Care Team (Late st Contact Info) Description 09/15/2021 Telephone [facility] Pulmonary, Critical Care and Sleep Medicine [address] [facility] [place] [phone] Robbin Yun MD [address] [address] Social History Tobacco Use Types Packs/Day Years Used Date Smoking Tobacco: Former Smokeless Tobacco: Never Comments:quit 40 years ago Alcohol Use Standard Drinks/Week Comments No 0 (1 standard drink = 0.6 oz pur e alcohol) Comments No Sex and Gender Information Value Date Recorded Sex Assigned at Not on file Legal Sex Female 6:09 PM INTERLOCKING AND SIGNAL MECHANIC Gender Identity Not on file Sexual Orientation [...] will have to have a date to peer support specialist after 09/28/2021. Please call patient. Patient Call Back number: [phone] documented in this encounter Plan of Treatment Not on file documented as of this encounter Visit Diagnoses Not on filedocumented in this encounter Care Teams Recreation Professor Relationship Specialty Start Date End Date Ryan Minor DO [address] [place] [address] PCP - General 07/02/19 documented as of this encounter
--- OUTSIDE RECORDS SUMMARY | 2024-12-08 13:58 | XMS_ITS | Encounter Summary ---
Author Organization [facility] Health Address [address] [facility] [place] [address] Care Team Providers Care Rotary Furnace Operator Name Role Phone Ryan Minor Primary Care Provider [phone] Encounter Details Date Type Department Care Team (Late st Contact Info) Description 08/12/2021 Telephone [facility] Ophthalmology [address] [place] [address] Pi, [place] [address] [facility] [address] [place] [address] Social History Tobacco Use Types Packs/Day Years Used Date Smoking Tobacco: Former Smokeless Tobacco: Never Comments:quit 40 years ago Alcohol Use Standard Drinks/Week Comments No 0 (1 standard drink = 0.6 oz pur e alcohol) Comments No Sex and Gender Information Value Date Recorded Sex Assigned at Not on file Legal Sex Female 6:09 PM SHUTDOWN PLANNER Gender Identity Not on file Sexual Orientation Not on file documented as of this encounter Functional Status * Is person deaf or have serious hearing difficulty? Answer Date of Assessment Author No 04/30/2018 2:06 PM SHUTDOWN PLANNER Robbie Lanza RN * Is person blind [...] apointment teressa for cataracts. Her MRN is [id number]. Her appointment with shila was bumped her phone number is [phone] documented in this encounter Plan of Treatment Not on file documented as of this encounter Visit Diagnoses Not on filedocumented in this encounter Care Teams Rotary Furnace Operator Relationship Specialty Start Date End Date Ryan Minor DO [address] [place] [address] PCP - General 07/02/19 documented as of this encounter
--- OUTSIDE RECORDS SUMMARY | 2024-12-08 13:58 | XMS_ITS | Clinical Summary ---
Author Organization [facility] Address [address] [place] [address] Care Team Providers Care Roll Clamp Operator Name Role Phone Maria Isabel Smith Cassy VP SALES Unavailable [phone] Cory Porter MD Primary Care Provider [phone] Allergies No known active allergies Medications venlafaxine [...] Description 12/04/2024 11:20 AM CDT Ancillary Procedure [facility] Imaging at [address] [phone] Left hip pain 12/04/2024 11:15 AM CDT Office Visit [facility] Orthopedic and Sports Medicine [address] [place] [phone] Ronnie Lindo PA Left hip pain (Primary Dx); Lumbosacral radiculopathy; SI joint arthritis 12/04/2024 Telephone [facility] Orthopedic [facility] Sports Medicine [address] [place] [phone] Ronnie Lindo PA 12/04/2024 Orders Only [facility] Orthopedic [facility] Medicine [address] [place] [phone] Ronnie Lindo PA Left hip pain (Primary Dx); Lumbosacral radiculopathy; SI joint arthritis 12/04/2024 Orders Only [facility] Orthopedic [facility] [address] [place] [phone] Ronnie Lindo PA Left hip pain [...] on file Legal Sex Female 1:15 PM RANCH HAND LIVESTOCK Gender Identity Female 10/26/2017 11:06 AM CDT Sexual Orientation Not on file Obstetrics History Last Filed Vital Signs Vital Sign Reading Time Taken Comments Blood Pressure 137/90 12/04/2024 11:26 AM CDT Pulse 92 12/04/2024 11:26 AM CDT Temperature - - Respiratory Rate - - Oxygen Saturation 96% 03/14/2018 2:56 PM RANCH HAND LIVESTOCK Inhaled Oxygen Concentration - - Weight 64.9 [...] 2024 05/01/2018, [address] [place] [address] [employer] CHOICE MEDICARE PPO Member Subscriber Plan / Payer (Ef fective 2020-Present) Name:Katherine Pelaez Relation to Subscriber:Self Name:Katherine Pelaez Payer ID:[id number] (NAIC) Type:MEDICARE RISK OTHER Address: [place] [id number] [employer]CR SUPPLEMENT [place] [address] [facility] SUPPLEMENT [place] [address] [employer] MEDICARE PPO CLAIMS OFFICE [employer] MEDICARE PPO [facility] Address: [address] [place] [id number] Care Teams Roll Clamp Operator Relationship Specialty Start Date End Date Cory Porter MD PCP - General Family Practice 10/24/22 Maria Isabel Smith NP Nurse Practitioner Nurse Practitioner 09/18/20
--- OUTSIDE RECORDS SUMMARY | 2024-12-08 13:58 | XMS_ITS | Encounter Summary ---
Author Organization [facility] Health Address [address] [facility] [place] [address] Care Team Providers Care Special Library Librarian Name Role Phone Ryan Minor Primary Care Provider [phone] Encounter Details Date Type Department Care Team (Late st Contact Info) Description 08/30/2021 Telephone [facility] [address] [place] [address] Robbin Yun MD [address] [address] Social History Tobacco Use Types Packs/Day Years Used Date Smoking Tobacco: Former Smokeless Tobacco: Never Comments:quit 40 years ago Alcohol Use Standard Drinks/Week Comments No 0 (1 standard drink = 0.6 oz pur e alcohol) Comments No Sex and Gender Information Value Date Recorded Sex Assigned at Not on file Legal Sex Female 6:09 PM SUPERVISOR WATERWORKS Gender Identity Not on file Sexual Orientation Not on file documented as of this encounter Functional Status * Is person deaf or have serious hearing difficulty? Answer Date of Assessment Author No 04/30/2018 2:06 PM SUPERVISOR WATERWORKS Robbie Lanaz RN * Is person blind or have [...] a sleep study. Patient Call Back number: [phone] documented in this encounter Plan of Treatment Not on file documented as of this encounter Visit Diagnoses Not on filedocumented in this encounter Care Teams Special Library Librarian Relationship Specialty Start Date End Date Ryan Minor DO [address] [place] [address] PCP - General 07/02/19 documented as of this encounter
--- NOTE | 2024-12-08 14:45 | ED_ITS ---
HPI - Arrhythmia/Palpitations General Chief Complaint: Arrhythmia/Palpitations Stated Complaint: heart is fluttering, high bp, sweating Time Seen by Provider: 12/08/24 13:01 History of Present Illness HPI narrative: Patient is a 74-year-old female who presents ER with palpitations. She has been experiencing this intermittently for a few days. She will occasionally get some lightheadedness with nausea and then will feel palpitations. No chest pain. No difficulty breathing. Had an outpatient EKG that showed a PVC. She does not think it is vertigo. She cannot describe any aggravating or alleviating factors. Will only last a few seconds. She feels warm and flushed when this occurs as well and feels like she is anxious. Related Data Home Medications ?Medication ?Instructions ?Recorded ?Confirmed ?Last Taken ?Type albuterol sulfate 90 mcg/actuation 2 puff inhalation Q 4-6H PRN 06/21/22 11/15/24 Unknown History aerosol inhaler Shortness Of Breath acetaminophen-calcium carbonat 500 2 tablet PO PRN PRN Pain 06/04/24 11/15/24 Unknown History mg-250 mg tablet Allergies Allergy/AdvReac Type Severity Reaction Status Date / Time No Known Allergies Allergy Verified 12/08/24 12:57 Review of Systems 2 Review of Systems: All systems reviewed & are unremarkable except as noted in HPI and below Constitutional: Constitutional: Reports no additional constitutional complaints ENT: Reports system reviewed and no additional complaints, except as documented Cardiovascular: Cardiovascular: Reports no additional cardiovascular complaints Respiratory: Respiratory: Reports no additional respiratory complaints Neurologic: Reports system reviewed and no additional complaints, except as documented PMFSH Past Medical History Medical History BMI 30.0-30.9,adult Abnormal lung scan Cataract (lens) fragments in eye following cataract surgery, bilateral COVID-19 Screening for lipid disorders Renal cyst 6, not currently Allergic rhinitis, seasonal Anxiety Arthritis Bacterial vaginosis Blood clotting disorder Bowel trouble Broken wrist Normal colonoscopy Dementia Depression Diverticulitis GERD (gastroesophageal reflux disease) History of migraine headaches Hematuria Hemorrhoids Herniated disc High cholesterol History of anemia Acute insomnia Kidney disease Mammogram abnormal Meniscus degeneration RLS (restless legs syndrome) Stroke Suicide attempt Surgical History Surgical History H/O radiofrequency ablation (RFA) of nerve of lumbar spine History of appendectomy Previous back surgery Knee joint replacement status Family History Family History Father Family history of lung disease Depression Family history of malignant neoplasm of gastrointestinal tract Family history of migraine headaches Family history of alcoholism Cancer Mother Family history of heart disease in male family member before age 55 Hypertension Sibling Depression Family history of migraine headaches Cancer Other Family history of mental disorder Social History Social History Smoking packs per day: 1 Smoking cigarettes per day: 20.0 Years smoked: 6 Smoking pack-years: 6.00 Smoking status: Former smoker Tobacco type: cigarettes Second hand tobacco smoke exposure: No Smoking end date: 04/10/75 Alcohol intake: never Substance use: current Substance use type: marijuana Other substance usage details: 1/2 edible gummy for back pain a few times weekly Do You Feel Safe in your Home?: Yes Lack of Transportation: No Current Housing: I Have Housing Concerned About Future Housing: No Difficulty Paying Gas/Electric Bills: No Difficulty Paying for Meds: No Currently Unemployed: No Education: Trade/Vocational Certificate Difficulty w/ Childcare or Family Care: No Living arrangements: with family Occupation/Education: retired 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 Gender identity (if verbalized by the patient): Female Spiritual care concerns: No Exam 2 Narrative: GENERAL: Well-appearing, well-nourished, and in no acute distress. HEAD: Normocephalic, atraumatic. ENT: Mucous membranes moist. CHEST: Clear to auscultation. No respiratory distress. HEART: Regular rate and rhythm. Normal peripheral pulses. ABDOMEN: Soft, nontender, nondistended. EXTREMITIES: Normal range of motion. No edema. SKIN: Warm, dry, no rash. NEURO: Alert and oriented x3. PSYCH: Normal mood and affect. Course Vital Signs Vital signs: Vital Signs Temperature 98.1 F 12/08/24 12:48 Pulse Rate 93 12/08/24 12:48 Respiratory Rate 18 12/08/24 12:48 Pulse Oximetry 99 12/08/24 12:48 Oxygen Delivery Room Air 12/08/24 12:48 Temperature 98.1 F 12/08/24 12:48 Pulse Rate 85 12/08/24 13:47 Respiratory Rate 11 L 12/08/24 13:47 Blood Pressure 116/69 12/08/24 13:47 Pulse Oximetry 94 12/08/24 13:47 Oxygen Delivery Room Air 12/08/24 12:48 MDM - Arrhythmia/Palpitations Lab Data 12/08/24 12:59 12/08/24 13:00 Labs: Lab Results 12/08/24 12/08/24 Range/Units 12:59 13:00 WBC 9.7 (4.5-10.0) K/mm3 RBC 5.39 (4.2-5.4) M/mm3 Hgb 14.1 (12.0-15.0) g/dL Hct 44.0 (37.0-47.0) % MCV 81.6 (80-100) fl MCH 26.2 (26-34) pg MCHC 32.0 (32-36) g/dl RDW 14.4 (11.5-14.5) % Plt Count 227 (150-375) k/mm3 MPV 10.1 (7.4-10.4) fl Immature Gran % (Auto) 0.5 (0-0.5) % Neut % (Auto) 83.6 H (45.5-73.1) % Lymph % (Auto) 11.0 L (18.3-44.2) % [place] % (Auto) 3.8 (2.6-8.5) % Eos % (Auto) 0.1 (0-4.4) % Baso % (Auto) 1.0 (0.2-1.2) % Lymph # (Auto) 1.07 (0.9-3.2) K/mm3 [place] # (Auto) 0.4 (0.1-0.6) K/mm3 Eos # (Auto) 0.0 (0-0.3) K/mm3 Baso # (Auto) 0.1 (0.0-0.1) K/mm3 Abs Immat Gran (auto) 0.05 H (0.00-0.031) K/mm3 Absolute Neuts (auto) 8.1 H (1.3-6.7) K/mm3 Absolute Nucleated RBC 0.000 (0.0-0.012) K/mm3 Nucleated RBC % 0.0 (0.0-0.2) % PT 12.8 (11.1-14.7) Seconds INR 0.9 APTT 23.4 (22.3-36.8) Seconds Sodium 138 (137-145) mmol/L Potassium 4.0 (3.4-5.0) mmol/L Chloride 104 (98-107) mmol/L Carbon Dioxide 26 (22-30) mmol/L Anion Gap 8 (4-12) mmol/L BUN 26 H D (7-17) mg/dL Creatinine 0.82 (0.7-1.0) mg/dL Estim Creat Clear Calc 46 ml/min Estimated GFR > 60 (59 - ) Glucose 151 H (65-110) mg/dL Calcium 8.9 (8.4-10.2) mg/dL Total Bilirubin 0.4 (0.2-1.3) mg/dL AST 21 (14-36) U/L ALT 17 (6-35) U/L Alkaline Phosphatase 64 (38-126) U/L Troponin I < 0.012 (0.000-0.034) ng/mL Total Protein 7.4 (6.3-8.2) g/dL Albumin 4.3 (3.5-5.1) g/dL Lipase 93 (23-300) U/L Imaging Data Radiologist's impression: ITS Impressions Chest X-Ray 12/08/24 13:17 IMPRESSION: 1. No acute cardiopulmonary disease. ECG Data EKG #1: ECG completion date: 12/08/24 ECG completion time: 12:56 EKG Interpretation: normal rate (91), sinus rhythm, no ectopy, normal QRS and normal QT Discharge Plan Discharge Clinical Impression: Heart palpitations Patient Disposition: Home Condition: Stable Instructions: Heart Palpitations (ED) Additional Instructions: Please return to the emergency department if you develop severe and persistent chest pain, difficulty breathing, dizziness, leg swelling or if you are coughing up blood as these can be signs of a medical emergency. Please call your doctor for a follow up appointment to determine the need for further testing. Patient Language: Sammarinese Prescriptions: No Action ropinirole 1 mg tablet See Rx Instructions .ROUTE .COMPLEX Qty: 90 1RF Dose Instruction: TAKE 1 TABLET(1 MG) BY MOUTH EVERY DAY AT BEDTIME Rx Instructions: TAKE 1 TABLET(1 MG) BY MOUTH EVERY DAY AT BEDTIME trazodone 150 mg tablet See Rx Instructions .ROUTE .COMPLEX Qty: 90 1RF Dose Instruction: TAKE 1 TABLET BY MOUTH EVERY NIGHT AT BEDTIME Rx Instructions: TAKE 1 TABLET BY MOUTH EVERY NIGHT AT BEDTIME alendronate 70 mg tablet See Rx Instructions .ROUTE .COMPLEX Qty: 12 1RF Dose Instruction: TAKE 1 TABLET BY MOUTH ONCE WEEKLY Rx Instructions: TAKE 1 TABLET BY MOUTH ONCE WEEKLY albuterol sulfate 90 mcg/actuation HFA aerosol inhaler 2 puff INHALATION Q4-6H PRN (Reason: Shortness Of Breath) acetaminophen-calcium carbonat 500-250 mg tablet 2 tablet PO PRN PRN (Reason: Pain) buspirone 15 mg tablet 15 mg PO BID Qty: 180 1RF Rx Instructions: 15 mg orally twice a day; clonazepam 1 mg tablet 1 mg PO HS Qty: 30 1RF venlafaxine 150 mg capsule,extended release 24hr See Rx Instructions .ROUTE .COMPLEX Qty: 90 1RF Dose Instruction: TAKE 1 CAPSULE BY MOUTH EVERY DAY Rx Instructions: TAKE 1 CAPSULE BY MOUTH EVERY DAY Follow-up/Referrals: Luis Felipe Peña APRN [Primary Care Provider, Internal Medicine] - 1 Week
== END 2024-12-08 15:58 | disposition home or self-care (01) ==
PROVIDERS: Emergency Medicine; Emergency Provider Emergency Medicine; PCP Nurse Practitioner
DX: R00.2 Palpitations (principal); F03.90 Unspecified dementia, unspecified severity, without behavioral disturbance, psychotic disturbance, mood disturbance, and anxiety; E78.00 Pure hypercholesterolemia, unspecified; N28.9 Disorder of kidney and ureter, unspecified; K21.9 Gastro-esophageal reflux disease without esophagitis; G25.81 Restless legs syndrome; M19.90 Unspecified osteoarthritis, unspecified site; F41.9 Anxiety disorder, unspecified; F32.A Depression, unspecified; Z96.659 Presence of unspecified artificial knee joint; Z86.16 Personal history of COVID-19; Z86.73 Personal history of transient ischemic attack (TIA), and cerebral infarction without residual deficits; Z86.2 Personal history of diseases of the blood and blood-forming organs and certain disorders involving the immune mechanism; Z87.891 Personal history of nicotine dependence; Z79.899 Other long term (current) drug therapy; R94.31 Abnormal electrocardiogram [ECG] [EKG]
CPT/HCPCS: 36415; 71046; 80053; 83690; 84484; 85025; 85610; 85730; 93005; 99284; A9270

== ENCOUNTER 2025-02-17 07:44 | Outpatient (CLI) | payer MEDICARE, BC, SELFPAY ==
--- NOTE | ~2025-02-17 | MM_ITS ---
EXAMINATION: MM screening [facility] BI w [facility] HISTORY: Screening TECHNIQUE: Craniocaudal and mediolateral oblique 3-D tomosynthesis images were obtained and synthetic 2-D images were generated. CAD analysis was submitted and interpreted. COMPARISON: Comparison to multiple prior studies sequentially, with oldest reviewed study dated 12/15/2015. BREAST PARENCHYMAL COMPOSITION: Not dense: There are scattered areas of fibroglandular density. FINDINGS: The left breast is stable without evidence for malignancy. There are developing nodular asymmetries in the periareolar location of the right breast on CC view. There are benign bilateral breast calcifications. No suspicious areas of architectural distortion. IMPRESSION: 1. Developing nodular asymmetries of the right breast. 2. Additional mammographic views and possible breast ultrasound are recommended. BI-RADS Category 0: Incomplete: Needs additional imaging evaluation. Reviewed, dictated and finalized at location B. GHT DISPATCHER IMPRESSION: 1. Developing nodular asymmetries of the right breast. 2. Additional mammographic views and possible breast ultrasound are recommended . BI-RADS Category 0: Incomplete: Needs additional imaging evaluation.
--- OUTSIDE RECORDS SUMMARY | 2025-02-17 07:47 | XMS_ITS | Clinical Summary ---
Author Organization [facility] Address [address] [place] [address] Care Team Providers Care Costumer Name Role Phone Maria Isabel Smith Cassy SLEEP LAB TECHNOLOGIST Unavailable [phone] Ryan Minor DO Primary Care Provider [phone] Allergies No known active allergies Medications venlafaxine [...] (three) times a day 90 capsule 12/04/2024 Active Active Problems Problem Noted Date Diagnosed [...] Encounters Date Type Department Care Team Description 02/11/2025 10:55 AM GLASS CLEANING MACHINE TENDER - 02/11/2025 11:59 PM GLASS CLEANING MACHINE TENDER Hospital Encounter [facility] Imaging and Radiology [address] [place] [address] Spondylolisthesis of lumbosacral region; Spinal stenosis of lumbar region without neurogenic claudication; Facet hypertrophy of lumbar region Discharge Disposition: Discharge to home or self care 01/31/2025 12:30 PM CDT Office Visit [facility] Medicine Neurosurgery [address] [facility] [address] [place] [address] Salazar Jimenez PA Spondylolisthesis of lumbosacral region (Primary Dx); Spinal stenosis of lumbar region without neurogenic claudication; Facet hypertrophy of lumbar region 01/31/2025 11:43 AM CDT - 01/31/2025 11:59 PM CDT Hospital En[id number] [address] [facility] [address] [place] [address] Lumbar radiculopathy Discharge Disposition: Discharge to home or self care 01/27/2025 Orders Only [facility] Medicine Neurosurgery [address] [facility] [address] [place] [phone] Salazar Jimenez PA Lumbar radiculopathy (Primary Dx) 01/21/2025 Telephone [facility] Medicine Scheduling [facility] [place] [address] Lisa Burt 01/20/2025 Orders Only [facility] Medical Group Orthopedic and Sports Medicine [address] [place] [phone] Ronnie Lindo PA SI joint arthritis (Primary Dx); Lumbosacral radiculopathy 01/20/2025 Telephone [facility] Medical Group Orthopedic and Sports Medicine [address] [place] [phone] Ronnie Lindo PA 01/08/2025 Telephone [facility] Medical Group Orthopedics and Sports Medicine [address] [place] [address] [address] [place] [address] Ronnie Lindo PA pain management referral 01/01/2025 2:39 PM CDT - 01/01/2025 11:59 PM CDT Hospital Encounter [facility] [address] [place] [address] Lumbosacral radiculopathy; Left hip pain; SI joint arthritis Discharge Disposition: Discharge to home or self care 01/01/2025 Results Follow-Up [facility] Medical Group Orthopedic and Sports Medicine [address] [place] [phone] Ronnie Lindo PA MRI Lumbar Spine WO Contrast 12/27/2024 Orders Only [facility] Medical Group Orthopedics and Sports Medicine [address] [place] [address] [address] [place] [phone] Ronnie Lindo PA Lumbosacral radiculopathy (Primary Dx); Left hip pain; SI joint arthritis 12/04/2024 11:20 AM CDT Ancillary Procedure [facility] Medical Group Imaging at [address] [phone] Left hip pain 12/04/2024 11:15 AM CDT Office Visit [facility] Medical [facility] Orthopedic and Sports Medicine [address] [place] [phone] Ronnie Lindo PA Left hip pain (Primary Dx); Lumbosacral radiculopathy; SI joint arthritis 12/04/2024 Telephone [facility] Orthopedic and Sports Medicine [address] [place] [phone] Ronnie Lindo PA MRI 12/04/2024 Orders Only [facility] Orthopedic and Sports Medicine [address] [place] [phone] Ronnie Lindo PA Left hip pain (Primary Dx); Lumbosacral radiculopathy; SI joint arthritis 12/04/2024 Orders Only [facility] Orthopedic and Sports Medicine [address] [place] [phone] Ronnie Lindo PA Left hip pain (Primary Dx); Lumbosacral radiculopathy; SI joint arthritis from Last 3 Months Surgical History Surgery Date Site/Laterality Comments MT TONSILLECTOMY PRIMARY/SEC ONDARY <AGE 14 Tonsillectomy - (Added by Conv) MT APPENDECTOMY Appendectomy - (Added by Conv) BLADDER SURGERY Bladder Surgery - (Added by Conv) BACK SURGERY HYSTERECTOMY KNEE SURGERY TONSILLECTOMY [...] Other 2 Heart Disease - (Added by Conv) Migraines Other 3 Migraine Headac he - (Added by Conv) Relation Name Status Comments Father Mother Other 1 Other 2 Other 3 Social History Tobacco Use Types Packs/Day Years Used Date Smoking Tobacco: Former Cigarettes 1 1978 Smokeless Tobacco: Never Tobacco Cessation:Counseling Given: Not Answered Alcohol Use Standard Drinks/Week Comments Yes 0 (1 standard drink = 0.6 oz pur e alcohol) social Comments Unknown Sex and Gender Information Value Date Recorded Sex Assigned at Not on file Legal Sex Female 1:15 PM GLASS CLEANING MACHINE TENDER Gender Identity Female 10/26/2017 11:06 AM CDT Sexual Orientation Not on file Last Filed Vital Signs Vital Sign Reading Time Taken Comments Blood Pressure 137/90 12/04/2024 11:26 AM CDT Pulse 92 12/04/2024 11:26 AM CDT Temperature - - Respiratory Rate - - Oxygen Saturation 96% 03/14/2018 2:56 PM GLASS CLEANING MACHINE TENDER Inhaled Oxygen Concentration - - Weight 65.8 kg (145 lb) 01/31/2025 12:00 PM CDT Height 152.4 cm (5') 01/31/2025 12:00 PM CDT Body Mass Index 28.32 01/31/2025 12:00 PM CDT Plan of Treatment Health Maintenance Due [...] Well Visit 65+ 02/28/2017 Covid-19 Vaccine ( - season) 2024 02/05/2021, 06/22/2020, 05/28/2020 Influenza Vaccine (#1) 2024 05/01/2018, 2010 Procedures Procedure Name Priority Date/Time Associated Diagnosis Comments CT LUMBAR SPINE WO CONTRAST Schedule Routine, Read Routine (OP Routine) 02/11/2025 11:17 AM GLASS CLEANING MACHINE TENDER Spondylolisthesis of lumbosacral region Spinal stenosis of lumbar region without neurogenic claudication Facet hypertrophy of lumbar region XR SCOLIOSIS 6 OR MORE VIEWS Schedule Routine, Read Routine (OP Routine) 01/31/2025 11:52 AM CDT Lumbar radiculopathy MRI LUMBAR SPINE WO CONTRAST Schedule RUSTY, Read Routine (Patient lives out of area) 01/01/2025 3:05 PM CDT Lumbosacral radiculopathy Left hip pain SI joint arthritis from Last 3 Months Results * CT Lumbar Spine WO Contrast (02/11/2025 11:17 AM GLASS CLEANING MACHINE TENDER) Anatomical Region Laterality Modality Spine N/A Computed Tomogra phy 02/12/2025 7:56 AM GLASS CLEANING MACHINE TENDER Impressions 02/12/2025 7:56 AM GLASS CLEANING MACHINE TENDER 1. Grade 1 anterolisthesis of L4 on L5. 2. At L4-L5, there is severe facet arthropathy and degenerative disc disease resulting in moderate to severe spinal canal stenosis. 3. Moderate right and mild left neural foraminal stenosis at L5-S1. 4. Otherwise multilevel degenerative changes in the lumbar spine as outlined above. Electronically signed by: Lilia Shields DO Narrative 02/12/2025 7:56 AM GLASS CLEANING MACHINE TENDER EXAMINATION: CT of the lumbar spine without contrast HISTORY: Low back pain and spondylolisthesis. TECHNIQUE: CT of the lumbar spine was performed according to standard protocol without intravenous contrast. COMPARISON: MRI lumbar spine dated 01/01/2025 from [facility], scoliosis radiographs dated 01/31/2025 FINDINGS: Grade 1 anterolisthesis of L4 on L5. There is no acute fracture. The vertebral bodies are normal in height without compression fractures. Multilevel degenerative disc disease, most pronounced at L5-S1 with vacuum disc phenomenon, moderate to severe disc space narrowing, and subjacent degenerative endplate changes. Nonobstructive left renal calculus is noted. Scattered atherosclerosis. Cholecystectomy clips in the gallbladder fossa. Partially visualized likely left renal cyst. L1-L2: No significant disc bulge or herniation. There is mild bilateral facet arthropathy. There is no neuroforaminal stenosis. There is no spinal canal stenosis. L2-L3: Minimal disc bulge. There is mild bilateral facet arthropathy. There is no neuroforaminal stenosis. There is no spinal canal stenosis. L3-L4: Mild disc bulge. There is mild right and mild to moderate left facet arthropathy. There is no neuroforaminal stenosis. There is no spinal canal stenosis. L4-L5: Disc bulge and slight disc uncovering. There is severe bilateral facet arthropathy. There is no neuroforaminal stenosis. There is moderate to severe spinal canal stenosis. L5-S1: Disc bulge slightly asymmetric to the right. There is moderate bilateral facet arthropathy. There is moderate right and mild left neuroforaminal stenosis. There is no spinal canal stenosis. Procedure Note Lilia Blanchard, DO - 02/12/2025 EXAMINATION: CT of the lumbar spine without contrast HISTORY: Low back pain and spondylolisthesis. TECHNIQUE: CT of the lumbar spine was performed according to standard protocol without intravenous contrast. COMPARISON: MRI lumbar spine dated 01/01/2025 from [facility], scoliosis radiographs dated 01/31/2025 FINDINGS: Grade 1 anterolisthesis of L4 on L5. There is no acute fracture. The vertebral bodies are normal in height without compression fractures. Multilevel degenerative disc disease, most pronounced at L5-S1 with vacuum disc phenomenon, moderate to severe disc space narrowing, and subjacent degenerative endplate changes. Nonobstructive left renal calculus is noted. Scattered atherosclerosis. Cholecystectomy clips in the gallbladder fossa. Partially visualized likely left renal cyst. L1-L2: No significant disc bulge or herniation. There is mild bilateral facet arthropathy. There is no neuroforaminal stenosis. There is no spinal canal stenosis. L2-L3: Minimal disc bulge. There is mild bilateral facet arthropathy. There is no neuroforaminal stenosis. There is no spinal canal stenosis. L3-L4: Mild disc bulge. There is mild right and mild to moderate left facet arthropathy. There is no neuroforaminal stenosis. There is no spinal canal stenosis. L4-L5: Disc bulge and slight disc uncovering. There is severe bilateral facet arthropathy. There is no neuroforaminal stenosis. There is moderate to severe spinal canal stenosis. L5-S1: Disc bulge slightly asymmetric to the right. There is moderate bilateral facet arthropathy. There is moderate right and mild left neuroforaminal stenosis. There is no spinal canal stenosis. IMPRESSION: 1. Grade 1 anterolisthesis of L4 on L5. 2. At L4-L5, there is severe facet arthropathy and degenerative disc disease resulting in moderate to severe spinal canal stenosis. 3. Moderate right and mild left neural foraminal stenosis at L5-S1. 4. Otherwise multilevel degenerative changes in the lumbar spine as outlined above. Electronically signed by: Lilia Shields DO Salazar JANG CT PROCEDURES Final R esult * XR Scoliosis 6 or More Views (01/31/2025 11:52 AM CDT) Anatomical Region Laterality Modality Spine N/A Computed Radiogr aphy 01/31/2025 12:1 1 PM CDT Impressions 01/31/2025 12:11 PM CDT 1. Multilevel lumbar degenerative disc disease greatest and moderate to severe at L5-S1 Electronically signed by: Homer Boles MD Narrative 01/31/2025 12:11 PM CDT EXAMINATION: XR SCOLIOSIS 6 OR MORE VIEWS HISTORY: Back pain. FINDINGS: Comparison to 01/01/2025. No significant abnormal curvature the spine. Mild right coronal imbalance. No sagittal imbalance. No significant pelvic obliquity. Multilevel lumbar degenerative disc disease greatest and moderate to severe L5-S1. Grade 1 anterolisthesis of L4 on L5 in neutral position, unchanged with bending. Vertebral body heights preserved. Moderate multilevel facet osteoarthritis. Procedure Note Homer Boles MD - 01/31/2025 EXAMINATION: XR SCOLIOSIS 6 OR MORE VIEWS HISTORY: Back pain. FINDINGS: Comparison to 01/01/2025. No significant abnormal curvature the spine. Mild right coronal imbalance. No sagittal imbalance. No significant pelvic obliquity. Multilevel lumbar degenerative disc disease greatest and moderate to severe L5-S1. Grade 1 anterolisthesis of L4 on L5 in neutral position, unchanged with bending. Vertebral body heights preserved. Moderate multilevel facet osteoarthritis. IMPRESSION: 1. Multilevel lumbar degenerative disc disease greatest and moderate to severe at L5-S1 Electronically signed by: Homer Boles MD Salazar JANG XR PROCEDURES Final R esult * MRI Lumbar Spine WO Contrast (01/01/2025 3:05 PM CDT) Anatomical Region Laterality Modality Spine N/A Magnetic Resonan ce 01/01/2025 3:15 PM CDT Narrative 01/01/2025 3:24 PM CDT EXAM DESCRIPTION: MRI LUMBAR SPINE WO CONTRAST REASON FOR STUDY: Low back pain 6 weeks ago, aggravated lower back pulling weeds, per patient pain from this injury stays just in lower back TECHNIQUE: Sagittal and Axial imaging includes T1, T2, STIR sequences. COMPARISON: Lumbar spine radiographs dated 01/25/2022 and 11/14/2017. FINDINGS: SEGMENTATION: 5 hsz-kkz-oueviqp lumbar type vertebral bodies. ALIGNMENT: Grade 1 anterolisthesis of L4 on L5. VERTEBRAE: There is no acute compression fracture in the lumbar spine. The L5-S1 opposing endplate edematous type T1 hypointense, T2/STIR hyperintense marrow signal alteration is nonspecific and presumed to be degenerative in nature as there is no significant adjacent soft tissue inflammation. Elsewhere additional cazf-dn-jazithnt endplate degenerative changes. Moderate to severe facet arthropathy favoring the mid to lower lumbar levels. The L3-L4 through L5-S1 facet joint STIR hyperintense signal can be seen with synovitis in the proper clinical scenario. DISC HEIGHT: Diffuse disc desiccation and height loss ranging up to moderate to severe at L5-S1. HARDWARE: None in the spine. CORD/CAUDA: Conus medullaris terminates at L1. LOWER THORACIC: Incompletely imaged. Degenerative changes without high-grade spinal canal stenosis. INDIVIDUAL DISC LEVELS: L1-L2: No significant disc bulge, spinal canal or neural foraminal narrowing. L2-L3: Mild disc bulge with thickened ligamentum flavum and facet arthropathy. Flattening of the ventral thecal sac. No significant neural foraminal narrowing. L3-L4: No significant disc bulge, spinal canal or neural foraminal narrowing. There is thickened ligamentum flavum and bilateral facet arthropathy. L4-L5: Anterolisthesis of L4 on L5 with unroofing of the disc. Thickened ligamentum flavum and advanced facet arthropathy. On MPR analysis there is moderate to severe spinal canal stenosis and ufjse-pwriggw-mysv-left lateral recess narrowing. Mild proximal right and no significant left neural foraminal narrowing. L5-S1: Left lamina appears deficient however, a surgical history is not provided. Subsequently chronic posttraumatic or developmental variant is also included in the differential. Disc bulge with marginal spur formation. Bilateral facet arthropathy. No significant spinal canal stenosis. Moderate left and moderate to severe right neural foraminal narrowing. Disc/marginal spur and facet arthropathy contacting the exiting L5 nerve roots. VISUALIZED UPPER ABDOMEN: Partially imaged kidneys with T2 hyperintense foci on both sides are incompletely characterized this lumbar spine MRI and could reflect a cyst. IMPRESSION: 1. There is no acute compression fracture in the lumbar spine. 2. Lumbar disc degeneration ranging up to moderate to severe with thickened ligamentum flavum and advanced facet arthropathy as described. The spinal canal narrowing is most noticeable at L4-L5. 3. Varying degrees of bilateral neural foraminal narrowing is most noticeable at L5-S1 where there is moderate to severe stenosis. 4. Other findings as above. THIS IS AN ELECTRONICALLY VERIFIED FINAL REPORT 01/01/2025 3:24 PM - Electronically signed by Blayne Edge D.O. AP: AP Report ID: [id number] Reading Location: [place] [address] Procedure Note Blayne Edge, DO - 01/01/2025 EXAM DESCRIPTION: MRI LUMBAR SPINE WO CONTRAST REASON FOR STUDY: Low back pain 6 weeks ago, aggravated lower back pulling weeds, per patient pain fromthis injury stays just in lower back TECHNIQUE: Sagittal and Axial imaging includes T1, T2, STIR sequences. COMPARISON: Lumbar spine radiographs dated 01/25/2022 and 11/14/2017. FINDINGS: SEGMENTATION: 5 ogh-lje-qeoyapi lumbar type vertebral bodies. ALIGNMENT: Grade 1 anterolisthesis of L4 on L5. VERTEBRAE: There is no acute compression fracture in the lumbar spine.The L5-S1 opposing endplate edematous type T1 hypointense, T2/STIRhyperintense marrow signal alteration is nonspecific and presumed to be degenerative in nature as there is no significant adjacent soft tissue inflammation. Elsewhere additional esjg-yx-jgmnmtkb endplate degenerative changes.Moderate to severe facet arthropathy favoring the mid to lower lumbar levels. The L3-L4 through L5-S1 facet joint STIR hyperintense signal can be seen with synovitis in the proper clinical scenario. DISC HEIGHT: Diffuse disc desiccation and height loss ranging up tomoderate to severe at L5-S1. HARDWARE: None in the spine. CORD/CAUDA: Conus medullaris terminates at L1. LOWER THORACIC: Incompletely imaged. Degenerative changes without high-grade spinal canal stenosis. INDIVIDUAL DISC LEVELS: L1-L2: No significant disc bulge, spinal canal or neural foraminalnarrowing. L2-L3: Mild disc bulge with thickened ligamentum flavum and facetarthropathy. Flattening of the ventral thecal sac. No significant neural foraminal narrowing. L3-L4: No significant disc bulge, spinal canal or neural foraminalnarrowing. There is thickened ligamentum flavum and bilateral facet arthropathy. L4-L5: Anterolisthesis of L4 on L5 with unroofing of the disc. Thickened ligamentum flavum and advanced facet arthropathy. On MPR analysis thereis moderate to severe spinal canal stenosis and eievq-cpkemmc-gegx-leftlateral recess narrowing. Mild proximal right and no significant left neural foraminal narrowing. L5-S1: Left lamina appears deficient however, a surgical history is not provided. Subsequently chronic posttraumatic or developmental variant isalso included in the differential. Disc bulge with marginal spur formation. Bilateral facet arthropathy. No significant spinal canal stenosis.Moderate left and moderate to severe right neural foraminal narrowing.Disc/marginal spur and facet arthropathy contacting the exiting L5 nerve roots. VISUALIZED UPPER ABDOMEN: Partially imaged kidneys with T2 hyperintensefoci on both sides are incompletely characterized this lumbar spine MRI andcould reflect a cyst. IMPRESSION: 1. There is no acute compression fracture in the lumbar spine. 2. Lumbar disc degeneration ranging up to moderate to severe withthickened ligamentum flavum and advanced facet arthropathy as described. The spinal canal narrowing is most noticeable at L4-L5. 3. Varying degrees of bilateral neural foraminal narrowing is most noticeable at L5-S1 where there is moderate to severe stenosis. 4. Other findings as above. THIS IS AN ELECTRONICALLY VERIFIED FINAL REPORT 01/01/2025 3:24 PM - Electronically signed by Blayne Edge D.O. AP: LIZZ Report ID: [id number] Reading Location: [id number] Ronnie DIAZ [facility] MRI PROCEDURES Final Re sult from Last 3 Months Insurance [employer] MEDICARE PPO MCR SUPPLEMENT [employer] MEDICARE PPO [employer] MEDICARE PPO [address] [employer] Care Teams Costumer Relationship Specialty Start Date End Date Ryan Minor [place] [address] [place] [address] PCP - General Internal Medicine 02/03/25 Maria Isabel Smith NP Nurse Practitioner Nurse Practitioner 09/18/20
--- OUTSIDE RECORDS SUMMARY | 2025-02-17 07:47 | XMS_ITS | Patient Health Record ---
Author Organization [facility] [employer] [facility] Address [address] [facility] [address] [place] [address] Care Team Providers Care Cutlery Grinder Name Role Phone Lorena Gonzalez [phone] Reason For Referral No Information Medications Medication [...] Replacemen t/Advantag e - Ppo [address] [address] [place] [address] [id number] AJ PELAEZ Self - patient is the insured [employer] - Fep Ppo [address] [place] [address] [id number] ALIX PELAEZ Spouse - patient is the spouse of the insured
--- OUTSIDE RECORDS SUMMARY | 2025-02-17 07:47 | XMS_ITS | Clinical Summary ---
Author Organization [facility] Owned it Address [address] [place] [address] Care Team Providers Care Coupon Collection Clerk Name Role Phone Ryan Minor Primary Care Provider [phone] Source Comments [facility],non-owned Affiliates and Associated Physician Practices is amultiple site organization consisting of ambulatory clinics and hospital sitesin [place], [place], [place] and [place]. This disclosure is being madepursuant to the Care Everywhere program and may not contain all informatio navailable regarding this patient. 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 Gender Identity Not on file Sexual [...] SCREENING FOR DIABETES 08/20/2021 9, 03/10/2017, 08/29/2013 DEPRESSION SCREENING 04/10/2024 COVID-19 VACCINE ( - 2024- 6 season) 2024 02/05/2021, 06/22/2020, 05/28/2020 INFLUENZA VACCINE (#1) 2024 9, 04/10/2010 HEPATITIS [...] this topic Medical Devices Implanted Type Area Claim Specialist Device Identifier Shelf Expiration Date Model / Serial / Lot Cmnt Bone Cblt 40gm Hvisc Strl Implanted:Qty: 1 on 04/30/2018 by Alix Mckenna MD at [facility] Right: Knee [employer] 08/24/2019 [id number] / / [id number] Cmpnt Ptlr 28mm 1 Pg Wire Ascnt Arcm Kn Implanted:Qty: 1 on 04/30/2018 by Alix Mckenna MD at [facility] Right: Knee [employer] 04/04/2023 [id number] / / [id number] Cmpnt Fem Kn Rt Cr Cmnt Prm Vngrd Intlk 62.5mm Implanted:Qty: 1 on 04/30/2018 by Alix Mckenna MD at [facility] Right: Knee [employer] 02/05/2028 [id number] / / [id number] Tray Tib 71mm Kn Cocr I Beam Implanted:Qty: 1 on 04/30/2018 by Alix Mckenna MD at [facility] Right: Knee [employer] 02/10/2028 [id number] / / [id number] Brng [id number] Vngrd Arcm Kn Ant Stab Implanted:Qty: 1 on 04/30/2018 by Alix Mckenna MD at [facility] Right: Knee [employer] 01/18/2023 [id number] / / [id number] Lens Iol 0 D +20 Marlo Mod L Bcnvx Acrsf - [id number] Implanted:Qty: 1 on 11/15/2021 by Liam Brito MD at [facility] Left: Eye [employer] 09/19/2026 SN60WF.200 / [id number] / Lens Iol 0 D +21.5 Marlo Mod L Bcnvx - [id number] Implanted:Qty: 1 on 11/29/2021 by Liam Brito MD at [facility] Right: Eye [employer] 09/25/2026 SN60WF.215 / [id number] / Procedures Procedure Name Priority Date/Time Associated Diagnosis Comments COMPREHENSIVE METABOLIC PANEL Routine 04/12/2018 2:15 PM FOOT PRESS OPERATOR Preop examination from Last 3 Months or Most Recently Relevant to Health Maintenance Results * (ABNORMAL) COMPREHENSIVE METABOLIC PANEL (04/12/2018 2:15 PM FOOT PRESS OPERATOR) Glucose 98 74 - 106 mg/dL 04/12/2018 3:03 PM FOOT PRESS OPERATOR [facility] Sodium 137 136 - 145 mmol/L 04/12/2018 3:03 PM FOOT PRESS OPERATOR [facility] Potassium 4.2 3.5 - 5.1 mmol/L 04/12/2018 3:03 PM FOOT PRESS OPERATOR [facility] Chloride 104 98 - 107 mmol/L 04/12/2018 3:03 PM FOOT PRESS OPERATOR [facility] CO2 30 22 - 31 mmol/L 04/12/2018 3:03 PM FOOT PRESS OPERATOR [facility] Calcium 8.4(L) 8.5 - 10.1 mg/dL 04/12/2018 3:03 PM FOOT PRESS OPERATOR [facility] Anion Gap 3(L) 8 - 16 mmol/L 04/12/2018 3:03 PM FOOT PRESS OPERATOR [facility] BUN 20 7 - 21 mg/dL 04/12/2018 3:03 PM [facility] Creatinine 0.88 0.50 - 1.30 mg/dL 04/12/2018 3:03 PM FOOT PRESS OPERATOR [facility] Alkaline Phosphatase 75 38 - 126 U/L 04/12/2018 3:03 PM FOOT PRESS OPERATOR [facility] ALT 23 13 - 61 U/L 04/12/2018 3:03 PM FOOT PRESS OPERATOR [facility] AST 12 5 - 40 U/L 04/12/2018 3:03 PM FOOT PRESS OPERATOR [facility] Protein Total 6.9 6.4 - 8.2 gm/dL 04/12/2018 3:03 PM FOOT PRESS OPERATOR [facility] Albumin 3.5 3.4 - 5.0 gm/dL 04/12/2018 3:03 PM FOOT PRESS OPERATOR [facility] Bilirubin Total 0.2 0.2 - 1.0 mg/dL 04/12/2018 3:03 PM FOOT PRESS OPERATOR [facility] eGFR by MDRD >60 >60 mL/min/1.7 3m2 04/12/2018 3:03 PM FOOT PRESS OPERATOR [facility] eGFR by MDRD >60 >60 mL/min/1.7 3m2 04/12/2018 3:[address] [facility] Blood BLOOD SPECIMEN / Unknown Venipuncture / Unknown 04/12/2018 2:15 PM FOOT PRESS OPERATOR 04/12/2018 2:41 PM FOOT PRESS OPERATOR Alix Mckenna MD LAB - CHEMISTRY ORDERABLES Fi nal Result [facility] [address] [place] [address] from Last 3 Months or Most Recently Relevant to Health Maintenance Insurance [facility] [place] [id number] [place] [address] * Guarantor: AJ L[employer] Account Type Relation to Patient Date of Phone Billing Address Personal/Family 1950 Advance Directives * Full Code (Latest Code Status on File) Date Activated Date Inactivated Comments 04/30/2018 1:54 PM 05/02/2018 2:43 PM Care Teams Coupon Collection Clerk Relationship Specialty Start Date End Date Ryan Minor DO [address] [place] [address] PCP - General 07/02/19
--- OUTSIDE RECORDS SUMMARY | 2025-02-17 07:47 | XMS_ITS | Encounter Summary ---
Author Organization [facility] Health Address [address] [place] [address] Care Team Providers Care Concrete Form Setter Name Role Phone Ryan Minor Primary Care Provider [phone] Encounter Details Date Type Department Care Team (Late st Contact Info) Description 09/15/2021 Telephone [facility] Pul[facility], Critical Care and Sleep Medicine [address] [place] [phone] Robbin Yun MD [address] [address] Social History Tobacco Use Types Packs/Day Years Used Date Smoking Tobacco: Former Smokeless Tobacco: Never Comments:quit 40 years ago Alcohol Use Standard Drinks/Week Comments No 0 (1 standard drink = 0.6 oz pur e alcohol) Comments No Sex and Gender Information Value Date Recorded Sex Assigned at Not on file 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 Please call patient. Patient Call Back number: [phone] documented in this encounter Plan of Treatment Not on file documented as of this encounter Visit Diagnoses Not on filedocumented in this encounter Care Teams Concrete Form Setter Relationship Specialty Start Date End Date Ryan Minor DO [address] [place] [address] PCP - General 07/02/19 documented as of this encounter
--- OUTSIDE RECORDS SUMMARY | 2025-02-17 07:47 | XMS_ITS | Data Portability ---
Author Organization [facility], [facility] Address [address] [place] [address] Care Team Providers Care Cotton Jammer Name Role Phone VANI FULLER Primary Care Provider [phone] ALISIA HUTSON Primary Care Provider Assessment Encounter Date Assessment Date Assessment LastModified by Organization Details LastModified Time 09/08/2020 09/08/2020 Annual gynecological exam performed. Patient will come back in a year unless there are new symptoms. Not available 09/08/2020 16:35:40 Plan of Treatment Reminders Order Date Submit Date Provider Last Modified By Organization Details Last Modified Time Details Appointments None recorded . Lab urinalys is, dipstick 2022 023 [email or web address] [address], [address], [place], [address], 18:26:03 Referral None recorded . Procedures None recorded . Surgeries None recorded . Imaging US, breast, unilater al 2020 021 [facility], [address], [place], [address], 15:51:43 MAMMO, diagnost ic, digital, bilatera l 2020 021 layran [facility], [address], [place], [address], 15:38:07 DEXA, axial skeleton + vertebra l fracture assessme nt 2020 021 chro[facility], [address] [facility], [place], [address], 2 16:46:34 Medication Orders clotrima zole-bet amethaso ne 1 %-0.05 % topical cream 2023 024 [id number], [address], [place], [place], [id number], 4 12:37:20 fluconaz ole 150 mg tablet 2023 024 [facility] #[id number], [address], [place], [place], [id number], 4 12:37:26 Cipro 500 mg tablet [address] [facility]94288, [address], [place], [place], [id number], 3 18:26:03 nystatin -triamci nolone 100,000 unit/gra m-0.1 % topical ointment [address] [facility]48734, [address], [place], [place], [id number], 3 18:26:03 nystatin -triamci nolone 100,000 unit/gra m-0.1 % topical ointment 2022 023 [facility] #89097, [address], [place], [place], [id number], 3 15:46:31 Patient TargetsNo targets recorded. Patient [...] t Abnor mal: No Resul ting Lab: [facility] [address] [facility] [address] Tel: CULTU RE ----- ----- ----- --- No growt h in 1 day (dete ction level of 10,00 0 colon ies / ml.) Not Available [facility] (Lab) [address], [place], [address], 06/18/2022 07:25:01 06/17/19 23 06/16/2022 urina lysis , dipst ick Leukocytes TRACE Not Available [facility] alexander [address], [place], [address], 06/16/2022 17:06:29 06/17/19 23 06/16/2022 urina lysis , dipst ick Blood +++ Not Available [place] [address], [place], [address], 06/16/2022 17:06:29 06/30/19 24 06/30/2023 VAGIN ITIS/ VAGIN OSIS, DNA PROBE angie sp. detection, direct probe Negati ve negati ve Not Available [facility] (Lab) [address] [place], [address], 07/03/2023 09:45:04 06/30/19 24 06/30/2023 VAGIN ITIS/ VAGIN OSIS, DNA PROBE gardnerella vag. detection, direct probe Negati ve negati ve Not Available [facility] (Lab) [address] [place], [address], 07/03/2023 09:45:04 06/30/19 24 06/30/2023 VAGIN ITIS/ VAGIN OSIS, DNA PROBE trichomonas vag. detection, direct probe Negati ve negati ve Not Available [facility] (Lab) [address] [facility], [place], [address], 07/03/2023 09:45:04 09/15/19 21 09/14/2020 US, breas t, unila teral No observ ation record ed. [address], [place], [address], 09/17/2020 16:14:13 09/15/19 21 09/14/2020 MAMMO , diagn ostic , digit al, bilat eral No observ ation record ed. [facility] [address] [place] [address], [place], [address], 09/17/2020 16:21:20 Result Notes None recorded. Problems Name Problem SNOMED Code Status Onset Date Resolution Date Notes Provider Name and Address Organization Details Recorded Time Urinary tract infectio us disease 20104296 Completed 201009/08/2020 Urinary Tract Infectio n;Record ed Elsewher e: No Locat ion: [facility] S ource: EHR Plane Tableman quinn: N Practi ce ID: 0001 Reynaldo lable Time: 02:15:00 PM [facility] 16:38:45 Microsco pic hematuri a [id number] Completed 201009/08/2020 MICROSCO PIC HEMATURI A;Record ed Elsewher e: No [facility] S ource: EHR Plane Tableman quinn: N Practi ce ID: 0001 Reynaldo lable Time: 02:15:00 PM [facility] 16:38:24 Vaginiti s and vulvovag initis Completed 201009/08/2020 Vaginiti s;Record ed Elsewher e: No Locat ion: [facility] S ource: EHR Plane Tableman quinn: N Practi ce ID: 0001 Reynaldo lable Time: 02:15:00 PM Laurel lopez, [facility] 16:38:48 Adult health examinat ion Completed 201009/08/2020 Routine Medical Exam;Rec orded Elsewher e: No Locat ion: [facility] S ource: EHR Plane Tableman quinn: N Practi ce ID: 0001 Reynaldo lable Time: 01:00:00 PM Laurel [facility], [facility] 16:38:13 Breast lump 15737362 Active 2010 Lump or mass in breast;P dolores ID: 0001 [facility] Available [facility] 14:46:41 Menopaus al symptom 00904052 Completed 201109/08/2020 Menopaus al or female climacte matthias states;R ecorded Elsewher e: No Locat ion: [facility] S ource: EHR Plane Tableman quinn: N Practi ce ID: 0001 Reynaldo lable Time: 02:00:00 PM Laurel [facility], [facility] 16:38:22 Ill-defi vanna intestin al infectio n Completed 201109/08/2020 No Show Fee;Prac carlotta ID: 0001 Laurel [facility], [facility] 16:38:18 Constipa tion 23400011 Completed 201209/08/2020 Constipa tion, unspecif ied;Arnaldo rded Elsewher e: No Locat ion: [facility] S ource: EHR Plane Tableman quinn: Y Practi ce ID: 0001 Reynaldo lable Time: 01:45:00 PM Laurel Skelton [facility] 16:38:15 Screenin g for malignan t neoplasm of rectum Completed 201209/08/2020 Screenin g for malignan t neoplasm s of the rectum;P dolores ID: 0001 Laurel Skelton [facility] 16:38:38 Screenin g for malignan t neoplasm of cervix Completed 201209/08/2020 Screenin g for malignan t neoplasm s of the cervix;R ecorded Elsewher e: No Locat ion: [facility] S ource: EHR Plane Tableman quinn: N Jacekti ce ID: 0001 Reynaldo lable Time: 10:00:00 AM Laurel Skelton [facility] 16:38:36 Speciali zed medical examinat ion Completed 201209/08/2020 Gynecolo gical Examinat ion;Arnaldo rded Elsewher e: No Locat ion: [facility] S ource: EHR Plane Tableman quinn: N Kari ce ID: 0001 Reynaldo lable Time: 10:00:00 AM Laurel Skelton [facility] 16:38:42 Prolapse of female genital organs 74798406 Completed 201209/08/2020 Other specifie d genital prolapse ;Practic e ID: 0001 Laurel Skelton [facility] 16:38:30 Uterine prolapse 87771774 Completed 201209/08/2020 Uterine prolapse without mention of vaginal wall prolapse ;Practic e ID: 0001 Laurel Skelton [facility] 16:38:47 Postoper ative follow-u p visit Completed 201209/08/2020 Follow-u p examinat ion, followin g unspecif ied surgery; Recorded Elsewher e: No Locat ion: [facility] S ource: EHR Plane Tableman quinn: N Jacekti ce ID: 0001 Reynaldo lable Time: 02:00:00 PM Laurel Skel[facility] 16:38:26 Right lower quadrant pain 101096000 Completed 201209/08/2020 Abdomina l pain, right lower quadrant ;Practic e ID: 0001 Laurel Skelton [facility] 16:38:33 Evaluati on finding Completed 201709/08/2020 Hematuri a, unspecif ied;Prac carlotta ID: 0001 Laurel Skelton [facility] 16:38:[address] Concept Completed 201709/08/2020 Encounte r for general adult medical exam w abnormal findings ;Practic e ID: 0001 Laurel Skelton [facility] 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 16:38:40 Problem Notes None recorded. Procedures Surgical History Date Name Laterality Status Provider Name and Address Organization Details Recorded Time 09/09/19 21 Date of Last Pap Smear completed [facility] 09/08/2020 16:41:50 08/02/19 18 Date of Last Mammogram completed [facility] 09/08/2020 16:42:15 04/10/19 13 Total Hysterectomy completed [facility] 09/08/2020 16:50:13 04/10/19 11 [facility] 09/08/2020 16:48:14 04/10/19 07 repair of stress incontinence by suprapubic sling completed [facility] 09/08/2020 16:48:31 04/10/19 05 Carpal tunnel surgery completed [facility] 09/08/2020 16:49:02 04/10/18 97 repair of stress incontinence by suprapubic sling completed [facility] 09/08/2020 16:49:23 04/10/18 66 Tonsillectomy completed [facility] 09/08/2020 16:48:03 04/10/18 62 appendectomy completed [facility] 09/08/2020 16:48:40 procedure on back completed [facility] 09/08/2020 16:47:51 extraction of cataract completed [facility] 06/30/2023 12:20:44 Imaging Results None recorded. Procedure Notes None recorded. Medical Equipment None Reported. Allergies Allergen ID Allergen Name Allergen Category Reaction Reaction Severity Criticality Documentation Date Start Date Code Code System Note Provider Name and Address Organization Details Recorded Time 55196 levofloxa андрей medicatio n Not available Not available Not available 03/27/2020 36566 RxNorm React ion: tendo ns hurt; Comme nt: [facility] Agent : Levaq uin; Laurel [facility], [facility] 3 15:28:11 Medications Name Sig Start Date Stop Date Status Note LastModified by Organization Details LastModified Time Miralax 17 gram/dose oral powder take by oral route every day mixed with 8 oz. water, juice, soda, coffee or tea active Prescrib ed Elsewher e: Yes Loca tion: [facility] M odify By: adan fine DateTime : 12/15/19 13 01:45:00 PM Not Available Not Available Not Available ropinirol e 1 mg tablet take 1 tablet by oral route 3 times every day active Prescrib ed Elsewher e: Yes Loca tion: [facility] M odify By: janel link DateTime : 01/05/20 11 02:15:00 PM Not Available Not Available Not Available trazodone 50 mg tablet take 1 tablet by oral route 3 times every day after meals active Prescrib ed Elsewher e: Yes Loca tion: Lisa [facility] odify By: adan fine DateTime : 12/15/19 [...] Elsewher e: Yes Loca tion: [facility] odify By: blessing fine DateTime : 06/08/19 12 02:00:00 PM Not Available Not Available Not Available BuSpar 5 mg tablet take 1 tablet by oral route 3 times every day 09/08 completed Prescrib ed Elsewher e: Yes Loca tion: [facility] odify By: blessing fine DateTime : 06/08/19 12 02:00:00 PM Not Available Not Available Not Available temazepam 7.5 mg capsule take 1 capsule by oral route every day at bedtime as needed 09/08 completed Prescrib ed Elsewher e: Yes Loca tion: [facility] odify By: blessing fine DateTime : 06/08/19 12 02:00:00 PM Not Available Not Available Not Available Macrobid 100 mg capsule take 1 capsule (100MG) by oral route every 12 hours with food 2011 completed Prescrib ed Elsewher e: No Locat ion: [facility] odify By: blessing fine DateTime : 04/20/19 12 03:30:20 PM Not Available Not Available Not Available nystatin- triamcino lone 100,000 unit/gram -0.1 % topical ointment APPLY TO THE AFFECTED AREA(S) BY TOPICAL ROUTE 2 TIMES PER DAY 2022 active Not Available Not Available Not Avai lable FiberCon 625 mg tablet 06/15 completed Prescrib ed Elsewher e: Yes Loca tion: Brycenanda licha [facility] odify By: adan fine DateTime : 12/15/19 13 01:45:00 PM Not Available Not Available Not Available Metrogel Vaginal 0.75 % (37.5 mg/5 gram) insert 1 applicat orful (37.5MG) by vaginal route every day at bedtime 09/08 completed Prescrib ed Elsewher e: No Locat ion: [facility] odify By: tgingric h Encoun ter DateTime : 01/29/20 13 10:00:00 AM Not Available Not Available Not Available Flagyl 500 mg tablet take 1 tablet (500MG) by oral route every 12 hours 01/02 completed Prescrib ed Elsewher e: No Locat ion: Lisa [facility] odify By: ton Vu ter DateTime : 12/27/19 13 03:55:25 PM Not [...] Elsewher e: Yes Loca tion: [facility] odify By: janel link DateTime : 01/05/20 11 02:15:00 PM Not Available Not Available Not Available Transderm -Scop 1 mg over 3 days transderm al patch apply 1 patch by transder mal route 09/08 completed Prescrib ed Elsewher e: No Locat ion: [facility] odify By: tgingric h Encoun ter DateTime [...] Elsewher e: Yes Loca tion: [facility] odify By: janel Peterson r DateTime : 01/05/20 11 02:15:00 PM Not Available Not Available Not Available Prempro 0.3 mg-1.5 mg tablet take 1 tablet by oral route every day 2011 completed Prescrib ed Elsewher e: No Locat ion: [facility] odify By: isidro Mendezou nter DateTime : 06/08/19 12 02:00:00 PM Not Available Not Available Not Available ProAir HFA 90 mcg/actua tion aerosol inhaler inhale 2 puff by inhalati on route every 4 - 6 hours as needed 06/15 completed Prescrib ed Elsewher e: Yes Loca tion: [facility] odify By: adan abrahamuntvero DateTime : 02/07/20 13 02:00:00 PM Not Available Not Available Not Available Seroquel 50 mg tablet take 1 tablet by oral route 2 times every day 09/08 completed Prescrib ed Elsewher e: Yes Loca tion: [facility] odify By: janel Peterson r DateTime : 01/05/20 11 02:15:00 PM Not Available Not Available Not Available Tirosint 13 mcg capsule take 1 capsule by oral route every day 09/08 completed Prescrib ed Elsewher e: Yes Loca tion: [facility] odify By: blessing abrahamuntvero DateTime : 06/08/19 12 02:00:00 PM Not Available Not Available Not Available Xarelto 10 mg tablet take 1 tablet by oral route every day 09/08 completed Prescrib ed Elsewher e: Yes Loca tion: [facility] odify By: adan abrahamunter DateTime : 03/28/20 13 09:00:00 AM Not Available Not Available Not Available Linzess 145 mcg capsule take 1 capsule (145MCG) by oral route every day on an empty stomach at least 30 minutes before 1st meal of the day swallowi ng whole. Do not break, chew and/or open. 2012 active Prescrib ed Elsewher e: No Locat ion: Lisa [facility] odify By: elizabeth yee DateTime : 12/15/19 01:45:00 PM Not Available Not Available Not Available Eliquis 2.5 mg tablet Take 1 tablet twice a day by oral route. active Not Available Not Available No t Available Vitals Date Recorded Systolic And Diastolic Provider Name and Address Organization Details Last Updated DateTime 06/15/2022 132/79 mm[Hg] Maria Isabel Smith, [facility] [address], [place], [address], [facility] 06/15/2022 15:38:27 Date Recorded Body weight Provider Name an d Address Organization Details Last Updated DateTime 06/15/[address] [facility] 06/15/2022 15:28:03 Date Recorded Body height Body mass index (BMI) Body weight Systolic And Diastolic Provider Name and Address Organization Details Last Updated DateTime 06/16/2022 152.4 cm 30.5 kg/m2 62808.41 g 131/85 mm[Hg] Dary Mays [facility] 06/16/2022 16:48:20 Date Recorded Body weight Systolic And Diastolic Provider Name and Address Organization Details Last Updated DateTime 06/30/2023 27998.19 g 131/81 mm[Hg] Laurel Manriquez [facility] 06/30/2023 12:19:06 Date Recorded Systolic And Diastolic Provider Name and Address Organization Details Last Updated DateTime 09/08/2020 142/76 mm[Hg] Maria Isabel Smith [facility] [address], [place], [address], [facility] 09/10/2020 09:47:54 Date Recorded Body height Body mass index (BMI) Body weight Systolic And Diastolic Provider Name and Address Organization Details Last Updated DateTime 09/08/2020 152.4 cm 29.3 kg/m2 92424.86 g 152/88 mm[Hg] Laurel Skelton [facility] 09/08/2020 16:36:45 Social History Question Answer Notes LastModified by PhilipEventup Details LastModified Time Tobacco Smoking Status Never Smoker Laurel Skelton [facility] 09/08/2020 16:47:18 Are You Blind Or Do You Have [...] Yes Information not available 09/08/2020 Do You Use Sunscreen Routinely? Yes Information not available 09/08/2020 Do You Have Difficulty Walking Or Climbing Stairs? No Information not available 06/15/2022 Sex: Unknown Functional Status Question Answer Note LastModified by [employer] Details LastModified Time Do you use any illicit or recreational drugs? No Information not available 09/08/2020 What is your level of alcohol consumption? Occasional Information not available 09/08/2020 Are you able to walk independently without assistance or assistive devices? YESWOREST Information not available 09/08/2020 Are you able to care for yourself independently? Yes Information not available 06/15/2022 Do you have difficulty dressing, bathing, grooming, or toileting? No Information not available 06/15/2022 What is your exercise level? Occasional Information not available 09/08/2020 Mental Status Question Answer Note LastModified by Organization D etails LastModified Time Do you feel stressed (tense, restless, nervous, or anxious, or unable to sleep at night)? [id number] Information not available 09/08/2020 Family History Relationship Description Onset Age of this Age Resolved Age Notes LastModified by Organization Details LastModified Time Brother Anxiety disorder Not available 2020 16:44:29 Brother Depressive disorder Not available 2020 16:44:54 Father Anxiety disorder Not available 2020 16:44:35 Father Depressive disorder Not available 2020 16:44:54 Father Malignant neoplasm of colon Not available 2020 16:45:01 Mother Congenital heart disease Not available 2020 16:45:34 Mother Hypertensive disorder Not available 2020 16:45:41 Paternal Aunt Anxiety disorder Not available 2020 16:45:53 Paternal Aunt Depressive disorder Not available 2020 16:45:58 Paternal Grandfather Anxiety disorder Not available 2020 16:46:09 Paternal Grandfather Depressive disorder Not available 2020 16:46:14 Paternal Uncle Malignant neoplasm of lung Not available 2020 16:46:26 Sister Multiple sclerosis Not available 2020 16:46:40 Sister Anxiety disorder Not available 2020 16:46:47 Sister Depressive disorder Not available 2020 16:46:52 Medical History Condition Response Anxiety Disorder Y Other Y Anemia Y Hematologic disorders Y Depression/ depression Y Hypertension Y Asthma Y GI Problems Y Gynecological History Statement/Question Response If Post [...] Diagnosis SNOMED-CT Code Diagnosis ICD10 Code Diagnosis IMO Codes Diagnosis Note [id number] Maria Isabel Smith [facility] [address] [address] 09/08/2020 16:06:27 09/09/2020 14:59:58 Gynecologic examination 46468042 Z01.419 Take Calcium with Vitamin D 12-1500mg daily. Do monthly self breast exams. It is advised to get annual flu shot in the fall and she could obtain at [facility] or [facility] care clinic. If you haven't received the Tdap [...] Mammo ordered Dexa ordered Postmenopa usal osteopenia 451188312 M85.80 Started medication for osteporosi s by PCP. Will let us know name of medication . Mastodynia of left breast [id number] 7392161 N64.4 N63.20 Will schedule. [id number] GERALD [facility] [address] [address] 06/15/2022 15:16:19 06/15/2022 16:49:46 Pain in pelvis 76776482 R10.2 Wants to discuss previous Mesh surgery [...] her make MD consult to discuss with ASSISTANT DIRECTOR OF PUBLIC WORKS Surgeon for their input/arnaldo mmendation s.Agreeabl e to plan of care. Time spent in visit is a total of 30 mins with at least 50% of visit consisting of counseling and review of plan of care. Vulval irritation 105896 003 N90.89 Might benefit from some topical [...] pads. Wear cotton clothing. VCG sheet reviewed. 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 History of genital prolapse 430686374 Z87.42 Urinary tr act infectious disease 19376400 N39.0 [id number] Isrrael Butts MD [facility] [address] [address] 06/30/2023 11:52:13 06/30/2023 13:04:02 Vulvovaginitis 91084521 N76.0 73-year-ol d female presents for vulvar [...] Recorded Advance Directives Directive None Recorded Payers Insurance Date Sequence Insurance Name Policy Number Policy Marte Covered Member ID Marte Member ID Guarantor Name 06/28/2023 2 [facility] - [facility] - DOS PRIOR TO 2024 (PPO) Az Butler [id number] ALBRECHT Zena Butler 06/30/2023 1 [employer] (MEDICARE REPLACEMENT/ADV ANTAGE - PPO) Katherine Butler [id number] Zena Butler Notes Date Note Type Note Provider Name and Address Organization Details Recorded Time 1 text/html 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 For vaginal bleeding, patient reportshistory of menopause having occurredandno history of post menopausal bleeding. For urinary symptoms, patient reportsno hematuria,no incontinence,no nocturia, andno urinary frequency. For vulva, patient reportsno genital lesionandno vulvar atrophy. For vagina, patient reportsnormal vaginal dischargeandno vaginal atrophy.Breast symptomsFor breast, patient reportsno breast lump,no nipple discharge, andno breast pain.Psychological symptomsFor sexual complaints, patient reportsno sexual complaints. For psychological symptoms, patient reportsno depressionandno anxiety.Preventative measuresFor preventive measures, patient reportsencourage regular mammograms starting age 40,encourage self breast examination,encourage regular exercise,encourage no tobacco use,needs to schedule mammogram (having some left breast tenderness for almost 3mos.), andhistory of recent colonoscopy. Maria Isabel Smith, [facility] [address], [place], [address], [facility] 09/10/2020 09:52:14 3 text/html ROS as noted in the HPI Patient is a 72yo white female post-menopause with Hx of hysterectomy [...] for at least the last 6mos.Not routinely SA-penetration.Monogamous . In addition, she feels the inner portions [...] d/c, odor, irritation, itching Maria Isabel Smith, [facility] [address], [place], [address], [facility] 06/15/2022 16:18:08 3 text/html This patient is a 72-year-old female [...] urogynecologist. Isrrael Butts MD [address], [place], [address], [facility] 06/16/2022 18:26:25 4 text/html Vaginal/Vulvar ProblemReported by Patient 73-year-old female presents for vulvar irritation and discharge. [...] the vulva. Spent more than 20 minutes [id number]. More than 50% was counseling. Isrrael Butts MD [address], [place], [address], [place] [facility] 06/30/2023 12:58:41 OBGyn Episode Ob Episode Information Episode Created Date Number of Fetuses Patient Bloodtype Patient rh Status Prepregnancy Weight lbs Domestic Partner Domestic Partner Phone Father Name Shelter Director Status 09/09/19 21 1 CLOSED Fetus Data First Name Last Name Admitted to NICU Weight (g) Sex Living Outcome Pediatric Complications Fetus ID Race Codes Race Delivery Type , Spontane ous 28168 Juan Calculation Initial Juan Date Initial Exam [...] Domestic Partner Domestic Partner Phone Father Name Shelter Director Status 09/09/19 21 1 CLOSED Fetus Data First Name Last Name Admitted to NICU Weight (g) Sex Living Outcome Pediatric Complications Fetus ID Race Codes Race Delivery Type M Full Term 23934 Vaginal Delivery Juan Calculation Initial Ujan Date Initial Exam Date Initial Exam Provider [...] Domestic Partner Domestic Partner Phone Father Name Shelter Director Status 09/09/19 21 1 CLOSED Fetus Data First Name Last Name Admitted to NICU Weight (g) Sex Living Outcome Pediatric Complications Fetus ID Race Codes Race Delivery Type M Full Term 56286 Vaginal Delivery Juan Calculation Initial Juan Date [...] Domestic Partner Domestic Partner Phone Father Name Shelter Director Status 09/09/19 21 1 CLOSED Fetus Data First Name Last Name Admitted to NICU Weight (g) Sex Living Outcome Pediatric Complications Fetus ID Race Codes Race Delivery Type M Full Term 80952 Vaginal Delivery Juan Calculation Initial Juan Date [...] Domestic Partner Domestic Partner Phone Father Name Shelter Director Status 09/09/19 21 1 CLOSED Fetus Data First Name Last Name Admitted to NICU Weight (g) Sex Living Outcome Pediatric Complications Fetus ID Race Codes Race Delivery Type M Full Term 30453 Vaginal Delivery Juan Calculation Initial Juan Date [...] Domestic Partner Domestic Partner Phone Father Name Shelter Director Status 09/09/19 21 1 CLOSED Fetus Data First Name Last Name Admitted to NICU Weight (g) Sex Living Outcome Pediatric Complications Fetus ID Race Codes Race Delivery Type , Spontane ous 28051 Juan Calculation Initial Juan Date Initial Exam [...]
--- OUTSIDE RECORDS SUMMARY | 2025-02-17 07:47 | XMS_ITS | Encounter Summary ---
Author Organization [facility] Health Address [address] [place] [address] Care Team Providers Care Orthopedics Nurse Name Role Phone Ryan Minor Primary Care Provider [phone] Encounter Details Date Type Department Care Team (Late st Contact Info) Description 08/12/2021 Telephone [facility] [address] [place] [address] Pi, [place] [address] [facility] [address] [place] [address] Social History Tobacco Use Types Packs/Day Years Used Date Smoking Tobacco: Former Smokeless Tobacco: Never Comments:quit 40 years ago Alcohol Use Standard Drinks/Week Comments No 0 (1 standard drink = 0.6 oz pur e alcohol) Comments No Sex and Gender Information Value Date Recorded Sex Assigned at Not on file 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 Answer Date of Assessment Author No 04/30/2018 2:06 PM DISPENSARY TECHNICIAN Robbie Lanza RN * Is person blind [...] of Assessment Author No 04/30/2018 2:06 PM oRbbie Sanders RN documented as of this encounter Mental Status * Does person have difficulty concentrating/remembering/making decisions? Answer Entry Date Author No 04/30/2018 2:06 PM Robbie Sanders RN documented in this encounter Miscellaneous Notes * Telephone Encounter - Jamar Metz - 08/12/2021 8:39 AM CDT Pt called wanting to get an apointment teressa for cataracts. Her MRN is [id number]. Her appointment with shila was bumped her phone number is [phone] documented in this encounter Plan of Treatment Not on file documented as of this encounter Visit Diagnoses Not on filedocumented in this encounter Care Teams Orthopedics Nurse Relationship Specialty Start Date End Date Ryan Minor DO [address] [place] [address] PCP - General 07/02/19 documented as of this encounter
--- OUTSIDE RECORDS SUMMARY | 2025-02-17 07:47 | XMS_ITS | Encounter Summary ---
Author Organization [facility] Health Address [address] [facility] [place] [address] Care Team Providers Care Belt Fixer Name Role Phone Ryan Minor DO Primary Care Provider [phone] Encounter Details Date Type Department Care Team (Late st Contact Info) Description 08/30/2021 Telephone [facility] [address] [place] [address] Ryan Minor DO [address] [place] [address] Social History Tobacco Use Types Packs/Day Years Used Date Smoking Tobacco: Former Smokeless Tobacco: Never Comments:quit 40 years ago Alcohol Use Standard Drinks/Week Comments No 0 (1 standard drink = 0.6 oz pur e alcohol) Comments No Sex and Gender Information Value Date Recorded Sex Assigned at Not on file 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
--- OUTSIDE RECORDS SUMMARY | 2025-02-17 07:47 | XMS_ITS | Clinical Summary ---
Author Organization [facility] Address [address] [place] [address] Care Team Providers Care Rollway Man Name Role Phone Ryan Minor DO Primary Care Provider [phone] Social History Tobacco Use Types Packs/Day Years [...] Scan (General) 02/28/2017 COVID-19 Vaccine ( - 2024-2 6 season) 2024 Influenza Adult (#1) 2025 RSV Immunization or 60+ Years (1 - 1-dose 75+ series) 02/28/2027 Hepatitis A Vaccines Aged Out No long er eligible based on patient's age to complete this topic Meningococcal B Vaccine Aged Out No l onger eligible based on patient's age to complete this topic Meningococcal Vaccine Aged Out No maribell hailey eligible based on patient's age to complete this topic RSV Immunizations Under 20 Months Aged Out No longer eligible based on patient's age to complete this topic Insurance [employer] [facility] [place] [id number] Care Teams Rollway Man Relationship Specialty Start Date End Date Ryan Minor DO [address] [address] PCP - General INTERNAL MEDICINE 07/30/19
--- OUTSIDE RECORDS SUMMARY | 2025-02-17 07:47 | XMS_ITS | Encounter Summary ---
Author Organization [facility] Address [address] [place] [address] Care Team Providers Care Nuclear Scientist Name Role Phone Maria Isabel mSith MI[employer]OS[employer]FT DYNAMICS DEVELOPER Unavailable [phone] Luis Felipe Peña NP Primary Care Provider [phone] Ryan Minor DO Primary Care Provider [phone] Encounter Details Date Type Department Care Team (Late st Contact Info) Description 01/01/2025 Results Follow-Up [facility] Orthopedic and Sports Medicine [address] [place] [id number] Ronnie Lindo PA [address] [place] [address] [place] [address] MRI Lumbar Spine WO Contrast Social History Tobacco Use Types Packs/Day Years Used Date Smoking Tobacco: Former Cigarettes 1 3 - 1978 Smokeless Tobacco: Never Alcohol Use Standard Drinks/Week Comments Yes 0 (1 standard drink = 0.6 oz pur e alcohol) social Comments Unknown Sex and Gender Information Value Date Recorded Sex Assigned at Not on file 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 Please call her @ [phone] * Telephone Encounter - Ronnie Lindo PA - 01/01/2025 4:35 PM CDT Please let the patient know that I have reviewed her MRI. I am happy to have her come into the office so we can further discuss the MRI results or I can contact her via phone and we can discuss referral options. documented in this encounter Plan of Treatment Not on file documented as of this encounter Visit Diagnoses Not on filedocumented in this encounter Care Teams Nuclear Scientist Relationship Specialty Start Date End Date Luis Felipe Peña NP [address] [place] [address] PCP - General Nurse Practitioner 12/12/24 02/02/25 Ryan Minor DO [address] [place] [address] PCP - General Internal Medicine 02/03/25 Maria Isabel Smith NP Nurse Practitioner Nurse Practitioner 09/18/20 documented as of this encounter
--- OUTSIDE RECORDS SUMMARY | 2025-02-17 07:47 | XMS_ITS | Encounter Summary ---
Author Organization [facility] Address [address] [facility] [place] [address] Care Team Providers Care Technical Adjuster Name Role Phone Ryan Minor Primary Care Provider [phone] Encounter Details Date Type Department Care Team (Late st Contact Info) Description 08/30/2021 Telephone [facility] [address] [place] [address] Robbin Yun MD [address] [address] Social History Tobacco Use Types Packs/Day Years Used Date Smoking Tobacco: Former Smokeless Tobacco: Never Comments:quit 40 years ago Alcohol Use Standard Drinks/Week Comments No 0 (1 standard drink = 0.6 oz pur e alcohol) Comments No Sex and Gender Information Value Date Recorded Sex Assigned at Not on file Legal Sex Female 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 Answer Date of Assessment Author No 04/30/2018 2:06 PM ANVIL WORKER Robbie Lanza RN * Is person blind [...] a sleep study. Patient Call Back number: [phone] documented in this encounter Plan of Treatment Not on file documented as of this encounter Visit Diagnoses Not on filedocumented in this encounter Care Teams Technical Adjuster Relationship Specialty Start Date End Date Ryan Minor DO [address] [place] [address] PCP - General 07/02/19 documented as of this encounter
== END 2025-02-17 07:45 | disposition home or self-care (01) ==
PROVIDERS: PCP Nurse Practitioner; Visit Provider Internal Medicine
DX: Z12.31 Encounter for screening mammogram for malignant neoplasm of breast (principal); R92.8 Other abnormal and inconclusive findings on diagnostic imaging of breast
CPT/HCPCS: 77063; 77067